=== PATIENT | female | born 1980 | race American Indian/Alaskan Native ===

== ENCOUNTER 2016-08-15 18:14 | Emergency (ER) | payer MEDICAID, OTHER ==
[2016-08-15 18:23] VITALS: BP 130/84
[2016-08-15] MEDS ORDERED: LORazepam 2 MG/ML MDV IVPUSH ONE (18:43)
[2016-08-15] MEDS ORDERED: Sodium Chloride 0.9% 10 ML Syringe FLUSH PRN (18:44)
[2016-08-15] MEDS ORDERED: Sodium Chloride 0.9% 2,000 ML IV ONE (18:44)
[2016-08-15] MEDS ORDERED: Propranolol 80 MG Cap.ER PO ONE (18:51)
--- NOTE | 2016-08-15 18:55 | EDM.PDOC ---
ED HPI GENERAL MEDICAL PROBLEM - General Chief Complaint: Chest Pain Stated Complaint: CHEST PAINS/ LEFT ARM NUMBNESS Time Seen by Provider: 08/15/16 18:35 Source of Information: Reports: Patient History Limitations: Reports: No Limitations - History of Present Illness INITIAL COMMENTS - FREE TEXT/NARRATIVE: Patient is a 36-year-old female presents ED complaining of numbness and tingling to her fingers bilaterally, left-sided chest discomfort, and anxiety. Patient states she has been 6 months sober and last night decided to drink alcohol again. She drank 2 pints of liquor over the course of the evening and this morning. Patient states she's feeling very anxious and has some mild palpitations. She has eaten today with no nausea or vomiting. Denies any fever/ chills, shortness of breath, abdominal pain, pain with urination, presyncope/ syncopal episodes, or any additional complaints. Duration: Constant Location: Reports: Generalized Severity: Mild Improves with: Reports: None Worsens with: Reports: None Context: Reports: Other (alcohol use) Associated Symptoms: Reports: Chest Pain, Loss of Appetite, Malaise. 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 Endocrine/Metabolic History: Reports: Obesity/BMI 30+ - Past Surgical History Female Surgical History: Reports: Tubal Ligation Social & Family History - Family History Family Medical History: Noncontributory - Tobacco Use Smoking Status *Q: Current Some Day Smoker Years of Tobacco use: 12 Packs/Tins Daily: 0 - Alcohol Use Days Per Week of Alcohol Use: 1 Number of Drinks Per Day: 12 Total Drinks Per Week: 12 Date of Last Drink: 08/15/16 Time of Last Drink: 05:00 - Recreational Drug Use Recreational Drug Use: No Drug Use in Last 12 Months: No ED ROS GENERAL - Review of Systems Review Of Systems: See Below Constitutional: Reports: Decreased Appetite. Denies: Fever, Chills HEENT: Reports: No Symptoms Respiratory: Denies: Shortness of Breath, Cough, Sputum Cardiovascular: Reports: Chest Pain. Denies: Dyspnea on Exertion, Palpitations GI/Abdominal: Denies: Abdominal Pain, Constipation, Diarrhea, Nausea, Vomiting : Denies: Dysuria Neurological: Reports: Dizziness, Numbness, Tingling. Denies: Confusion, Headache, Pre-Existing Deficit, Seizure, Syncope, Difficulty Walking Psychiatric: Reports: Anxiety ED EXAM, BEHAVIORAL HEALTH - Physical Exam Exam: See Below Exam Limited By: No Limitations General Appearance: Alert, WD/WN, Anxious Eye Exam: Bilateral Eye: EOMI, Nystagmus (horizontal), PERRL Ears: Hearing Grossly Normal Nose: Normal Inspection Throat/Mouth: Normal Voice, No Airway Compromise Neck: Normal Inspection, Supple, Non-Tender, Full Range of Motion Respiratory/Chest: No Respiratory Distress, Lungs Clear, Normal Breath Sounds, No Accessory Muscle Use, Chest Non-Tender Cardiovascular: Normal Peripheral Pulses, Regular Rate, Rhythm, No Murmur GI/Abdominal: Normal Bowel Sounds, Soft, Non-Tender, No Organomegaly, No Distention Back Exam: Normal Inspection. No: CVA Tenderness (L), CVA Tenderness (R) Extremities: Normal Inspection, Non-Tender, No Pedal Edema, Normal Capillary Refill Neurological: Alert, Normal Mood/Affect, CN II-XII Intact, Normal Cognition, No Motor/Sensory Deficits, Oriented x 3 Psychiatric: Alert, Normal Affect, Normal Cognition, Normal Mood, Oriented Skin Exam: Warm, Dry, Intact, Normal color, No rash COURSE, BEHAVIORAL HEALTH COMP - Course Vital Signs: Last Vital Signs Temp 98.5 F 08/15/16 18:19 Pulse 97 08/15/16 18:19 Resp 18 08/15/16 18:19 BP 130/84 08/15/16 18:19 Pulse Ox 97 08/15/16 18:19 Orders, Labs, Meds: Active Orders 24 hr Category Date Time Status EKG Documentation Completion [RC] STAT Care 08/15/16 19:29 Active Peripheral IV Care [RC] . DIRECTED Care 08/15/16 18:44 Active Chest 2V [CR] Stat Exams 08/15/16 18:43 Taken Peripheral IV Insertion Adult [OM.PC] Stat Oth 08/15/16 18:43 Ordered Laboratory Tests 08/15/16 08/15/16 08/15/16 Range/Units 19:37 19:37 19:37 WBC 7.77 (3.98-10.04) K/mm3 RBC 4.16 (3.98-5.22) M/mm3 Hgb 12.3 (11.2-15.7) gm/L Hct 37.5 (34.1-44.9) % MCV 90.1 (79.4-94.8) fl MCH 29.6 (25.6-32.2) pg MCHC 32.8 (32.2-35.5) g/dl RDW Std Deviation 48.9 H (36.4-46.3) fL Plt Count 298 (182-369) K/mm3 MPV 9.3 L (9.4-12.3) fl Neut % (Auto) 66.4 (34.0-71.1) % Lymph % (Auto) 24.5 (19.3-51.7) % Hood % (Auto) 7.2 (4.7-12.5) % Eos % (Auto) 1.3 (0.7-5.8) Baso % (Auto) 0.5 (0.1-1.2) % Neut # (Auto) 5.16 (1.56-6.13) K/mm3 Lymph # (Auto) 1.90 (1.18-3.74) K/mm3 Hood # (Auto) 0.56 H (0.24-0.36) K/mm3 Eos # (Auto) 0.10 (0.04-0.36) K/mm3 Baso # (Auto) 0.04 (0.01-0.08) K/mm3 Sodium 145 (136-145) mEq/L Potassium 3.5 (3.5-5.1) mEq/L Chloride 109 H (98-107) mEq/L Carbon Dioxide 20 L (21-32) mEq/L Anion Gap 19.5 H (5-15) BUN 6 L (7-18) mg/dL Creatinine 0.8 (0.55-1.02) mg/dL Est Cr Clr Drug Dosing TNP Estimated GFR (MDRD) > 60 (>60) mL/min BUN/Creatinine Ratio 7.5 L (14-18) Glucose 120 H (74-106) mg/dL Calcium 7.7 L (8.5-10.1) mg/dL Magnesium 1.8 (1.8-2.4) mg/dl Total Bilirubin 0.2 (0.2-1.0) mg/dL AST 34 (15-37) U/L ALT 52 (14-59) U/L Alkaline Phosphatase 80 (46-116) U/L Troponin I < 0.017 (0.00-0.056) ng/mL C-Reactive Protein 0.2 (<1.0) mg/dL Total Protein 7.2 (6.4-8.2) g/dl Albumin 3.5 (3.4-5.0) g/dl Globulin 3.7 gm/dL Albumin/Globulin Ratio 1.0 (1-2) Lipase 71 L (73-393) U/L TSH 3rd Generation 2.614 (0.358-3.74) uIU/mL HCG, Qual Negative (NEGATIVE) Urine Color (Yellow) Urine Appearance (Clear) Urine pH (5.0-8.0) Ur Specific Ren[place] (1.005-1.030) Urine Protein (Negative) Urine Glucose (UA) (Negative) Urine Ketones (Negative) Urine Occult Blood (Negative) Urine Nitrite (Negative) Urine Bilirubin (Negative) Urine Urobilinogen (0.2-1.0) Ur Leukocyte Esterase (Negative) Urine RBC (0-5) /hpf Urine WBC (0-5) /hpf Ur Epithelial Cells Ur Squamous Epith Cells (0-5) /hpf Urine Bacteria (FEW) /hpf Urine Mucus (FEW) /hpf Urine Opiates Screen (NEGATIVE) Ur Buprenorphine Scrn (NEGATIVE) Ur Oxycodone Screen (NEGATIVE) Urine Methadone Screen (NEGATIVE) Ur Propoxyphene Screen (NEGATIVE) Ur Barbiturates Screen (NEGATIVE) Ur Tricyclics Screen (NEGATIVE) Ur Phencyclidine Scrn (NEGATIVE) Ur Amphetamine Screen (NEGATIVE) U Methamphetamines Scrn (NEGATIVE) U Benzodiazepines Scrn (NEGATIVE) U Cocaine Metab Screen (NEGATIVE) U Marijuana (THC) Screen (NEGATIVE) Ethyl Alcohol 0.04 (0.00) gm% 08/15/16 08/15/16 Range/Units 20:26 20:26 WBC (3.98-10.04) K/mm3 RBC (3.98-5.22) M/mm3 Hgb (11.2-15.7) gm/L Hct (34.1-44.9) % MCV (79.4-94.8) fl MCH (25.6-32.2) pg MCHC (32.2-35.5) g/dl RDW Std Deviation (36.4-46.3) fL Plt Count (182-369) K/mm3 MPV (9.4-12.3) fl Neut % (Auto) (34.0-71.1) % Lymph % (Auto) (19.3-51.7) % Hood % (Auto) (4.7-12.5) % Eos % (Auto) (0.7-5.8) Baso % (Auto) (0.1-1.2) % Neut # (Auto) (1.56-6.13) K/mm3 Lymph # (Auto) (1.18-3.74) K/mm3 Hood # (Auto) (0.24-0.36) K/mm3 Eos # (Auto) (0.04-0.36) K/mm3 Baso # (Auto) (0.01-0.08) K/mm3 Sodium (136-145) mEq/L Potassium (3.5-5.1) mEq/L Chloride (98-107) mEq/L Carbon Dioxide (21-32) mEq/L Anion Gap (5-15) BUN (7-18) mg/dL Creatinine (0.55-1.02) mg/dL Est Cr Clr Drug Dosing Estimated GFR (MDRD) (>60) mL/min BUN/Creatinine Ratio (14-18) Glucose (74-106) mg/dL Calcium (8.5-10.1) mg/dL Magnesium (1.8-2.4) mg/dl Total Bilirubin (0.2-1.0) mg/dL AST (15-37) U/L ALT (14-59) U/L Alkaline Phosphatase (46-116) U/L Troponin I (0.00-0.056) ng/mL C-Reactive Protein (<1.0) mg/dL Total Protein (6.4-8.2) g/dl Albumin (3.4-5.0) g/dl Globulin gm/dL Albumin/Globulin Ratio (1-2) Lipase (73-393) U/L TSH 3rd Generation (0.358-3.74) uIU/mL HCG, Qual (NEGATIVE) Urine Color Yellow (Yellow) Urine Appearance Slt cloudy H (Clear) Urine pH 6.0 (5.0-8.0) Ur Specific Ren[place] > or = 1.030 (1.005-1.030) Urine Protein 1+ H (Negative) Urine Glucose (UA) Negative (Negative) Urine Ketones Negative (Negative) Urine Occult Blood 3+ H (Negative) Urine Nitrite Negative (Negative) Urine Bilirubin Negative (Negative) Urine Urobilinogen 0.2 (0.2-1.0) Ur Leukocyte Esterase Negative (Negative) Urine RBC >100 H (0-5) /hpf Urine WBC 0-5 (0-5) /hpf Ur Epithelial Cells Not Reportable Ur Squamous Epith Cells 0-5 (0-5) /hpf Urine Bacteria Moderate H (FEW) /hpf Urine Mucus Not seen (FEW) /hpf Urine Opiates Screen Negative (NEGATIVE) Ur Buprenorphine Scrn Negative (NEGATIVE) Ur Oxycodone Screen Negative (NEGATIVE) Urine Methadone Screen Negative (NEGATIVE) Ur Propoxyphene Screen Negative (NEGATIVE) Ur Barbiturates Screen Negative (NEGATIVE) Ur Tricyclics Screen Negative (NEGATIVE) Ur Phencyclidine Scrn Negative (NEGATIVE) Ur Amphetamine Screen Negative (NEGATIVE) U Methamphetamines Scrn Negative (NEGATIVE) U Benzodiazepines Scrn Negative (NEGATIVE) U Cocaine Metab Screen Negative (NEGATIVE) U Marijuana (THC) Screen Negative (NEGATIVE) Ethyl Alcohol (0.00) gm% Medications Discontinued Medications Generic Name Dose Route Start Last Admin Trade Name Freq PRN Reason Stop Dose Admin Sodium Chloride 2,000 mls @ 999 mls/hr 08/15/16 18:44 08/15/16 19:19 Normal Saline IV 08/15/16 20:44 999 mls/hr ONETIME ONE Administration Lorazepam 1 mg 08/15/16 18:43 08/15/16 19:20 Ativan IVPUSH 08/15/16 18:44 1 mg ONETIME ONE Administration Propranolol HCl 80 mg 08/15/16 18:51 08/15/16 21:14 Inderal La PO 08/15/16 18:52 80 mg ONETIME ONE Administration Sodium Chloride 10 ml 08/15/16 18:44 08/15/16 19:20 Saline Flush FLUSH 10 ml ASDIRECTED PRN Administration Keep Vein Open Re-Assessment/Re-Exam: Ordered a peripheral IV with normal saline 9 and 9 mL per hour, Ativan 1 mg IVP , and Inderal 80 mg p.o. Initial labs and studies include CBC, chem 14, CRP, lipase, EtOH, magnesium, troponin, TSH, EtOH, urine drug tox, and chest x-ray today. EKG: sinus rhythm rate of [address] changes. CXR: Did not reveal any acute findings. Final interpretation is pending. Labs reviewed: CBC is normal. Sodium 145, potassium 3.5, chloride 109, CO2 20, mg 1.8, anion gap is 19.5, Cr 0.8, troponin less than 0.017, lipase and one, TSH 2.614, hCG is negative. EtOH is 0.04. Urine drug tox was negative. Per nursing staff patient states she is back to baseline. She is ready to be discharged home. Will discharge patient with instructions as documented. Departure - Departure Time of Disposition: 21:07 Disposition: Home, Self-Care 01 Condition: good Clinical Impression: Alcohol abuse, Anxiety, Atypical chest pain - Discharge Information Instructions: Nonspecific Chest Pain, [id number] Referrals: Charity Roberts NP [Primary Care Provider] - Forms: ED Department Discharge Additional Instructions: See your PCP this coming week as needed. Refrain from alcohol use. No driving this evening since receiving a sedative medication. Return to the E.D. for any new or worsening symptoms. - My Orders Last 24 Hours: My Active Orders 08/15/16 18:43 Chest 2V [CR] Stat Peripheral IV Insertion Adult [OM.PC] Stat 08/15/16 18:44 Peripheral IV Care [RC] . DIRECTED 08/15/16 19:29 EKG Documentation Completion [RC] STAT - Assessment/Plan Last 24 Hours: My Active Orders 08/15/16 18:43 Chest 2V [CR] Stat Peripheral IV Insertion Adult [OM.PC] Stat 08/15/16 18:44 Peripheral IV Care [RC] . DIRECTED 08/15/16 19:29 EKG Documentation Completion [RC] STAT
--- NOTE | 2016-08-16 12:03 | CR ---
Chest: Two views of the chest were obtained. Comparison: No previous chest x-ray. Heart size and mediastinum are normal. Lungs are clear. Bony structures are grossly intact. Impression: 1. Nothing acute is identified on two-view chest x-ray. Diagnostic code #1
== END 2016-08-15 21:25 | disposition home or self-care (01) ==
LOC: JD.ED 18:14
DX: R07.89 Other chest pain (principal); F41.9 Anxiety disorder, unspecified; F10.10 Alcohol abuse, uncomplicated; J45.909 Unspecified asthma, uncomplicated; E66.9 Obesity, unspecified; F17.200 Nicotine dependence, unspecified, uncomplicated; Z98.51 Tubal ligation status; Y90.0 Blood alcohol level of less than 20 mg/100 ml
CPT/HCPCS: 36415; 71020; 80053; 80306; 81001; 83690; 83735; 84443; 84484; 84703; 85025; 86140; 93005; 96361; 96374; 99285; A9270; G0480; J2060; J7040; J7050; 99284

== ENCOUNTER 2016-09-18 21:15 | Emergency (ER) | payer MEDICAID ==
[2016-09-18 21:32] VITALS: BP 144/102
--- NOTE | 2016-09-18 21:42 | EDM.PDOC ---
ED HPI GENERAL MEDICAL PROBLEM - General Chief Complaint: Drug or Alcohol Abuse Stated Complaint: ANXIETY Time Seen by Provider: 09/18/16 21:42 Source of Information: Reports: Patient History Limitations: Reports: No Limitations - History of Present Illness INITIAL COMMENTS - FREE TEXT/NARRATIVE: 36-year-old female with ancestry attends the ED feeling quite anxious and nauseated and jittery after heavy bout of drinking last night. Patient has a history of alcoholism and quit completely in March. She wasn't going to drink at all last night but a picture arrived on the table and so she opted to have a drink. This led to of course several more drinks and mixed drinks and lost control She is nauseated but did eat a little bit today. She feels it still in her stomach. She has some mild diffuse upper abdominal pain but has not had any vomiting or diarrhea. She does have a mild headache and sinus symptoms of hangover. She's never had a seizure convulsion when she stopped drinking. Onset: Today (Was drinking alcohol very heavily last night.) Onset Date: 09/18/16 (Hangover symptoms plus a lot of anxiety and jitteriness about alcohol use. Good deal of guilt surrounds the use of alcohol because of her history of alcoholism.) Duration: Hour(s): (Finds she just can't relax.) Location: Reports: Generalized Quality: Reports: Other (Anxious.) Severity: Moderate Improves with: Reports: None Worsens with: Reports: None Context: Reports: Other (Heavy alcohol use last evening.). Denies: Activity, Exercise, Lifting, Sick Contact, Trauma Associated Symptoms: Reports: Headaches, Loss of Appetite, Nausea/Vomiting, Weakness, Other (Feels jittery inside.). 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) (9.) - Related Data Allergies Allergy/AdvReac Type Severity Reaction Status Date / Time No Known Allergies Allergy Verified 08/15/16 18:23 Home Meds: Home Meds Cyclobenzaprine [Flexeril] 5 mg PO TID PRN 09/18/16 [History] LORazepam [Ativan] 1 mg PO Q6H PRN #3 tablet 09/18/16 [Rx] Past Medical History - Past Health History Medical/Surgical History: Denies Medical/Surgical History HEENT History: Reports: Impaired Vision Respiratory History: Reports: Asthma Gastrointestinal History: Reports: Helicobacter 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 Endocrine/Metabolic History: Reports: Obesity/BMI 30+ - Past Surgical History Female Surgical History: Reports: Tubal Ligation Social & Family History - Family History Family Medical History: Noncontributory - Tobacco Use Smoking Status *Q: Light Tobacco Smoker Years of Tobacco use: 5 Packs/Tins Daily: 0.1 - Alcohol Use Days Per Week of Alcohol Use: 1 Number of Drinks Per Day: 12 Total Drinks Per Week: 12 - Recreational Drug Use Recreational Drug Use: No Drug Use in Last 12 Months: No - Living Situation & Occupation Living situation: Reports: Single Occupation: Unemployed ED ROS GENERAL - Review of Systems Review Of Systems: See Below Constitutional: Reports: Malaise, Weakness, Fatigue, Decreased Appetite. Denies : Fever, Chills, Weight Loss HEENT: Reports: Other Respiratory: Reports: No Symptoms (Dry mouth) Cardiovascular: Reports: No Symptoms Endocrine: Reports: No Symptoms GI/Abdominal: Reports: Abdominal Pain (Mild upper abdominal pain the pit of the stomach and left upper quadrant.), Nausea. Denies: Stool Incontinence, Vomiting : Reports: No Symptoms Musculoskeletal: Reports: No Symptoms Skin: Reports: No Symptoms Neurological: Reports: Other (Feels anxious and jittery.) Psychiatric: Reports: Anxiety, Other Hematologic/Lymphatic: Reports: No Symptoms Immunologic: Reports: No Symptoms ED EXAM, BEHAVIORAL HEALTH - Physical Exam Exam: See Below Exam Limited By: Uncooperative General Appearance: Alert, Anxious, Moderate Distress Eye Exam: Bilateral Eye: Normal Inspection Throat/Mouth: Normal Inspection, Normal Oropharynx, Other Head: Atraumatic, Normocephalic (Lungs quite dry ) Neck: Normal Inspection, Supple, Non-Tender, Full Range of Motion. No: Lymphadenopathy (L), Lymphadenopathy (R) Respiratory/Chest: No Respiratory Distress, Lungs Clear, Normal Breath Sounds Cardiovascular: Normal Peripheral Pulses, Regular Rate, Rhythm, No Edema, No Murmur GI/Abdominal: Normal Bowel Sounds, Soft, No Distention, No Mass, Tender (Mild tenderness in the epigastrium and left upper quadrant with no rebound or guarding.) Back Exam: Normal Inspection, Full Range of Motion Extremities: Normal Inspection, Normal Range of Motion, Non-Tender, No Pedal Edema, Normal Capillary Refill Neurological: Alert, Normal Mood/Affect, CN II-XII Intact, Normal Cognition, Oriented x 3 Skin Exam: Warm, Dry, Intact, Normal color, No rash COURSE, BEHAVIORAL HEALTH COMP - Course Vital Signs: Last Vital Signs Temp 36.8 C 09/18/16 21:29 Pulse 85 09/18/16 21:29 Resp 16 09/18/16 21:29 BP 144/102 H 09/18/16 21:29 Pulse Ox 98 09/18/16 21:29 Orders, Labs, Meds: Medications Discontinued Medications Generic Name Dose Route Start Last Admin Trade Name José Miguel PRN Reason Stop Dose Admin Lorazepam 2 mg 09/18/16 21:47 09/18/16 21:58 Ativan PO 09/18/16 21:48 2 mg ONETIME ONE Administration Lorazepam Confirm 09/18/16 21:59 Ativan Administered 09/18/16 22:00 Dose 1 mg .ROUTE .STK-MED ONE Lorazepam Confirm 09/18/16 22:22 Ativan Administered 09/18/16 22:23 Dose 3 mg .ROUTE .STK-MED ONE Metoclopramide HCl 10 mg 09/18/16 21:47 09/18/16 21:58 Reglan PO 09/18/16 21:48 10 mg ONETIME ONE Administration Re-Assessment/Re-Exam: 36-year-old female of [place] ancestry presents to the ED after drinking alcohol very heavily last night. She is a chronic alcoholic but stopped drinking in March. She fell off the wagon last night. She feels very jittery and anxious and guilty about what is occurred yesterday. She's not been able to eat much. She feels somewhat nauseated. She's never had a seizure after alcohol binge drinking. Plan Reglan 10 mg by mouth T's nausea and improve her stomach function. Ativan 2 mg per ora to relieve acute anxiety. We'll send her home with rate 1 mg tablets of Ativan from the [facility] said she can take every 6- 8 hours if needed for the next day to relieve anxiety symptoms. Advised to hydrate well with Gatorade or Powerade. Follow-up if needed. Departure - Departure Time of Disposition: 21:55 Disposition: Home, Self-Care 01 Condition: Fair Clinical Impression: Alcohol withdrawal syndrome Qualifiers: Complication of substance-induced condition: uncomplicated Qualified Code(s): F10.230 - Alcohol dependence with withdrawal, uncomplicated - Discharge Information Prescriptions: LORazepam [Ativan] 1 mg PO Q6H PRN #3 tablet PRN Reason: alchol withdrawl Instructions: Alcohol Intoxication, [id number] Referrals: Carmen Epperson MD [Primary Care Provider] - Additional Instructions: Evaluation in the emergency room today in regards to feeling of anxiety nausea and guilt about drinking alcohol heavily last night. History of alcohol abuse in the past but have stopped drinking but fell off the wagon last night. Suggest plenty of fluids such as Gatorade or Powerade to rehydrate you. Your given Reglan 10 mg by mouth that should alleviate nausea and improve stomach function. Ativan 2 mg given by mouth relieve jitteriness and anxiety feelings that you're experiencing. Also sent home 3 tablets of Ativan 1 mg strength of it can be taken every 6-8 hours if needed for further anxiety relief tomorrow. Cannot drive a motor vehicle while taking Ativan as it impairs you similar to alcohol. Follow-up with personal care provider if any further problems occur.
[2016-09-18] MEDS ORDERED: LORazepam 1 MG Tab PO ONE (21:47)
[2016-09-18] MEDS ORDERED: Metoclopramide 10 MG Tab PO ONE (21:47)
[2016-09-18] MEDS ORDERED: LORazepam 1 MG Tab ONE ×2 (21:59→22:22)
== END 2016-09-18 23:03 | disposition home or self-care (01) ==
LOC: JD.ED 21:15
DX: F10.230 Alcohol dependence with withdrawal, uncomplicated (principal); J45.909 Unspecified asthma, uncomplicated; F41.9 Anxiety disorder, unspecified; F17.210 Nicotine dependence, cigarettes, uncomplicated; E66.9 Obesity, unspecified; Z68.42 Body mass index [BMI] 45.0-49.9, adult; Z98.51 Tubal ligation status
CPT/HCPCS: 99283; A9270

== ENCOUNTER 2016-11-05 18:20 | Emergency (ER) | payer MEDICAID ==
[2016-11-05 18:29] VITALS: BP 143/102
--- NOTE | 2016-11-05 19:31 | EDM.PDOC ---
ED HPI GENERAL MEDICAL PROBLEM - General Chief Complaint: Behavioral/Psych Stated Complaint: Anxiety Time Seen by Provider: 11/05/16 19:20 Source of Information: Reports: Patient, Old Records, RN Notes Reviewed History Limitations: Reports: No Limitations - History of Present Illness INITIAL COMMENTS - FREE TEXT/NARRATIVE: 36 year old female presents to the ED with complaints of anxiety and a panic attack. She reports drinking two mixed drinks last night. She awoke this morning feeling hungover and anxious. Around 4 this afternoon she started having a panic attack. She says this has happened in the past after drinking. She says her last drink was in August of this year. She used to drink quite heavily. She does not taking anything for anxiety. She had this same experience in August when she drank and resulted in an ER visit. She denies suicidal ideation or plan. No nausea or vomiting this afternoon. - Related Data Allergies Allergy/AdvReac Type Severity Reaction Status Date / Time No Known Allergies Allergy Verified 11/05/16 18:30 Home Meds: Home Meds Cyclobenzaprine [Flexeril] 5 mg PO TID PRN 09/18/16 [History] LORazepam [Ativan] 1 mg PO Q6H PRN #3 tablet 09/18/16 [Rx] Past Medical History - Past Health History Medical/Surgical History: Denies Medical/Surgical History HEENT History: Reports: Impaired Vision, Other (See Below) Other HEENT History: ringing of ears Cardiovascular History: Reports: Other (See Below) Other Cardiovascular History: chest pains with anxiety attacks Respiratory History: Reports: Asthma Gastrointestinal History: Reports: Helicobacter Pylori 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) Other OB/BYN History: ovarian cyst, hydrosalpinx, menorrhagia, pelvic pain and pressure Musculoskeletal History: Reports: Back Pain, Chronic, Neck Pain, Chronic Psychiatric History: Reports: Addiction, Anxiety Other Psychiatric History: patient has hx of alcohol abuse, was sober for awhile but has been drinking alcohol again Endocrine/Metabolic History: Reports: Obesity/BMI 30+ - Past Surgical History Female Surgical History: Reports: Tubal Ligation Social & Family History - Family History Family Medical History: Noncontributory - Tobacco Use Smoking Status *Q: Current Every Day Smoker Years of Tobacco use: 23 Packs/Tins Daily: 0.2 - Caffeine Use Caffeine Use: Reports: Soda, Tea - Alcohol Use Days Per Week of Alcohol Use: 1 Number of Drinks Per Day: 12 Total Drinks Per Week: 12 - Recreational Drug Use Recreational Drug Use: No Drug Use in Last 12 Months: No - Living Situation & Occupation Living situation: Reports: Single Occupation: Unemployed ED ROS GENERAL - Review of Systems Review Of Systems: See Below Constitutional: Reports: No Symptoms. Denies: Fever, Chills Respiratory: Reports: No Symptoms. Denies: Shortness of Breath Cardiovascular: Reports: No Symptoms. Denies: Chest Pain GI/Abdominal: Reports: No Symptoms. Denies: Abdominal Pain, Nausea, Vomiting Neurological: Reports: No Symptoms. Denies: Headache, Numbness, Tingling, Weakness Psychiatric: Reports: Anxiety ED EXAM, GENERAL - Physical Exam Exam: See Below Exam Limited By: No Limitations General Appearance: Alert, Anxious, Obese Eye Exam: Bilateral Eye: EOMI, PERRL Respiratory/Chest: No Respiratory Distress, Lungs Clear, Normal Breath Sounds Cardiovascular: Regular Rate, Rhythm GI/Abdominal: Normal Bowel Sounds, Soft, Non-Tender Neurological: Alert, Oriented, Normal Cognition, Normal Gait, Other (does not appear intoxicated at this time) Psychiatric: Anxious Skin Exam: Warm, Dry, Intact Course - Vital Signs Last Recorded V/S: Last Vital Signs Temp 98.5 F 11/05/16 18:26 Pulse 91 11/05/16 18:26 Resp 20 11/05/16 18:26 BP 143/102 H 11/05/16 18:26 Pulse Ox 98 11/05/16 18:26 - Orders/Labs/Meds Meds: Medications Discontinued Medications Generic Name Dose Route Start Last Admin Trade Name José Miguel PRN Reason Stop Dose Admin Lorazepam 1 mg 11/05/16 19:29 Ativan IM 11/05/16 19:30 ONETIME ONE - Re-Assessments/Exams Free Text/Narrative Re-Assessment/Exam: Patient does not appear intoxicated. Exam is normal. No further workup needed. Will refer to the clinic for further management of anxiety. Ativan 1mg IM given in the ER for panic attack. Discharge instructions as documented. Departure - Departure Time of Disposition: 20:00 Disposition: Home, Self-Care 01 Condition: Good Clinical Impression: Panic disorder - Discharge Information Instructions: Panic Attacks, [id number] Referrals: PCP,None [Primary Care Provider] - Forms: ED Department Discharge Additional Instructions: Follow-up with your primary care provider if you continue to struggle with anxiety If you do not have a primary care provider, you can establish with one in our clinic. Call [phone] to schedule We have same and next day appointments available. No driving today due to sedating medications given in the ER I recommend that you abstain from alcohol
[2016-11-05] MEDS: LORazepam 2 MG/ML MDV IM ONE ×2 (19:40→19:42)
== END 2016-11-05 19:45 | disposition home or self-care (01) ==
LOC: JD.ED 18:20
DX: F41.0 Panic disorder [episodic paroxysmal anxiety] (principal); J45.909 Unspecified asthma, uncomplicated; E66.9 Obesity, unspecified; F17.210 Nicotine dependence, cigarettes, uncomplicated; Z98.51 Tubal ligation status
CPT/HCPCS: 96372; 99283; J2060

== ENCOUNTER 2017-03-19 12:34 | Emergency (ER) | payer MEDICAID ==
[2017-03-19 12:53] VITALS: BP 160/97
[2017-03-19] MEDS ORDERED: Sodium Chloride 0.9% 10 ML Syringe FLUSH PRN (12:58)
[2017-03-19] MEDS ORDERED: LORazepam 1 MG Tab PO ONE (13:15)
--- NOTE | 2017-03-19 15:38 | EDM.PDOC ---
ED HPI GENERAL MEDICAL PROBLEM - General Chief Complaint: Chest Pain Stated Complaint: CHEST PAIN AND LT ARM PAIN Time Seen by Provider: 03/19/17 12:55 Source of Information: Reports: Patient, RN Notes Reviewed - History of Present Illness INITIAL COMMENTS - FREE TEXT/NARRATIVE: 37-year-old female has come in by ambulance with complaint of severe chest discomfort, palpitations. This was especially bad this past morning about 4-6 hours ago. He'll does have some mild discomfort but now somewhat improved. No abdominal pain nausea or vomiting. She's had occasional nonproductive cough. No recent fever or chills. He states she is borderline diabetic. No known history for hypertension or coronary artery disease. She states she is been dealing with anxiety on "almost a daily basis". Treatments DIRECTOR TRAFFIC AND PLANNING: Reports: Other (see below) Other Treatments DIRECTOR TRAFFIC AND PLANNING: none Chest Pain Score (Numeric/FACES): 4 - Related Data Allergies Allergy/AdvReac Type Severity Reaction Status Date / Time No Known Allergies Allergy Verified 11/05/16 18:30 Home Meds: Home Meds Calcium Carbonate [Calcium] 600 mg PO DAILY 03/19/17 [History] Cholecalciferol (Vitamin D3) [Vitamin D3] 1,000 units PO DAILY 03/19/17 [History ] Fish Oil/[place]-3 Fatty Acids [Fish Oil 1,000 MG] 1 cap PO BID 03/19/17 [History] metFORMIN [Glucophage] 500 mg PO DAILY 03/19/17 [History] Past Medical History - Past Health History Medical/Surgical History: Denies Medical/Surgical History HEENT History: Reports: Impaired Vision, Other (See Below) Other HEENT History: ringing of ears Cardiovascular History: Reports: Other (See Below) Other Cardiovascular History: chest pains with anxiety attacks Respiratory History: Reports: Asthma Gastrointestinal History: Reports: Helicobacter Pylori 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) Other OB/BYN History: ovarian cyst, hydrosalpinx, menorrhagia, pelvic pain and pressure Musculoskeletal History: Reports: Back Pain, Chronic, Neck Pain, Chronic Psychiatric History: Reports: Addiction, Anxiety Other Psychiatric History: patient has hx of alcohol abuse, was sober for awhile but has been drinking alcohol again Endocrine/Metabolic History: Reports: Obesity/BMI 30+ - Past Surgical History Female Surgical History: Reports: Tubal Ligation Social & Family History - Family History Family Medical History: Noncontributory - Tobacco Use Smoking Status *Q: Former Smoker Years of Tobacco use: 23 Packs/Tins Daily: 0.2 Used Tobacco, but Quit: Yes Month Tobacco Last Used: Mar 07 - Caffeine Use Caffeine Use: Reports: None - Alcohol Use Days Per Week of Alcohol Use: 1 Number of Drinks Per Day: 12 Total Drinks Per Week: 12 - Recreational Drug Use Recreational Drug Use: No Drug Use in Last 12 Months: No - Living Situation & Occupation Living situation: Reports: Single Occupation: Unemployed ED ROS GENERAL - Review of Systems Review Of Systems: See Below Constitutional: Denies: Fever, Chills, Diaphoresis HEENT: Denies: Sinus Problem, Throat Pain Respiratory: Reports: Shortness of Breath (mild, gone). Denies: Cough Cardiovascular: Reports: Chest Pain (gone), Blood Pressure Problem, Palpitations GI/Abdominal: Denies: Abdominal Pain, Nausea, Vomiting Musculoskeletal: Reports: No Symptoms Skin: Reports: No Symptoms Neurological: Reports: Dizziness, Numbness, Tingling ED EXAM, GENERAL - Physical Exam Exam: See Below General Appearance: Alert, Anxious, Mild Distress Eye Exam: Bilateral Eye: PERRL Throat/Mouth: Normal Inspection, Normal Oropharynx Head: Atraumatic. No: Facial Swelling Neck: Supple, Full Range of Motion Respiratory/Chest: No Respiratory Distress, Lungs Clear, Normal Breath Sounds Cardiovascular: Regular Rate, Rhythm GI/Abdominal: Soft, Non-Tender Back Exam: No: CVA Tenderness (L), CVA Tenderness (R) Extremities: Normal Inspection, Normal Range of Motion. No: Pedal Edema, Leg Pain Neurological: Alert, Oriented, No Motor/Sensory Deficits Skin Exam: Warm, Dry, Normal Color EKG INTERPRETATION EKG Date: 03/19/17 Rhythm: NSR [place]: Normal P-Wave: Present QRS: Normal ST-T: Normal Course - Vital Signs Last Recorded V/S: Last Vital Signs Temp 97.5 F 03/19/17 12:52 Pulse 79 03/19/17 12:52 Resp 20 03/19/17 12:52 BP 160/97 H 03/19/17 12:52 Pulse Ox 97 03/19/17 12:52 - Orders/Labs/Meds Orders: Active Orders 24 hr Category Date Time Status EKG 12 Lead [EKG Documentation Completion] [RC] STAT Care 03/19/17 12:59 Active Peripheral IV Care [RC] . DIRECTED Care 03/19/17 12:59 Active Sodium Chloride 0.9% [Saline Flush] Med 03/19/17 12:58 Active 10 ml FLUSH ASDIRECTED PRN Peripheral IV Insertion Adult [OM.PC] Stat Oth 03/19/17 12:59 Ordered Medication Orders Sodium Chloride (Saline Flush) 10 ml FLUSH ASDIRECTED PRN PRN Reason: Keep Vein Open Last Admin: 03/19/17 13:33 Dose: 10 ml Labs: Laboratory Tests 03/19/17 03/19/17 03/19/17 Range/Units 13:40 13:40 13:40 WBC 7.83 (3.98-10.04) K/mm3 RBC 4.24 (3.98-5.22) M/mm3 Hgb 13.3 (11.2-15.7) gm/L Hct 39.8 (34.1-44.9) % MCV 93.9 (79.4-94.8) fl MCH 31.4 (25.6-32.2) pg MCHC 33.4 (32.2-35.5) g/dl RDW Std Deviation 45.5 (36.4-46.3) fL Plt Count 267 (182-369) K/mm3 MPV 9.6 (9.4-12.3) fl Neut % (Auto) 68.5 (34.0-71.1) % Lymph % (Auto) 21.5 (19.3-51.7) % [place] % (Auto) 8.3 (4.7-12.5) % Eos % (Auto) 1.1 (0.7-5.8) Baso % (Auto) 0.5 (0.1-1.2) % Neut # (Auto) 5.36 (1.56-6.13) K/mm3 Lymph # (Auto) 1.68 (1.18-3.74) K/mm3 [place] # (Auto) 0.65 H (0.24-0.36) K/mm3 Eos # (Auto) 0.09 (0.04-0.36) K/mm3 Baso # (Auto) 0.04 (0.01-0.08) K/mm3 Manual Slide Review Not Reportable Sodium 141 (136-145) mEq/L Potassium 3.9 (3.5-5.1) mEq/L Chloride 106 (98-107) mEq/L Carbon Dioxide 22 (21-32) mEq/L Anion Gap 16.9 H (5-15) BUN 10 (7-18) mg/dL Creatinine 0.7 (0.55-1.02) mg/dL Est Cr Clr Drug Dosing 108.04 mL/min Estimated GFR (MDRD) > 60 (>60) mL/min BUN/Creatinine Ratio 14.3 (14-18) Glucose 125 H (74-106) mg/dL Calcium 8.7 (8.5-10.1) mg/dL Total Bilirubin 0.3 (0.2-1.0) mg/dL AST 96 H (15-37) U/L ALT 188 H (14-59) U/L Alkaline Phosphatase 79 (46-116) U/L Troponin I < 0.017 (0.00-0.056) ng/mL Total Protein 7.4 (6.4-8.2) g/dl Albumin 3.7 (3.4-5.0) g/dl Globulin 3.7 gm/dL Albumin/Globulin Ratio 1.0 (1-2) Meds: Medications Generic Name Dose Route Start Last Admin Trade Name Freq PRN Reason Stop Dose Admin Sodium Chloride 10 ml 03/19/17 12:58 03/19/17 13:33 Saline Flush FLUSH 10 ml ASDIRECTED PRN Administration Keep Vein Open Discontinued Medications Generic Name Dose Route Start Last Admin Trade Name Freq PRN Reason Stop Dose Admin Lorazepam 1 mg 03/19/17 13:15 03/19/17 13:32 Ativan PO 03/19/17 13:16 1 mg ONETIME ONE Administration - Re-Assessments/Exams Free Text/Narrative Re-Assessment/Exam: 03/19/17 16:05 Labs are all relatively normal, EKG was good. Troponins come back normal. Sats of been running 98-100%. night monitor showing sinus rhythm, no ectopy. We did give Ativan 1 mg IV and that almost immediately helped her relax with no further chest discomfort or palpitations. Departure - Departure Time of Disposition: 15:46 Disposition: Home, Self-Care 01 Condition: Fair Clinical Impression: Atypical chest pain, Anxiety, Palpitations Instructions: Panic Attacks, [id number], Nonspecific Chest Pain Referrals: Carmen Epperson MD [Primary Care Provider] - Forms: ED Department Discharge Additional Instructions: Continue to avoid caffeine, drink plenty of water to maintain hydration, try work harder on a regular exercise program, practice slow deep breathing when you do get anxious, continue current medications as previously prescribed, follow-up with your regular medical provider early next week, call for appointment - My Orders Last 24 Hours: My Active Orders 03/19/17 12:58 Sodium Chloride 0.9% [Saline Flush] 10 ml FLUSH ASDIRECTED PRN 03/19/17 12:59 EKG 12 Lead [EKG Documentation Completion] [RC] STAT Peripheral IV Care [RC] . DIRECTED Peripheral IV Insertion Adult [OM.PC] Stat - Assessment/Plan Last 24 Hours: My Active Orders 03/19/17 12:58 Sodium Chloride 0.9% [Saline Flush] 10 ml FLUSH ASDIRECTED PRN 03/19/17 12:59 EKG 12 Lead [EKG Documentation Completion] [RC] STAT Peripheral IV Care [RC] . DIRECTED Peripheral IV Insertion Adult [OM.PC] Stat
== END 2017-03-19 16:00 | disposition home or self-care (01) ==
LOC: JD.ED 12:34
DX: F41.9 Anxiety disorder, unspecified (principal); R07.89 Other chest pain; Z79.84 Long term (current) use of oral hypoglycemic drugs; Z87.891 Personal history of nicotine dependence
CPT/HCPCS: 36415; 80053; 84484; 85025; 93005; 99285; A9270; J7050; 93010; 99283-25

== ENCOUNTER 2017-08-16 06:03 | Emergency (ER) | payer MEDICAID ==
[2017-08-16] MEDS ORDERED: Sodium Chloride 0.9% 1,000 ML IV STA (06:24)
[2017-08-16] MEDS ORDERED: Sodium Chloride 0.9% 10 ML Syringe FLUSH PRN (06:24)
[2017-08-16] MEDS ORDERED: Ondansetron 4 MG/2 ML SDV IVPUSH ONE (06:24)
[2017-08-16] MEDS ORDERED: HYDROmorphone 0.5 MG/0.5 ML SYRINGE IVPUSH ONE (06:25)
--- NOTE | 2017-08-16 06:35 | EDM.PDOC ---
<RuthyalejandroMikeRaymond - Last Filed: 08/16/17 06:30> ED HPI GENERAL MEDICAL PROBLEM - General Chief Complaint: Abdominal Pain Stated Complaint: ABDOMINAL PAIN Time Seen by Provider: 08/16/17 06:19 Source of Information: Reports: Patient History Limitations: Reports: No Limitations - History of Present Illness INITIAL COMMENTS - FREE TEXT/NARRATIVE: The patient presents with RUQ abdominal pain. This started about 2 this morning. She has a history of gallstones. She last ate last night at 10pm. She has nausea but no vomiting. She has no fever, chills, cough, chest pain, shortness of breath, dysuria or diarrhea. She has not had trouble with her gallbladder in years. Onset: Gradual Duration: Hour(s): (2am) Location: Reports: Abdomen Quality: Reports: Sharp Severity: Severe Improves with: Reports: None Worsens with: Reports: None Associated Symptoms: Reports: Nausea/Vomiting. Denies: Chest Pain, Cough, Fever /Chills, Headaches, Shortness of Breath Right Upper Abdomen Pain Score (Numeric/FACES): 8 - Related Data Allergies Allergy/AdvReac Type Severity Reaction Status Date / Time No Known Allergies Allergy Verified 08/16/17 06:14 Home Meds: Home Meds Calcium Carbonate [Calcium] 600 mg PO DAILY 03/19/17 [History] Cholecalciferol (Vitamin D3) [Vitamin D3] 1,000 units PO DAILY 03/19/17 [History ] Fish Oil/[place]ott-3 Fatty Acids [Fish Oil 1,000 MG] 1 cap PO BID 03/19/17 [History] metFORMIN [Glucophage] 500 mg PO DAILY 03/19/17 [History] Past Medical History - Past Health History Medical/Surgical History: Denies Medical/Surgical History HEENT History: Reports: Impaired Vision, Other (See Below) Other HEENT History: ringing of ears Cardiovascular History: Reports: Other (See Below) Other Cardiovascular History: chest pains with anxiety attacks Respiratory History: Reports: Asthma Gastrointestinal History: Reports: Helicobacter 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) Other OB/BYN History: ovarian cyst, hydrosalpinx, menorrhagia, pelvic pain and pressure Musculoskeletal History: Reports: Back Pain, Chronic, Neck Pain, Chronic Psychiatric History: Reports: Addiction, Anxiety Other Psychiatric History: patient has hx of alcohol abuse Endocrine/Metabolic History: Reports: Diabetes, Type II, Obesity/BMI 30+ - Past Surgical History Female Surgical History: Reports: Tubal Ligation Social & Family History - Family History Family Medical History: Noncontributory - Tobacco Use Smoking Status *Q: Former Smoker Used Tobacco, but Quit: Yes Month/Year Tobacco Last Used: Apr 2017 - Caffeine Use Caffeine Use: Reports: Tea - Recreational Drug Use Recreational Drug Use: No - Living Situation & Occupation Living situation: Reports: Single Occupation: Unemployed ED ROS GENERAL - Review of Systems Review Of Systems: See Below Constitutional: Reports: No Symptoms HEENT: Reports: No Symptoms Respiratory: Reports: No Symptoms Cardiovascular: Reports: No Symptoms Endocrine: Reports: No Symptoms GI/Abdominal: Reports: Abdominal Pain, Nausea. Denies: Diarrhea, Vomiting : Reports: No Symptoms Musculoskeletal: Reports: No Symptoms ED EXAM, GI/ABD - Physical Exam Exam: See Below Exam Limited By: No Limitations General Appearance: Alert, No Apparent Distress Ears: Normal External Exam Nose: Normal Inspection Head: Atraumatic, Normocephalic Neck: Normal Inspection Respiratory/Chest: No Respiratory Distress, Lungs Clear, Normal Breath Sounds Cardiovascular: Regular Rate, Rhythm, No Edema, No Murmur GI/Abdominal Exam: Soft, No Organomegaly, No Mass, Tender (Moderate tenderness to the RUQ) Back Exam: Normal Inspection Extremities: Normal Inspection Course - Vital Signs Last Recorded V/S: Last Vital Signs Temp 98.1 F 08/16/17 06:12 Pulse 71 08/16/17 06:12 Resp 18 08/16/17 06:12 BP 143/67 H 08/16/17 06:12 Pulse Ox 96 08/16/17 06:12 - Orders/Labs/Meds Orders: Active Orders 24 hr Category Date Time Status Peripheral IV Care [RC] . DIRECTED Care 08/16/17 06:24 Active UA W/MICROSCOPIC [URIN] Stat Lab 08/16/17 06:38 Ordered Sodium Chloride 0.9% [Saline Flush] Med 08/16/17 06:24 Active 10 ml FLUSH ASDIRECTED PRN ED Antiemetic Medication Reflex [OM.PC] Stat Oth 08/16/17 06:24 Ordered Peripheral IV Insertion Adult [OM.PC] Stat Oth 08/16/17 06:24 Ordered Medication Orders Sodium Chloride (Saline Flush) 10 ml FLUSH ASDIRECTED PRN PRN Reason: Keep Vein Open Last Admin: 08/16/17 06:45 Dose: 10 ml Labs: Laboratory Tests 08/16/17 08/16/17 08/16/17 Range/Units 06:38 06:40 06:40 WBC 13.83 H (3.98-10.04) K/mm3 RBC 4.25 (3.98-5.22) M/mm3 Hgb 12.9 (11.2-15.7) gm/L Hct 39.7 (34.1-44.9) % MCV 93.4 (79.4-94.8) fl MCH 30.4 (25.6-32.2) pg MCHC 32.5 (32.2-35.5) g/dl RDW Std Deviation 43.9 (36.4-46.3) fL Plt Count 281 (182-369) K/mm3 MPV 10.0 (9.4-12.3) fl Neut % (Auto) 79.2 H (34.0-71.1) % Lymph % (Auto) 14.9 L (19.3-51.7) % [place] % (Auto) 4.7 (4.7-12.5) % Eos % (Auto) 1.0 (0.7-5.8) Baso % (Auto) 0.1 (0.1-1.2) % Neut # (Auto) 10.94 H (1.56-6.13) K/mm3 Lymph # (Auto) 2.06 (1.18-3.74) K/mm3 [place] # (Auto) 0.65 H (0.24-0.36) K/mm3 Eos # (Auto) 0.14 (0.04-0.36) K/mm3 Baso # (Auto) 0.02 (0.01-0.08) K/mm3 Sodium 142 (136-145) mEq/L Potassium 3.8 (3.5-5.1) mEq/L Chloride 106 (98-107) mEq/L Carbon Dioxide 23 (21-32) mEq/L Anion Gap 16.8 H (5-15) BUN 13 (7-18) mg/dL Creatinine 0.9 (0.55-1.02) mg/dL Est Cr Clr Drug Dosing 90.31 mL/min Estimated GFR (MDRD) > 60 (>60) mL/min BUN/Creatinine Ratio 14.4 (14-18) Glucose 118 H (74-106) mg/dL Calcium 8.7 (8.5-10.1) mg/dL Total Bilirubin 0.4 (0.2-1.0) mg/dL AST 18 (15-37) U/L ALT 39 (14-59) U/L Alkaline Phosphatase 72 (46-116) U/L Total Protein 7.8 (6.4-8.2) g/dl Albumin 3.9 (3.4-5.0) g/dl Globulin 3.9 gm/dL Albumin/Globulin Ratio 1.0 (1-2) Lipase 74 (73-393) U/L HCG, Qual (NEGATIVE) Urine Color Yellow (Yellow) Urine Appearance Clear (Clear) Urine pH 7.0 (5.0-8.0) Ur Specific [place] 1.020 (1.005-1.030) Urine Protein Negative (Negative) Urine Glucose (UA) Negative (Negative) Urine Ketones Negative (Negative) Urine Occult Blood Negative (Negative) Urine Nitrite Negative (Negative) Urine Bilirubin Negative (Negative) Urine Urobilinogen 0.2 (0.2-1.0) Ur Leukocyte Esterase Negative (Negative) Urine RBC Not seen (0-5) /hpf Urine WBC 0-5 (0-5) /hpf Ur Epithelial Cells 0-5 (0-5) /hpf Urine Bacteria Few (FEW) /hpf Urine Mucus Not seen (FEW) /hpf 08/16/17 Range/Units 06:40 WBC (3.98-10.04) K/mm3 RBC (3.98-5.22) M/mm3 Hgb (11.2-15.7) gm/L Hct (34.1-44.9) % MCV (79.4-94.8) fl MCH (25.6-32.2) pg MCHC (32.2-35.5) g/dl RDW Std Deviation (36.4-46.3) fL Plt Count (182-369) K/mm3 MPV (9.4-12.3) fl Neut % (Auto) (34.0-71.1) % Lymph % (Auto) (19.3-51.7) % [place] % (Auto) (4.7-12.5) % Eos % (Auto) (0.7-5.8) Baso % (Auto) (0.1-1.2) % Neut # (Auto) (1.56-6.13) K/mm3 Lymph # (Auto) (1.18-3.74) K/mm3 [place] # (Auto) (0.24-0.36) K/mm3 Eos # (Auto) (0.04-0.36) K/mm3 Baso # (Auto) (0.01-0.08) K/mm3 Sodium (136-145) mEq/L Potassium (3.5-5.1) mEq/L Chloride (98-107) mEq/L Carbon Dioxide (21-32) mEq/L Anion Gap (5-15) BUN (7-18) mg/dL Creatinine (0.55-1.02) mg/dL Est Cr Clr Drug Dosing mL/min Estimated GFR (MDRD) (>60) mL/min BUN/Creatinine Ratio (14-18) Glucose (74-106) mg/dL Calcium (8.5-10.1) mg/dL Total Bilirubin (0.2-1.0) mg/dL AST (15-37) U/L ALT (14-59) U/L Alkaline Phosphatase (46-116) U/L Total Protein (6.4-8.2) g/dl Albumin (3.4-5.0) g/dl Globulin gm/dL Albumin/Globulin Ratio (1-2) Lipase (73-393) U/L HCG, Qual Negative (NEGATIVE) Urine Color (Yellow) Urine Appearance (Clear) Urine pH (5.0-8.0) Ur Specific [place] (1.005-1.030) Urine Protein (Negative) Urine Glucose (UA) (Negative) Urine Ketones (Negative) Urine Occult Blood (Negative) Urine Nitrite (Negative) Urine Bilirubin (Negative) Urine Urobilinogen (0.2-1.0) Ur Leukocyte Esterase (Negative) Urine RBC (0-5) /hpf Urine WBC (0-5) /hpf Ur Epithelial Cells (0-5) /hpf Urine Bacteria (FEW) /hpf Urine Mucus (FEW) /hpf Meds: Medications Generic Name Dose Route Start Last Admin Trade Name Freq PRN Reason Stop Dose Admin Sodium Chloride 10 ml 08/16/17 06:24 08/16/17 06:45 Saline Flush FLUSH 10 ml ASDIRECTED PRN Administration Keep Vein Open Discontinued Medications Generic Name Dose Route Start Last Admin Trade Name José Miguel PRN Reason Stop Dose Admin Hydromorphone HCl 0.5 mg 08/16/17 06:25 08/16/17 06:46 Dilaudid IVPUSH 08/16/17 06:26 0.5 mg ONETIME ONE Administration Sodium Chloride 1,000 mls @ 1,000 mls/hr 08/16/17 06:24 08/16/17 06:44 Normal Saline IV 08/16/17 07:23 1,000 mls/hr .BOLUS STA Administration Ondansetron HCl 4 mg 08/16/17 06:24 08/16/17 06:44 Zofran IVPUSH 08/16/17 06:25 4 mg ONETIME ONE Administration - Re-Assessments/Exams Free Text/Narrative Re-Assessment/Exam: 08/16/17 06:34 I ordered an IV NS 1L bolus, labs, UA, US of her gallbladder, dilaudid 0.5mg IV and zofran 4mg IV. Departure - Departure Disposition: Home, Self-Care 01 Clinical Impression: Gall bladder stones Abdominal pain Qualifiers: Abdominal location: upper abdomen, unspecified Qualified Code(s): R10.10 - Upper abdominal pain, unspecified - Discharge Information Referrals: Carmen Epperson MD [Primary Care Provider] - Forms: ED Department Discharge Additional Instructions: avoid fatty foods for now, you may take tylenol or ibuprofen if needed for any further discomfort. See Dr Ballard, [facility] next available appt. to discuss possible surgery. Return to ED as needed. <Ranyd Palmer - Last Filed: 08/16/17 09:39> Course - Re-Assessments/Exams Free Text/Narrative Re-Assessment/Exam: 08/16/17 09:38 Have assumed care from Dr. Martinez after change of shift. I agree with his history and exam as documented. Labs are back and other than white blood count mildly elevated chemistries all are excellent. She is resting very comfortably , her pain is gone. Ultrasound of the gallbladder does show several stones within the gallbladder, largest 1.1 cm. No gallbladder wall thickening or biliary duct dilatation seen. See radiology report for details. Discharge instructions as documented. Departure - Departure Time of Disposition: 09:36 Condition: Fair
--- NOTE | 2017-08-16 09:03 | US ---
Limited abdominal ultrasound: Multiple real-time images of the upper right abdomen were obtained. Comparison: No prior exam. Technologist's note: Suboptimal exam due to body habitus and difficulty holding breath Liver is echogenic likely due to fatty infiltration. Several gallstones are seen within the gallbladder with largest gallstone measuring about 1.1 cm. No gallbladder wall thickening or biliary duct dilatation is seen. Right kidney shows no hydronephrosis or discrete mass. Right kidney has a length of 11.7 cm. Pancreas is incompletely seen and obscured by bowel gas. Inferior vena cava is patent. Portal vein shows normal hepatopedal flow. Impression: 1. Several gallstones without gallbladder wall thickening or biliary duct dilatation. 2. Echogenic liver likely representing fatty infiltration. Diagnostic code #3
[2017-08-16 10:00] VITALS: BP 110/69
== END 2017-08-16 09:55 | disposition home or self-care (01) ==
LOC: JD.ED 06:03
DX: K80.20 Calculus of gallbladder without cholecystitis without obstruction (principal); E11.9 Type 2 diabetes mellitus without complications; E66.9 Obesity, unspecified; Z87.891 Personal history of nicotine dependence
CPT/HCPCS: 36415; 76705; 80053; 81001; 83690; 84703; 85025; 96361; 96374; 96375; 99284; J1170; J2405; J7040; J7050

== ENCOUNTER 2019-07-27 22:12 | Emergency (ER) | payer MEDICAID ==
[2019-07-27 22:27] VITALS: BP 134/109; PULSE 83
[2019-07-27] MEDS ORDERED: LORazepam 1 MG Tab PO ONE (22:45)
--- NOTE | 2019-07-27 22:52 | EDM.PDOCBH ---
ED HPI GENERAL MEDICAL PROBLEM - General Chief Complaint: Behavioral/Psych Stated Complaint: SOB/FEELS FAINT Time Seen by Provider: 07/27/19 22:23 Source of Information: Reports: Patient History Limitations: Reports: No Limitations - History of Present Illness INITIAL COMMENTS - FREE TEXT/NARRATIVE: Ms. Sheets is a very pleasant 39-year-old woman with a past medical history significant for suspected asthma and anxiety with panic attacks, that she treats with hydralazine on an as-needed basis. She states that she has panic attacks once or twice a week, and that the hydralazine usually works well for her. She now presents the ED stating that she and her boyfriend got into an argument around 18:00 tonight, then, around 21:00, she developed dyspnea, chest tightness, rapid palpitations, shakiness, tingling of her fingers and toes, and a generalized feeling of anxiety. Her symptoms are similar to her usual panic attacks, although more severe tonight than usual. She states that she took a hydralazine around 21:00, which has improved her symptoms, but not resolved them. When she was still feeling anxious more than an hour later, she decided it was time to come to the ED for evaluation. Here in the ED, the patient's initial BP is found to be slightly elevated at 134 /109, otherwise, she is hemodynamically stable, afebrile, saturating 98% on room air. The patient denies recent fever, chills, sore throat, ear pain, nasal or sinus congestion, cough, dyspnea, chest pain, palpitations, nausea, vomiting, constipation, diarrhea, abdominal pain, urinary symptoms, recent weight gain or weight loss, recent bloody bowel movements or black bowel movements, recent joint aches, headaches, or rashes. The patient's PCP is Dr. Maylin Lauren. - Related Data Allergies Allergy/AdvReac Type Severity Reaction Status Date / Time morphine AdvReac Severe Headache Verified 07/27/19 22:26 Home Meds: Home Meds Mometasone/Formoterol [Dulera 200 Mcg-5 Mcg Inhaler] 2 puff INH BID 07/27/19 [ History] hydrALAZINE HCl [Hydralazine HCl] 50 mg PO DAILY PRN 07/27/19 [History] Past Medical History HEENT History: Reports: Impaired Vision Respiratory History: Reports: Asthma (suspected, not tested) MEDICAL CENTER REPRESENTATIVE History: Reports: Other (See Below) (Ovarian cysts) Psychiatric History: Reports: Addiction (alcohol), Anxiety, Panic Attack Endocrine/Metabolic History: Reports: Obesity/BMI 30+, Other (See Below) ( Prediabetes) - Past Surgical History HEENT Surgical History: Reports: Other (See Below) (Right facial cyst excision as a child) GI Surgical History: Reports: Cholecystectomy (around 2014) Female Surgical History: Reports: D&C (x 1), Tubal Ligation Social & Family History - Family History Family Medical History: Noncontributory - Tobacco Use Smoking Status *Q: Former Smoker Years of Tobacco use: 16 Packs/Tins Daily: 0.5 Month/Year Tobacco Last Used: Quit Jun 2015 - Caffeine Use Caffeine Use: Reports: Tea - Alcohol Use Alcohol Use History: Yes Date/Time of Last Drink Comment: History of alcohol abuse Alcohol Use Frequency: Socially - Recreational Drug Use Recreational Drug Use: No - Living Situation & Occupation Living situation: Reports: Single, with Significant Other (Boyfriend), with Family (2 kids) Occupation: Unemployed ED ROS GENERAL - Review of Systems Review Of Systems: Comprehensive ROS is negative, except as noted in HPI. Musculoskeletal: Reports: Neck Pain (chronic), Back Pain (chronic) ED EXAM, BEHAVIORAL HEALTH - Physical Exam Exam: See Below Exam Limited By: No Limitations General Appearance: Alert, WD/WN, No Apparent Distress, Anxious Eye Exam: Bilateral Eye: EOMI, Normal Inspection Ears: Normal External Exam, Hearing Grossly Normal Nose: Normal Inspection Throat/Mouth: Normal Inspection, Normal Lips, Normal Voice, No Airway Compromise Head: Atraumatic, Normocephalic Neck: Normal Inspection, Full Range of Motion Respiratory/Chest: No Respiratory Distress, Lungs Clear, Normal Breath Sounds, No Accessory Muscle Use Cardiovascular: Normal Peripheral Pulses, No Edema, No Gallop, No JVD, No Murmur , No Rub, Tachycardia (regular) GI/Abdominal: Normal Bowel Sounds, Soft, Non-Tender, No Organomegaly, No Distention, No Abnormal Bruit, No Mass (Female) Exam: Deferred Rectal (Female) Exam: Deferred Back Exam: Normal Inspection, Full Range of Motion, NT Extremities: Normal Inspection, Normal Range of Motion, No Pedal Edema, Normal Capillary Refill Neurological: Alert, Normal Cognition, No Motor/Sensory Deficits, Oriented x 3 Psychiatric: Other (Anxious) Skin Exam: Warm, Dry, Intact, Normal color, No rash COURSE, BEHAVIORAL HEALTH COMP - Course Vital Signs: Last Vital Signs Temp 36.6 C 07/27/19 22:24 Pulse 83 07/27/19 22:24 Resp 14 07/27/19 22:24 BP 134/109 H 07/27/19 22:24 Pulse Ox 98 07/27/19 22:24 Orders, Labs, Meds: Medications Discontinued Medications Generic Name Dose Route Start Last Admin Trade Name José Miguel PRN Reason Stop Dose Admin Lorazepam 1 mg 07/27/19 22:45 07/27/19 22:58 Ativan PO 07/27/19 22:46 1 mg ONETIME ONE Administration Medical Clearance: 07/27/19 22:45 As above, the patient and I are in agreement that her symptoms of dyspnea, chest tightness, palpitations, shakiness, tingling of her fingers and toes, and generally feeling anxious is due to a panic attack. The patient has similar, if not as severe, symptoms once or twice a week. Neither the patient nor I feel the need for me to order needless tests. Instead, I will order 1 mg of oral Ativan to help calm the patient's nerves, then discharge her with the recommendation that she follow-up with her PCP to discuss long-term treatment options for anxiety. From my perspective, the patient should probably be on an SSRI. Departure - Departure Time of Disposition: 22:49 Disposition: Home, Self-Care 01 Condition: Good Clinical Impression: Panic attack - Discharge Information *PRESCRIPTION DRUG MONITORING PROGRAM REVIEWED*: Not Applicable *COPY OF PRESCRIPTION DRUG MONITORING REPORT IN PATIENT ISAC: Not Applicable Instructions: Panic Attack, [id number] Referrals: Maylin Lauren MD [Primary Care Provider] - Forms: ED Department Discharge Additional Instructions: You were seen in the emergency room after developing shortness of breath, chest tightness, rapid palpitations, shakiness, tingling of your fingers and toes, and generally feeling anxious, symptoms that you get once or twice a week due to a panic attack. You were treated with a single dose of the benzodiazepine Ativan, however, this is not an appropriate long-term treatment for anxiety. We recommend that you follow-up with your PCP, Dr. Maylin Lauren, to discuss long-term treatment options for anxiety, such as an SSRI. If any other problems, please do not hesitate to return to the ER. Sepsis Event Note - Evaluation Sepsis Screening Result: No Definite Risk - Focused Exam Vital Signs: Vital Signs Temp Pulse Resp BP Pulse Ox 07/27/19 22:24 36.6 C 83 14 134/109 H 98 Date Exam was Performed: 07/27/19 Time Exam was Performed: 23:04
== END 2019-07-27 23:00 | disposition home or self-care (01) ==
LOC: JD.ED 22:12
DX: F41.0 Panic disorder [episodic paroxysmal anxiety] (principal); J45.909 Unspecified asthma, uncomplicated; E66.9 Obesity, unspecified; Z68.42 Body mass index [BMI] 45.0-49.9, adult; Z87.891 Personal history of nicotine dependence; Z88.5 Allergy status to narcotic agent
CPT/HCPCS: 99283; A9270

== ENCOUNTER 2019-10-28 15:53 | Inpatient (IN) | payer MEDICAID ==
[2019-10-28] MEDS ORDERED: Ondansetron 4 MG/2 ML SDV IVPUSH ONE (16:23)
[2019-10-28] MEDS ORDERED: Acetaminophen 325 MG Tab PO ONE (16:23)
[2019-10-28] MEDS ORDERED: Dextrose 5%-0.9% NaCl 1,000 ML IV SCH (16:30)
--- NOTE | 2019-10-28 16:42 | EDM.PDOC ---
ED HPI GENERAL MEDICAL PROBLEM - General Chief Complaint: Respiratory Problem Stated Complaint: FEVER SOB AND COUGH Time Seen by Provider: 10/28/19 16:22 Source of Information: Reports: Patient History Limitations: Reports: No Limitations - History of Present Illness INITIAL COMMENTS - FREE TEXT/NARRATIVE: 39-year-old female presents to the ED with a 3-day history of high fever and associated chills/rigors she will cough to the point of emesis at times. Has completely lost her appetite for the most part. She is a known asthmatic and not getting much relief with her albuterol metered-dose inhaler. She was camping for the weekend and had to come home early due to feeling so ill. She denies any diarrhea. To her knowledge she is not been exposed anybody with COVID-19. She was tested for this virus 3 days ago however. He has not heard the results from public [place]. She has 2 children at home and her . Urine production is mostly clear and white. She denies any hemoptysis reports her asthma for the most part has been very well controlled since switching to Dulera inhaler on a daily basis. Onset: Sudden Onset Date: 10/26/19 Duration: Day(s):, Getting Worse Location: Reports: Generalized (Neurolyse myalgia headache paroxysmal minimally productive cough fever and chills) Quality: Reports: Ache, Other (Generalized myalgia. Fever and chills with paroxysmal cough) Severity: Moderate Improves with: Reports: None, Medication (Perhaps albuterol metered-dose inhaler helps a little bit.) Worsens with: Reports: Other (He is worse when she is lying flat.) Associated Symptoms: Reports: Cough, cough w sputum (Paroxysmal cough), Fever/Chills (X3 days), Headaches (.), Loss of Appetite, Malaise, Nausea/Vomiting, Shortness of Breath, Weakness (Vomiting has occurred post tussive.). 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 today.) - Related Data Allergies Allergy/AdvReac Type Severity Reaction Status Date / Time hydromorphone [From Dilaudid] Allergy Severe Change Verified 10/28/19 16:08 Mental Status morphine AdvReac Severe Headache Verified 08/23/20 16:08 Home Meds: Home Meds Mometasone/Formoterol [Dulera 200 Mcg-5 Mcg Inhaler] 2 puff INH BID 07/27/19 [History] hydrALAZINE HCl [Hydralazine HCl] 50 mg PO DAILY PRN 07/27/19 [History] Past Medical History - Past Health History Medical/Surgical History: Denies Medical/Surgical History HEENT History: Reports: Impaired Vision Other HEENT History: ringing of ears Cardiovascular History: Reports: Other (See Below) Other Cardiovascular History: chest pains with anxiety attacks Respiratory History: Reports: Asthma Gastrointestinal History: Reports: Helicobacter Pylori 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 (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 Below) Other ADMINISTRATIVE VOLUNTEER History: ovarian cyst, hydrosalpinx, menorrhagia, pelvic pain and pressure Musculoskeletal History: Reports: Back Pain, Chronic, Neck Pain, Chronic Psychiatric History: Reports: Addiction, Anxiety, Panic Attack Other Psychiatric History: patient has hx of alcohol abuse Endocrine/Metabolic History: Reports: Obesity/BMI 30+, Other (See Below) - Past Surgical History HEENT Surgical History: Reports: Other (See Below) GI Surgical History: Reports: Cholecystectomy Female Surgical History: Reports: D&C, Tubal Ligation, Other (See Below) Other Female Surgeries/Procedures: tubes removed Social & Family History - Family History Family Medical History: Noncontributory - Tobacco Use Smoking Status *Q: Never Smoker Second Hand Smoke Exposure: No - Caffeine Use Caffeine Use: Reports: None - Recreational Drug Use Recreational Drug Use: No - Living Situation & Occupation Living situation: Reports: Single, with Significant Other (Boyfriend), with Family (2 kids) Occupation: Unemployed ED ROS GENERAL - Review of Systems Review Of Systems: See Below Constitutional: Reports: Fever, Chills, Malaise, Weakness, Fatigue, Decreased Appetite HEENT: Reports: Ear Pain (Right hemifacial pain that radiates to her right ear.), Throat Pain (Gradually worsening). Denies: Hearing Loss, Nose Pain, Rhinitis, Sinus Problem, Throat Swelling Respiratory: Reports: Shortness of Breath ( throat pain with difficulty swallowing), Wheezing, Cough, Sputum (There are paroxysmal cough or sputum). Denies: Pleuritic Chest Pain Cardiovascular: Reports: Chest Pain (Total chest pain from coughing so much.), Dyspnea on Exertion, Lightheadedness (Coughing at times nearly passes out). Denies: Blood Pressure Problem, Claudication, Orthopnea, Palpitations Endocrine: Reports: Fatigue GI/Abdominal: Reports: Decreased Appetite, Vomiting (Tussive vomiting.). Denies: Constipation, Diarrhea, Nausea : Reports: No Symptoms Musculoskeletal: Reports: Muscle Pain Skin: Reports: No Symptoms (Generalized myalgia) Neurological: Reports: Headache, Weakness. Denies: Confusion, Dizziness, Trouble Speaking, Difficulty Walking, Change in Speech, Gait Disturbance Psychiatric: Reports: No Symptoms Hematologic/Lymphatic: Reports: No Symptoms Immunologic: Reports: No Symptoms ED EXAM, GENERAL - Physical Exam Exam: See Below Exam Limited By: No Limitations General Appearance: Alert, WD/WN, Moderate Distress (She appears ill.), Other (She was 37.6 and she does feel quite warm to palpation actually warmer than this temperature would suggest. Heart rate was 108 sinus tachycardia in the monitor respiratory 24 with O2 sats of 92 to 96%. BP 132/99 initially.) Eye Exam: Bilateral Eye: Normal Inspection, PERRL Ears: Normal TMs, Other (TMs are mildly dull on inspection but it more to do with her fever. There is no active infection or serous otitis media.) Throat/Mouth: Normal Lips ( posteriorly tonsils are normal.), Normal Teeth, Normal Gums, Other (Mild diffuse pharyngitis) Head: Atraumatic, Normocephalic, Other Neck: Normal Inspection (No signs of head or facial trauma or swelling.), Supple, Non-Tender, Full Range of Motion. No: Carotid Bruit, Lymphadenopathy (L), Lymphadenopathy (R), Thyromegaly Respiratory/Chest: Lungs Clear, No Accessory Muscle Use, Respiratory Distress (Tachypnea at rest.), Decreased Breath Sounds (Breath sounds are slightly diminished to both lung bases lower 20%.). No: Crackles, Rales, Rhonchi, Wheezing Cardiovascular: Normal Peripheral Pulses (Sinus tachycardia 112/min on my assessment), Regular Rate, Rhythm, No Edema, No Gallop, No Murmur, No Rub, Tachycardia Peripheral Pulses: 3+: Carotid (L), Carotid (R), Posterior Tibial (L), Posterior Tibial (R), Dorsalis Pedis (L), Dorsalis Pedis (R) GI/Abdominal: Normal Bowel Sounds, Soft, Non-Tender, No Organomegaly, No Mass, Pelvis Stable, Distended, Other (Christian distended intubated to percussion upper abdomen combined with mild aerophagia. 100 obesity.) Back Exam: Normal Inspection, Full Range of Motion. No: CVA Tenderness (L), CVA Tenderness (R) Extremities: Normal Inspection, Normal Range of Motion, Non-Tender, No Pedal Edema Neurological: Alert, Oriented, CN II-XII Intact, Normal Cognition Psychiatric: Normal Affect, Normal Mood Skin Exam: Warm, Dry, Intact, Normal Color, No Rash EKG INTERPRETATION EKG Date: 10/28/19 Time: 19:23 Rhythm: NSR Rate (Beats/Min): 86 [place]: RAD-Right [place] Deviation (112 degrees) P-Wave: Enlarged (Left atrial hypertrophy small biatrial hypertrophy) QRS: Other (Decreased voltage in the precordial leads with poor R wave progression throughout.) ST-T: Other (T wave flattening in aVF and V3 to V6 nonspecific finding) QT: Prolonged (Moderately prolonged) EKG Interpretation Comments: Abnormal ECG Course - Vital Signs Last Recorded V/S: Last Vital Signs Temp 38.7 C H 10/28/19 17:04 Pulse 108 H 10/28/19 16:06 Resp 24 H 10/28/19 16:06 BP 132/99 H 10/28/19 16:06 Pulse Ox 93 L 10/28/19 16:06 - Orders/Labs/Meds Orders: Active Orders 24 hr Category Date Time Status RT Aerosol Therapy [RC] ASDIRECTED Care 10/28/19 17:44 Active CULTURE BLOOD [BC] Stat Lab 10/28/19 16:45 Received CULTURE BLOOD [BC] Stat Lab 10/28/19 17:00 Received URINALYSIS W/MICROSCOPIC [UA W/MICROSCOPIC] [URIN] Stat Lab 10/28/19 16:24 Ordered Albuterol/Ipratropium [DuoNeb 3.0-0.5 MG/3 ML] Med 10/28/19 17:43 Active 3 ml NEB Q4H PRN Dextrose 5%-0.9% NaCl [Dextrose 5%-Normal Saline] 1,000 Med 10/28/19 16:30 A ctive ml IV ASDIRECTED Ketorolac [Toradol] Med 10/28/19 16:30 Active 30 mg IVPUSH ONETIME Blood Culture x2 Reflex Set [OM.PC] Stat Oth 10/28/19 16:24 Ordered Medication Orders Albuterol/Ipratropium (Duoneb 3.0-0.5 Mg/3 Ml) 3 ml NEB Q4H PRN PRN Reason: Shortness Of Breath/wheezing Last Admin: 10/28/19 18:20 Dose: 3 ml Documented by: ERIN Dextrose/Sodium Chloride (Dextrose 5%-Normal Saline) 1,000 mls @ 999 mls/hr IV ASDIRECTED ANA Last Admin: 10/28/19 17:16 Dose: 999 mls/hr Documented by: MAGDALENA Ketorolac Tromethamine (Toradol) 30 mg IVPUSH ONETIME ANA Last Admin: 10/28/19 18:23 Dose: 30 mg Documented by: Admin: 10/28/19 17:15 Dose: 30 mg Documented by: MAGDALENA Labs: Laboratory Tests 10/28/19 10/28/19 10/28/19 Range/Units 16:45 16:45 16:45 WBC 4.98 (3.98-10.04) K/mm3 RBC 4.13 (3.98-5.22) M/mm3 Hgb 12.1 (11.2-15.7) gm/dl Hct 36.9 (34.1-44.9) % MCV 89.3 D (79.4-94.8) fl MCH 29.3 (25.6-32.2) pg MCHC 32.8 (32.2-35.5) g/dl RDW Std Deviation 48.0 H (36.4-46.3) fL Plt Count 158 L D (182-369) K/mm3 MPV 9.7 (9.4-12.3) fl Neutrophils % (Manual) 78 H (40-60) % Band Neutrophils % 2 (0-10) % Lymphocytes % (Manual) 16 L (20-40) % Atypical Lymphs % 0 % Monocytes % (Manual) 2 (2-10) % Eosinophils % (Manual) 1 (0.7-5.8) % Basophils % (Manual) 1 (0.1-1.2) Platelet Estimate Adequate Anisocytosis 1+ slight RBC Morph Comment Abnormal D-Dimer, Quantitative 0.71 H (0.19-0.50) mg/L Sodium 137 (136-145) mEq/L Potassium 3.2 L (3.5-5.1) mEq/L Chloride 101 (98-107) mEq/L Carbon Dioxide 27 (21-32) mEq/L Anion Gap 12.2 (5-15) BUN 7 (7-18) mg/dL Creatinine 1.0 (0.55-1.02) mg/dL Est Cr Clr Drug Dosing TNP Estimated GFR (MDRD) > 60 (>60) mL/min BUN/Creatinine Ratio 7.0 L (14-18) Glucose 115 H (74-106) mg/dL Calcium 7.8 L (8.5-10.1) mg/dL Magnesium 1.6 L (1.8-2.4) mg/dl Ferritin (8-252) ng/ml Total Bilirubin 0.2 (0.2-1.0) mg/dL AST 86 H (15-37) U/L ALT 105 H (14-59) U/L Alkaline Phosphatase 96 (46-116) U/L Lactate Dehydrogenase (81-234) U/L Troponin I (0.00-0.056) ng/mL C-Reactive Protein 17.1 H* (<1.0) mg/dL Total Protein 6.9 (6.4-8.2) g/dl Albumin 3.0 L (3.4-5.0) g/dl Globulin 3.9 gm/dL Albumin/Globulin Ratio 0.8 L (1-2) 10/28/19 10/28/19 Range/Units 16:45 16:45 WBC (3.98-10.04) K/mm3 RBC (3.98-5.22) M/mm3 Hgb (11.2-15.7) gm/dl Hct (34.1-44.9) % MCV (79.4-94.8) fl MCH (25.6-32.2) pg MCHC (32.2-35.5) g/dl RDW Std Deviation (36.4-46.3) fL Plt Count (182-369) K/mm3 MPV (9.4-12.3) fl Neutrophils % (Manual) (40-60) % Band Neutrophils % (0-10) % Lymphocytes % (Manual) (20-40) % Atypical Lymphs % % Monocytes % (Manual) (2-10) % Eosinophils % (Manual) (0.7-5.8) % Basophils % (Manual) (0.1-1.2) Platelet Estimate Anisocytosis RBC Morph Comment D-Dimer, Quantitative (0.19-0.50) mg/L Sodium (136-145) mEq/L Potassium (3.5-5.1) mEq/L Chloride (98-107) mEq/L Carbon Dioxide (21-32) mEq/L Anion Gap (5-15) BUN (7-18) mg/dL Creatinine (0.55-1.02) mg/dL Est Cr Clr Drug Dosing Estimated GFR (MDRD) (>60) mL/min BUN/Creatinine Ratio (14-18) Glucose (74-106) mg/dL Calcium (8.5-10.1) mg/dL Magnesium (1.8-2.4) mg/dl Ferritin 261 H (8-252) ng/ml Total Bilirubin (0.2-1.0) mg/dL AST (15-37) U/L ALT (14-59) U/L Alkaline Phosphatase (46-116) U/L Lactate Dehydrogenase 355 H (81-234) U/L Troponin I < 0.017 (0.00-0.056) ng/mL C-Reactive Protein (<1.0) mg/dL Total Protein (6.4-8.2) g/dl Albumin (3.4-5.0) g/dl Globulin gm/dL Albumin/Globulin Ratio (1-2) Meds: Medications Generic Name Dose Route Start Last Admin Trade Name Freq PRN Reason Stop Dose Admin Albuterol/Ipratropium 3 ml 10/28/19 17:43 10/28/19 18:20 Duoneb 3.0-0.5 Mg/3 Ml NEB 3 ml Q4H PRN Administration Shortness Of Breath/wheezing Dextrose/Sodium Chloride 1,000 mls @ 999 mls/hr 10/28/19 16:30 10/28/19 17:16 Dextrose 5%-Normal Saline IV 999 mls/hr ASDIRECTED ANA Administration Ketorolac Tromethamine 30 mg 10/28/19 16:30 10/28/19 18:23 Toradol IVPUSH 30 mg ONETIME ANA Administration Discontinued Medications Generic Name Dose Route Start Last Admin Trade Name José Miguel PRN Reason Stop Dose Admin Acetaminophen 975 mg 10/28/19 16:23 10/28/19 17:04 Tylenol PO 10/28/19 16:24 975 mg ONETIME ONE Administration Ondansetron HCl 4 mg 10/28/19 16:23 10/28/19 17:15 Zofran IVPUSH 10/28/19 16:24 4 mg ONETIME ONE Administration - Radiology Interpretation Free Text/Narrative:: 39-year-old female presents to the ED with a 3-day history of high fevers with associated chills/rigors. Associated paroxysmal cough with clear sputum. Feels air hungry. She is a known asthmatic usually well controlled with current medications. She has been using excessive amount of albuterol without much relief. Temperature registered at 103 at home today. Vomiting occurs intermittently from coughing so hard. Associated bad headache worsened by cough. Generalized myalgia. History suggests possible COVID-19 illness. Lungs are clear on initial evaluation. Plan chest x-ray to be done to rule out pneumonia. Routine labs including blood cultures x2. COVID-19 screen and rapid strep to be done. Plan she will have an IV started using D5 normal saline at open since she is not really kept much down for the last 36 hours. She will be given Zofran 4 mg IV to alleviate nausea. Toradol 30 mg IV for headache and body ache relief since she has major side effect problems from narcotics. Will be given 9 7 5 mg of Tylenol 20 minutes after the Zofran has been infused to help with fever. - Re-Assessments/Exams Free Text/Narrative Re-Assessment/Exam: 10/28/19 17:17: Chest x-ray done portably reveals heart size and mediastinum to be normal. Right-sided perihilar markings are increased possibly due to right- sided bronchitis versus early lower lobar pneumonia. Left lung is clear. Bony structures are grossly intact. 10/28/19 17:30: L the patient was in the examining room public health called her and indicated that her COVID-19 test done 3 days ago is positive. Her 's test came back negative. Her children are not assessed. Therefore I canceled her COVID-19 study here in the hospital. I will order COVID-19 labs at this point in time. 10/28/19 18:23 Lab test revealed a normal white count at 4.98. It reveals 78% neutrophils and 2% bands cells. Hemoglobin is 12.1 with hematocrit of 36.9. Platelet count is low at 158,000. D-dimer mildly elevated at 0.71. Sodium 137 with potassium slightly low at 3.2. This goes along with not being able to eat much. Chloride is 101 with a bicarb of 27 anion gap is 12.2. BUN is 7 with a creatinine of 1.0. Estimated GFR is greater than 60. Glucose is 115 calcium is low at 7.8 magnesium is low at 1.6. Serum ferritin is elevated at 261. Total bilirubin 0.2 AST elevated at 86 and ALT is elevated at 105. Alk phosphatase is normal at 96. LDH is elevated at 355. Troponin I is less than 0.017 C- reactive protein is 17.1. Total protein is 6.9 with an albumin fraction of 3.0. Dr. Chan is aware and will admit the patient to [facility] surgery for observation status due to developing pneumonia right lower lobe and a history of asthma and obesity she has a chance of deteriorating because of COVID-19 infection. He was given a DuoNeb prior to discharge from the ED. 10/28/19 19:33 patient will have a second liter of fluids started with D5 LR with 40 mg of KCl per liter to run at 125 mils per hour. Will repeat 9 7 5 mg of Tylenol p.o. for fever and body ache relief. Departure - Departure Time of Disposition: 19:34 Disposition: Refer to Observation Condition: Fair Clinical Impression: Hypoxia, Lab test positive for detection of COVID-19 virus, Vomiting, Hypokalemia, Hypomagnesemia Asthma Qualifiers: Asthma severity: moderate Asthma persistence: persistent Asthma complication type: uncomplicated Qualified Code(s): J45.40 - Moderate persistent asthma, uncomplicated Pneumonia Qualifiers: Laterality: right Lung location: lower lobe of lung - Discharge Information *PRESCRIPTION DRUG MONITORING PROGRAM REVIEWED*: Not Applicable *COPY OF PRESCRIPTION DRUG MONITORING REPORT IN PATIENT ISAC: Not Applicable Instructions: Hypoxemia, Hypomagnesemia, Hypokalemia, Asthma, Adult, COVID-19: How to Protect Yourself and Others - CDC, COVID-19 Referrals: Maylin Lauren MD [Primary Care Provider] - Forms: ED Department Discharge Sepsis Event Note (ED) - Evaluation Sepsis Screening Result: No Definite Risk - Focused Exam Vital Signs: Vital Signs Temp Temp Pulse Resp BP Pulse Ox 10/28/19 17:04 38.7 C H 10/28/19 16:06 37.6 C 108 H 24 H 132/99 H 93 L - My Orders Last 24 Hours: My Active Orders 10/28/19 16:24 URINALYSIS W/MICROSCOPIC [UA W/MICROSCOPIC] [URIN] Stat Blood Culture x2 Reflex Set [OM.PC] Stat 10/28/19 16:30 Dextrose 5%-0.9% NaCl [Dextrose 5%-Normal Saline] 1,000 ml IV ASDIRECTED Ketorolac [Toradol] 30 mg IVPUSH ONETIME 10/28/19 16:45 CULTURE BLOOD [BC] Stat 10/28/19 17:00 CULTURE BLOOD [BC] Stat 10/28/19 17:43 Albuterol/Ipratropium [DuoNeb 3.0-0.5 MG/3 ML] 3 ml NEB Q4H PRN 10/28/19 17:44 RT Aerosol Therapy [RC] ASDIRECTED - Assessment/Plan Last 24 Hours: My Active Orders 10/28/19 16:24 URINALYSIS W/MICROSCOPIC [UA W/MICROSCOPIC] [URIN] Stat Blood Culture x2 Reflex Set [OM.PC] Stat 10/28/19 16:30 Dextrose 5%-0.9% NaCl [Dextrose 5%-Normal Saline] 1,000 ml IV ASDIRECTED Ketorolac [Toradol] 30 mg IVPUSH ONETIME 10/28/19 16:45 CULTURE BLOOD [BC] Stat 10/28/19 17:00 CULTURE BLOOD [BC] Stat 10/28/19 17:43 Albuterol/Ipratropium [DuoNeb 3.0-0.5 MG/3 ML] 3 ml NEB Q4H PRN 10/28/19 17:44 RT Aerosol Therapy [RC] ASDIRECTED
[2019-10-28] MEDS: Ketorolac 30 MG/ML SDV IVPUSH SCH ×2 (17:15→18:23)
--- NOTE | 2019-10-28 17:20 | CR ---
Chest: Portable supine view of the chest was obtained. Comparison: Previous chest x-ray of 08/15/16. Heart size and mediastinum are normal. Right-sided perihilar markings are increased possibly due to right-sided bronchitis. Difficult to exclude right lower lobe pneumonia. Left lung is clear. Bony structures are grossly intact. Impression: 1. Probable right-sided bronchitis and difficult to exclude early right lower lobe pneumonia. Diagnostic code #3 This report was dictated in MDT
[2019-10-28] MEDS ORDERED: Albuterol/Ipratropium 3.0-0.5 MG/3 ML Neb Soln NEB PRN (17:43)
[2019-10-28] MEDS ORDERED: Potassium Chloride 40 MEQ in Dextrose 5%-Lactated Ringers 1,000 ML IV SCH (19:45)
[2019-10-28] MEDS ORDERED: Potassium Chloride 20 MEQ Tab.ER PO ONE (19:45)
[2019-10-28] MEDS ORDERED: Magnesium Sulfate/Water 4 GM in Premix Bag 1 BAG IV ONE (20:12)
[2019-10-28] MEDS: Acetaminophen 325 MG Tab PO PRN (20:50)
[2019-10-28] MEDS ORDERED: Ondansetron 4 MG/2 ML SDV IV PRN (22:47)
--- NOTE | 2019-10-28 22:57 | PCM.HP.2 ---
H&P History of Present Illness - General Date of Service: 10/28/19 Admit Problem/Dx: Admission Diagnosis/Problem Admission Diagnosis/Problem Pneumonia - History of Present Illness Initial Comments - Free Text/Narative: 39-year-old female presents emergency department after 3 days of fever, chills, and cough. She states that her temperature was 103 at home. She complains of a headache. She states that she has been coughing so hard that she vomits. She has decreased in appetite. She was camping over the weekend and went home because she was feeling ill. Patient was tested for the coronavirus 3 days prio r to admission and while she was in the emergency department she had a phone call from the health department failure she was positive for COVID-19. Patient has a history of asthma and is on Dulera for maintenance. Patient's oxygen saturations were in the low 90s on room air in the emergency department. She had a temperature of 101.7. Chest x-ray showed Right sided perihilar markings likely due to bronchitis but difficult to exclude right lower lobe pneumonia. Initial labs:WBC 5000, hemoglobin 12.1, platelet count 158, d-dimer 0.71, C- reactive protein 17.1, troponin I less than 0.017, LDH 355, ferritin 261, magnesium 1.6, potassium 3.2, BUN 7, creatinine 1.0 Patient was admitted to the floor for observation because of her mildly reduced oxygen saturations and history of asthma. - Related Data Allergies/Adverse Reactions: Allergies Allergy/AdvReac Type Severity Reaction Status Date / Time hydromorphone [From Dilaudid] Allergy Severe Change Verified 10/28/19 22:04 Mental Status morphine AdvReac Severe Headache Verified 10/28/19 22:04 Home Medications: Home Meds Mometasone/Formoterol [Dulera 200 Mcg-5 Mcg Inhaler] 2 puff INH BID 07/27/19 [History] hydrALAZINE HCl [Hydralazine HCl] 50 mg PO DAILY PRN 07/27/19 [History] Past Medical History - Past Health History Medical/Surgical History: Denies Medical/Surgical History HEENT History: Reports: Impaired Vision Other HEENT History: ringing of ears Cardiovascular History: Reports: Other (See Below) Other Cardiovascular History: chest pains with anxiety attacks Respiratory History: Reports: Asthma Gastrointestinal History: Reports: Helicobacter Pylori [employer] History: Reports: Other (See Below) Other OB/BYN History: ovarian cyst, hydrosalpinx, menorrhagia, pelvic pain and pressure Musculoskeletal History: Reports: Back Pain, Chronic, Neck Pain, Chronic Psychiatric History: Reports: Addiction, Anxiety, Panic Attack Other Psychiatric History: patient has hx of alcohol abuse Endocrine/Metabolic History: Reports: Obesity/BMI 30+, Other (See Below) - Infectious Disease History Infectious Disease History: Reports: Novel Coronavirus - Past Surgical History HEENT Surgical History: Reports: Other (See Below) GI Surgical History: Reports: Cholecystectomy Female Surgical History: Reports: D&C, Tubal Ligation, Other (See Below) Other Female Surgeries/Procedures: tubes removed Social & Family History - Family History Family Medical History: Noncontributory - Tobacco Use Smoking Status *Q: Never Smoker Second Hand Smoke Exposure: No - Caffeine Use Caffeine Use: Reports: None - Recreational Drug Use Recreational Drug Use: No - Living Situation & Occupation Living situation: Reports: Single, with Significant Other (Boyfriend), with Family (2 kids) Occupation: Unemployed H&P Review of Systems - Review of Systems: Review Of Systems: Comprehensive ROS is negative, except as noted in HPI. Exam - Exam Exam: See Below - Vital Signs Vital Signs: Last Vital Signs Temp 96.5 F L 10/28/19 20:32 Pulse 108 H 10/28/19 16:06 Resp 19 10/28/19 20:32 BP 124/86 10/28/19 20:32 Pulse Ox 92 L 10/28/19 20:32 Weight: 143.471 kg - Exam Quality Assessment: No: Supplemental Oxygen General: Alert, Oriented, 4 HEENT: Conjunctiva Clear, EOMI, Hearing Intact, Mucosa Moist & [place] Neck: Supple, Trachea Midline, 2 Lungs: Clear to Auscultation, Normal Respiratory Effort Cardiovascular: Regular Rate, Regular Rhythm GI/Abdominal Exam: Normal Bowel Sounds, Soft, Non-Tender, No Organomegaly, No Distention, No Abnormal Bruit Back Exam: Normal Inspection Extremities: Normal Inspection, Normal Range of Motion, Non-Tender, No Pedal Edema, Normal Capillary Refill Skin: Warm, Dry, Intact Neurological: Cranial Nerves Intact Neuro Extensive - Mental Status: Alert, Oriented x3, Normal Mood/Affect, Normal Cognition, Memory Intact Neuro Extensive - Motor, Sensory, Reflexes: CN II-XII Intact, Normal Gait Psychiatric: Alert, Normal Affect, Normal Mood - Patient Data Lab Results Last 24 hrs: Laboratory Results - last 24 hr 10/28/19 10/28/19 10/28/19 Range/Units 16:45 16:45 16:45 WBC 4.98 (3.98-10.04) K/mm3 RBC 4.13 (3.98-5.22) M/mm3 Hgb 12.1 (11.2-15.7) gm/dl Hct 36.9 (34.1-44.9) % MCV 89.3 D (79.4-94.8) fl MCH 29.3 (25.6-32.2) pg MCHC 32.8 (32.2-35.5) g/dl RDW Std Deviation 48.0 H (36.4-46.3) fL Plt Count 158 L D (182-369) K/mm3 MPV 9.7 (9.4-12.3) fl Neutrophils % (Manual) 78 H (40-60) % Band Neutrophils % 2 (0-10) % Lymphocytes % (Manual) 16 L (20-40) % Atypical Lymphs % 0 % Monocytes % (Manual) 2 (2-10) % Eosinophils % (Manual) 1 (0.7-5.8) % Basophils % (Manual) 1 (0.1-1.2) Platelet Estimate Adequate Anisocytosis 1+ slight RBC Morph Comment Abnormal D-Dimer, Quantitative 0.71 H (0.19-0.50) mg/L Sodium 137 (136-145) mEq/L Potassium 3.2 L (3.5-5.1) mEq/L Chloride 101 (98-107) mEq/L Carbon Dioxide 27 (21-32) mEq/L Anion Gap 12.2 (5-15) BUN 7 (7-18) mg/dL Creatinine 1.0 (0.55-1.02) mg/dL Est Cr Clr Drug Dosing TNP Estimated GFR (MDRD) > 60 (>60) mL/min BUN/Creatinine Ratio 7.0 L (14-18) Glucose 115 H (74-106) mg/dL Calcium 7.8 L (8.5-10.1) mg/dL Magnesium 1.6 L (1.8-2.4) mg/dl Ferritin (8-252) ng/ml Total Bilirubin 0.2 (0.2-1.0) mg/dL AST 86 H (15-37) U/L ALT 105 H (14-59) U/L Alkaline Phosphatase 96 (46-116) U/L Lactate Dehydrogenase (81-234) U/L Troponin I (0.00-0.056) ng/mL C-Reactive Protein 17.1 H* (<1.0) mg/dL Total Protein 6.9 (6.4-8.2) g/dl Albumin 3.0 L (3.4-5.0) g/dl Globulin 3.9 gm/dL Albumin/Globulin Ratio 0.8 L (1-2) 10/28/19 10/28/19 Range/Units 16:45 16:45 WBC (3.98-10.04) K/mm3 RBC (3.98-5.22) M/mm3 Hgb (11.2-15.7) gm/dl Hct (34.1-44.9) % MCV (79.4-94.8) fl MCH (25.6-32.2) pg MCHC (32.2-35.5) g/dl RDW Std Deviation (36.4-46.3) fL Plt Count (182-369) K/mm3 MPV (9.4-12.3) fl Neutrophils % (Manual) (40-60) % Band Neutrophils % (0-10) % Lymphocytes % (Manual) (20-40) % Atypical Lymphs % % Monocytes % (Manual) (2-10) % Eosinophils % (Manual) (0.7-5.8) % Basophils % (Manual) (0.1-1.2) Platelet Estimate Anisocytosis RBC Morph Comment D-Dimer, Quantitative (0.19-0.50) mg/L Sodium (136-145) mEq/L Potassium (3.5-5.1) mEq/L Chloride (98-107) mEq/L Carbon Dioxide (21-32) mEq/L Anion Gap (5-15) BUN (7-18) mg/dL Creatinine (0.55-1.02) mg/dL Est Cr Clr Drug Dosing Estimated GFR (MDRD) (>60) mL/min BUN/Creatinine Ratio (14-18) Glucose (74-106) mg/dL Calcium (8.5-10.1) mg/dL Magnesium (1.8-2.4) mg/dl Ferritin 261 H (8-252) ng/ml Total Bilirubin (0.2-1.0) mg/dL AST (15-37) U/L ALT (14-59) U/L Alkaline Phosphatase (46-116) U/L Lactate Dehydrogenase 355 H (81-234) U/L Troponin I < 0.017 (0.00-0.056) ng/mL C-Reactive Protein (<1.0) mg/dL Total Protein (6.4-8.2) g/dl Albumin (3.4-5.0) g/dl Globulin gm/dL Albumin/Globulin Ratio (1-2) Result Diagrams: 10/29/19 05:34 10/29/19 05:34 Sepsis Event Note - Evaluation Sepsis Screening Result: No Definite Risk - Focused Exam Vital Signs: Vital Signs Temp Temp Pulse Resp BP Pulse Ox 10/28/19 20:32 96.5 F L 19 124/86 92 L 10/28/19 17:04 101.6 F H 10/28/19 16:06 99.7 F 108 H 24 H 132/99 H 93 L - Problem List (1) Asthma SNOMED Code(s): 213866091 ICD Code: J45.909 - UNSPECIFIED ASTHMA, UNCOMPLICATED Status: Acute Current Visit: Yes Qualifiers: Asthma severity: moderate Asthma persistence: persistent Asthma complication type: uncomplicated Qualified Code(s): J45.40 - Moderate persiste nt asthma, uncomplicated (2) Hypokalemia SNOMED Code(s): 23166340 ICD Code: E87.6 - HYPOKALEMIA Status: Acute Current Visit: Yes (3) Hypomagnesemia SNOMED Code(s): 783349025 ICD Code: E83.42 - HYPOMAGNESEMIA Status: Acute Current Visit: Yes (4) Hypoxia SNOMED Code(s): 285363251 ICD Code: R09.02 - HYPOXEMIA Status: Acute Current Visit: Yes (5) Lab test positive for detection of COVID-19 virus SNOMED Code(s): 196299139, 917792311 ICD Code: U07.1 - COVID-19 Status: Acute Current Visit: Yes (6) Pneumonia SNOMED Code(s): 826381722 ICD Code: J18.9 - PNEUMONIA, UNSPECIFIED ORGANISM Status: Acute Current Visit: Yes Qualifiers: Laterality: right Lung location: lower lobe of lung Problem List Initiated/Reviewed/Updated: Yes Orders Last 24hrs: Active Orders 24 hr Category Date Time Status Patient Status [ADT] Routine ADT 10/28/19 19:10 Active Oxygen Therapy [RC] PRN Care 10/28/19 22:48 Active RT Aerosol Therapy [RC] ASDIRECTED Care 10/28/19 17:44 Active RT Post Treatment Assessment [RC] Click to Edit Care 10/28/19 22:16 Active RT Pre-Treatment Assessment [RC] Click to Edit Care 10/28/19 22:16 Active Up ad Monse [RC] ASDIRECTED Care 10/28/19 22:47 Active VTE/DVT Education [RC] PER UNIT ROUTINE Care 10/28/19 22:48 Active Vital Signs [RC] ASDIRECTED Care 10/28/19 22:47 Active Regular Diet [DIET] Diet 10/29/19 Breakfast Active C-REACTIVE PROTEIN [CHEM] AM Lab 10/29/19 05:11 Ordered C-REACTIVE PROTEIN [CHEM] AM Lab 10/30/19 05:11 Ordered C-REACTIVE PROTEIN [CHEM] AM Lab 10/31/19 05:11 Ordered C-REACTIVE PROTEIN [CHEM] AM Lab 11/01/19 05:11 Ordered C-REACTIVE PROTEIN [CHEM] AM Lab 11/02/19 05:11 Ordered CBC WITH AUTO DIFF [HEME] AM Lab 10/29/19 05:11 Ordered CBC WITH AUTO DIFF [HEME] AM Lab 10/30/19 05:11 Ordered CBC WITH AUTO DIFF [HEME] AM Lab 10/31/19 05:11 Ordered CBC WITH AUTO DIFF [HEME] AM Lab 11/01/19 05:11 Ordered CBC WITH AUTO DIFF [HEME] AM Lab 11/02/19 05:11 Ordered COMPREHENSIVE METABOLIC PN,CMP [CHEM] AM Lab 10/29/19 05:11 Ordered COMPREHENSIVE METABOLIC PN,CMP [CHEM] AM Lab 10/30/19 05:11 Ordered COMPREHENSIVE METABOLIC PN,CMP [CHEM] AM Lab 10/31/19 05:11 Ordered COMPREHENSIVE METABOLIC PN,CMP [CHEM] AM Lab 11/01/19 05:11 Ordered COMPREHENSIVE METABOLIC PN,CMP [CHEM] AM Lab 11/02/19 05:11 Ordered CULTURE BLOOD [BC] Stat Lab 10/28/19 16:45 Received CULTURE BLOOD [BC] Stat Lab 10/28/19 17:00 Received INR,PT,PROTHROMBIN TIME [COAG] Routine Lab 10/28/19 22:55 Ordered MAGNESIUM [CHEM] AM Lab 10/29/19 05:11 Ordered MAGNESIUM [CHEM] AM Lab 10/30/19 05:11 Ordered MAGNESIUM [CHEM] AM Lab 10/31/19 05:11 Ordered MAGNESIUM [CHEM] AM Lab 11/01/19 05:11 Ordered MAGNESIUM [CHEM] AM Lab 11/02/19 05:11 Ordered PHOSPHORUS [CHEM] AM Lab 10/29/19 05:11 Ordered PHOSPHORUS [CHEM] AM Lab 10/30/19 05:11 Ordered PHOSPHORUS [CHEM] AM Lab 10/31/19 05:11 Ordered PHOSPHORUS [CHEM] AM Lab 11/01/19 05:11 Ordered PHOSPHORUS [CHEM] AM Lab 11/02/19 05:11 Ordered PROCALCITONIN [REF] Routine Lab 10/28/19 22:54 Ordered PTT,PARTIAL THROMBOPLSTIN TIME [COAG] Routine Lab 10/28/19 22:55 Ordered URINALYSIS W/MICROSCOPIC [UA W/MICROSCOPIC] [URIN] Stat Lab 10/28/19 16:24 Ordered Acetaminophen [TylenoL] Med 10/28/19 20:42 Active 650 mg PO Q4H PRN Albuterol [Proventil HFA] Med 10/29/19 09:00 Pending See Dose Instructions INH QID Azithromycin [Zithromax] 500 mg Med 10/28/19 23:00 Ordered Sodium Chloride 0.9% [Normal Saline] 250 ml IV Q24H Dextrose 5%-0.9% NaCl [Dextrose 5%-Normal Saline] 1,000 Med 10/28/19 16:30 Active ml IV ASDIRECTED Enoxaparin [Lovenox] Med 10/29/19 09:00 Ordered 40 mg SUBCUT BID Glycopyrrolate [Seebri Neohaler] Med 10/29/19 09:00 Pending 15.6 mcg IH BID Ketorolac [Toradol] Med 10/29/19 00:30 Active 30 mg IVPUSH Q6H PRN Magnesium Sulfate/Water [Magnesium Sulfate in Water Med 10/28/19 20:12 Active Premix] 4 gm Premix Bag 1 bag IV ONETIME Mometasone/Formoterol [Dulera 200-5 MCG] Med 10/29/19 09:00 Active 2 puff IH BID Ondansetron [Zofran] Med 10/28/19 22:47 Ordered 4 mg IV Q4H PRN Sodium Chloride 0.9% [Saline Flush] Med 10/28/19 22:52 Ordered 10 ml FLUSH ASDIRECTED PRN Blood Culture x2 Reflex Set [OM.PC] Stat Oth 10/28/19 16:24 Ordered Saline Lock Insert [OM.PC] Routine Oth 10/28/19 22:47 Ordered Resuscitation Status Routine Resus Stat 10/28/19 22:47 Ordered Medication Orders Acetaminophen (Tylenol) 650 mg PO Q4H PRN PRN Reason: Fever Last Admin: 10/28/19 20:50 Dose: 650 mg Documented by: CHUCK Albuterol (Proventil Hfa) 0 gm INH QID ANA Enoxaparin Sodium (Lovenox) 40 mg SUBCUT BID ANA Glycopyrrolate (Seebri Neohaler) 15.6 mcg IH BID ANA Dextrose/Sodium Chloride (Dextrose 5%-Normal Saline) 1,000 mls @ 999 mls/hr IV ASDIRECTED ANA Last Admin: 10/28/19 17:16 Dose: 999 mls/hr Documented by: MAGDALENA Magnesium Sulfate 4 gm/ Premix 50 mls @ 12.5 mls/hr IV ONETIME ONE Stop: 10/29/19 00:11 Last Admin: 10/28/19 20:32 Dose: 12.5 mls/hr Documented by: CHUCK Ketorolac Tromethamine (Toradol) 30 mg IVPUSH Q6H PRN PRN Reason: Pain Stop: 11/02/19 00:31 Mometasone Furoate/Formoterol Fumar (Dulera 200-5 Mcg) 2 puff IH BID ANA Ondansetron HCl (Zofran) 4 mg IV Q4H PRN PRN Reason: Nausea/Vomiting Sodium Chloride (Saline Flush) 10 ml FLUSH ASDIRECTED PRN PRN Reason: Keep Vein Open Assessment/Plan Comment:: Assessment COVID positive infection * Testing done 3 days ago. * Symptoms include severe cough, shortness of breath, high fever, chills, and emesis. * Mildly hypoxic with a pulse ox in the low 90% on room air * D-dimer 0.7, C-reactive protein 17.1, negative troponin, ferritin 261, LDH 355 Pneumonia versus bronchitis right lower lobe * WBC 5 * CRP 17.1 Asthma * On Dulera at home. * Mild shortness of breath and cough. Hypomagnesemia, hypokalemia * Magnesium 1.6, potassium 3.2 Plan * Refer for observation secondary to borderline hypoxia and asthma placing her at much greater risk for complications. * Start azithromycin * Hold off on remdesivir secondary to not requiring supplemental oxygen * Consider dexamethasone if symptoms are not improving or requiring steroids to treat her asthma, or requiring supplemental oxygen. * Strict isolation * [place]ebri 1 puff daily * Albuterol 2 puffs 4 times daily * Toradol and ibuprofen as needed for headache and pain. * Magnesium and potassium replacement * Procalcitonin * CBC, CMP, magnesium daily * Trend C-reactive protein and d-dimer. * VTE prophylaxis with Lovenox * CODE STATUS: Full code * Disposition: Observation and monitor oxygen saturations. If patient improves and does not need supplemental O2 estimate discharge in less than 2 days. - Mortality Measure Prognosis:: Good
[2019-10-28] MEDS ORDERED: Azithromycin 500 MG in Sodium Chloride 0.9% 250 ML IV SCH (23:00)
[2019-10-29] MEDS ORDERED: Azithromycin 500 MG Vial ONE (07:58)
[2019-10-29] MEDS ORDERED: Potassium Chloride 20 MEQ Tab.ER PO ONE (08:24)
[2019-10-29] MEDS: Glycopyrrolate 15.6 MCG Cap.W.Dev Kit of 6 IH SCH ×3 (08:30→20:40)
[2019-10-29] MEDS: Formoterol/Mometasone 200-5 MCG 8.8 GM Inhaler IH SCH ×2 (08:32→20:40)
[2019-10-29] MEDS: Albuterol 6.7 GM Inhaler INH SCH ×4 (08:33→20:40)
[2019-10-29] MEDS ORDERED: Azithromycin 500 MG in Sodium Chloride 0.9% 250 ML IV SCH ×2 (09:00→10:00)
[2019-10-29] MEDS: Acetaminophen 325 MG Tab PO PRN ×2 (09:04→20:23)
[2019-10-29] MEDS: Enoxaparin 40 MG/0.4 ML Syringe SUBCUT SCH ×2 (09:23→20:22)
[2019-10-29] MEDS: Calcium Carbonate 500 MG Tab.Chew PO PRN ×2 (10:40→20:23)
[2019-10-29] MEDS: Ketorolac 30 MG/ML SDV IVPUSH PRN ×2 (10:41→21:56)
[2019-10-29] MEDS: Dexamethasone 4 MG Tab PO SCH (13:40)
[2019-10-29] MEDS: cefTRIAXone 2 GM in Sodium Chloride 0.9% 100 ML IV SCH (13:41)
--- NOTE | 2019-10-29 14:07 | PCM.PN ---
- General Info Date of Service: 10/29/19 Admission Dx/Problem (Free Text): Admission Diagnosis/Problem Admission Diagnosis/Problem Pneumonia Subjective Update: Patient states that she continues to have a cough and has no significant change from yesterday. The breathing treatment this morning did seem to help. Appetite is still good. Functional Status: Reports: Pain Controlled - Review of Systems General: Reports: No Symptoms HEENT: Reports: No Symptoms Pulmonary: Reports: Cough, Wheezing Cardiovascular: Reports: No Symptoms Gastrointestinal: Reports: No Symptoms Musculoskeletal: Reports: No Symptoms Neurological: Reports: No Symptoms Psychiatric: Reports: No Symptoms - Patient Data Vitals - Most Recent: Last Vital Signs Temp 98.2 F 10/29/19 09:11 Pulse 108 H 10/28/19 16:06 Resp 20 10/29/19 09:11 BP 126/81 10/29/19 09:11 Pulse Ox 95 10/29/19 12:40 Weight - Most Recent: 143.471 kg I&O - Last 24 Hours: Intake & Output 10/28/19 10/29/19 10/29/19 22:59 06:59 14:59 Intake Total 1050 245 Balance 1050 245 Lab Results Last 24 Hours: Laboratory Results - last 24 hr 10/28/19 10/28/19 10/28/19 Range/Units 16:45 16:45 16:45 WBC 4.98 (3.98-10.04) K/mm3 RBC 4.13 (3.98-5.22) M/mm3 Hgb 12.1 (11.2-15.7) gm/dl Hct 36.9 (34.1-44.9) % MCV 89.3 D (79.4-94.8) fl MCH 29.3 (25.6-32.2) pg MCHC 32.8 (32.2-35.5) g/dl RDW Std Deviation 48.0 H (36.4-46.3) fL Plt Count 158 L D (182-369) K/mm3 MPV 9.7 (9.4-12.3) fl Neut % (Auto) (34.0-71.1) % Lymph % (Auto) (19.3-51.7) % [place] % (Auto) (4.7-12.5) % Eos % (Auto) (0.7-5.8) Baso % (Auto) (0.1-1.2) % Neut # (Auto) (1.56-6.13) K/mm3 Lymph # (Auto) (1.18-3.74) K/mm3 [place] # (Auto) (0.24-0.36) K/mm3 Eos # (Auto) (0.04-0.36) K/mm3 Baso # (Auto) (0.01-0.08) K/mm3 Neutrophils % (Manual) 78 H (40-60) % Band Neutrophils % 2 (0-10) % Lymphocytes % (Manual) 16 L (20-40) % Atypical Lymphs % 0 % Monocytes % (Manual) 2 (2-10) % Eosinophils % (Manual) 1 (0.7-5.8) % Basophils % (Manual) 1 (0.1-1.2) Platelet Estimate Adequate Anisocytosis 1+ slight RBC Morph Comment Abnormal PT (9.7-12.0) SECONDS INR APTT (22-31) SECONDS D-Dimer, Quantitative 0.71 H (0.19-0.50) mg/L Sodium 137 (136-145) mEq/L Potassium 3.2 L (3.5-5.1) mEq/L Chloride 101 (98-107) mEq/L Carbon Dioxide 27 (21-32) mEq/L Anion Gap 12.2 (5-15) BUN 7 (7-18) mg/dL Creatinine 1.0 (0.55-1.02) mg/dL Est Cr Clr Drug Dosing TNP Estimated GFR (MDRD) > 60 (>60) mL/min BUN/Creatinine Ratio 7.0 L (14-18) Glucose 115 H (74-106) mg/dL Calcium 7.8 L (8.5-10.1) mg/dL Phosphorus (2.6-4.7) mg/dL Magnesium 1.6 L (1.8-2.4) mg/dl Ferritin (8-252) ng/ml Total Bilirubin 0.2 (0.2-1.0) mg/dL AST 86 H (15-37) U/L ALT 105 H (14-59) U/L Alkaline Phosphatase 96 (46-116) U/L Lactate Dehydrogenase (81-234) U/L Troponin I (0.00-0.056) ng/mL C-Reactive Protein 17.1 H* (<1.0) mg/dL Total Protein 6.9 (6.4-8.2) g/dl Albumin 3.0 L (3.4-5.0) g/dl Globulin 3.9 gm/dL Albumin/Globulin Ratio 0.8 L (1-2) 10/28/19 10/28/19 10/29/19 Range/Units 16:45 16:45 05:34 WBC (3.98-10.04) K/mm3 RBC (3.98-5.22) M/mm3 Hgb (11.2-15.7) gm/dl Hct (34.1-44.9) % MCV (79.4-94.8) fl MCH (25.6-32.2) pg MCHC (32.2-35.5) g/dl RDW Std Deviation (36.4-46.3) fL Plt Count (182-369) K/mm3 MPV (9.4-12.3) fl Neut % (Auto) (34.0-71.1) % Lymph % (Auto) (19.3-51.7) % [place] % (Auto) (4.7-12.5) % Eos % (Auto) (0.7-5.8) Baso % (Auto) (0.1-1.2) % Neut # (Auto) (1.56-6.13) K/mm3 Lymph # (Auto) (1.18-3.74) K/mm3 [place] # (Auto) (0.24-0.36) K/mm3 Eos # (Auto) (0.04-0.36) K/mm3 Baso # (Auto) (0.01-0.08) K/mm3 Neutrophils % (Manual) (40-60) % Band Neutrophils % (0-10) % Lymphocytes % (Manual) (20-40) % Atypical Lymphs % % Monocytes % (Manual) (2-10) % Eosinophils % (Manual) (0.7-5.8) % Basophils % (Manual) (0.1-1.2) Platelet Estimate Anisocytosis RBC Morph Comment PT 10.1 (9.7-12.0) SECONDS INR 0.94 APTT 31 (22-31) SECONDS D-Dimer, Quantitative (0.19-0.50) mg/L Sodium (136-145) mEq/L Potassium (3.5-5.1) mEq/L Chloride (98-107) mEq/L Carbon Dioxide (21-32) mEq/L Anion Gap (5-15) BUN (7-18) mg/dL Creatinine (0.55-1.02) mg/dL Est Cr Clr Drug Dosing Estimated GFR (MDRD) (>60) mL/min BUN/Creatinine Ratio (14-18) Glucose (74-106) mg/dL Calcium (8.5-10.1) mg/dL Phosphorus (2.6-4.7) mg/dL Magnesium (1.8-2.4) mg/dl Ferritin 261 H (8-252) ng/ml Total Bilirubin (0.2-1.0) mg/dL AST (15-37) U/L ALT (14-59) U/L Alkaline Phosphatase (46-116) U/L Lactate Dehydrogenase 355 H (81-234) U/L Troponin I < 0.017 (0.00-0.056) ng/mL C-Reactive Protein (<1.0) mg/dL Total Protein (6.4-8.2) g/dl Albumin (3.4-5.0) g/dl Globulin gm/dL Albumin/Globulin Ratio (1-2) 10/29/19 10/29/19 Range/Units 05:34 05:34 WBC 3.79 L (3.98-10.04) K/mm3 RBC 3.96 L (3.98-5.22) M/mm3 Hgb 11.5 (11.2-15.7) gm/dl Hct 35.8 (34.1-44.9) % MCV 90.4 (79.4-94.8) fl MCH 29.0 (25.6-32.2) pg MCHC 32.1 L (32.2-35.5) g/dl RDW Std Deviation 48.4 H (36.4-46.3) fL Plt Count 153 L (182-369) K/mm3 MPV 10.3 (9.4-12.3) fl Neut % (Auto) 77.5 H (34.0-71.1) % Lymph % (Auto) 19.0 L (19.3-51.7) % [place] % (Auto) 2.9 L (4.7-12.5) % Eos % (Auto) 0 L (0.7-5.8) Baso % (Auto) 0.3 (0.1-1.2) % Neut # (Auto) 2.94 (1.56-6.13) K/mm3 Lymph # (Auto) 0.72 L (1.18-3.74) K/mm3 [place] # (Auto) 0.11 L (0.24-0.36) K/mm3 Eos # (Auto) 0.00 L (0.04-0.36) K/mm3 Baso # (Auto) 0.01 (0.01-0.08) K/mm3 Neutrophils % (Manual) (40-60) % Band Neutrophils % (0-10) % Lymphocytes % (Manual) (20-40) % Atypical Lymphs % % Monocytes % (Manual) (2-10) % Eosinophils % (Manual) (0.7-5.8) % Basophils % (Manual) (0.1-1.2) Platelet Estimate Anisocytosis RBC Morph Comment PT (9.7-12.0) SECONDS INR APTT (22-31) SECONDS D-Dimer, Quantitative (0.19-0.50) mg/L Sodium 137 (136-145) mEq/L Potassium 3.4 L (3.5-5.1) mEq/L Chloride 103 (98-107) mEq/L Carbon Dioxide 25 (21-32) mEq/L Anion Gap 12.4 (5-15) BUN 8 (7-18) mg/dL Creatinine 0.9 (0.55-1.02) mg/dL Est Cr Clr Drug Dosing 82.42 Estimated GFR (MDRD) > 60 (>60) mL/min BUN/Creatinine Ratio 8.9 L (14-18) Glucose 114 H (74-106) mg/dL Calcium 7.7 L (8.5-10.1) mg/dL Phosphorus 2.7 (2.6-4.7) mg/dL Magnesium 2.2 (1.8-2.4) mg/dl Ferritin (8-252) ng/ml Total Bilirubin 0.2 (0.2-1.0) mg/dL AST 89 H (15-37) U/L ALT 103 H (14-59) U/L Alkaline Phosphatase 94 (46-116) U/L Lactate Dehydrogenase (81-234) U/L Troponin I (0.00-0.056) ng/mL C-Reactive Protein 17.4 H* (<1.0) mg/dL Total Protein 6.6 (6.4-8.2) g/dl Albumin 2.8 L (3.4-5.0) g/dl Globulin 3.8 gm/dL Albumin/Globulin Ratio 0.7 L (1-2) Med Orders - Current: Current Medications Acetaminophen (Tylenol) 650 mg PO Q4H PRN PRN Reason: Fever Last Admin: 10/29/19 09:04 Dose: 650 mg Documented by: Albuterol (Proventil Hfa) 0 gm INH QID [facility] Last Admin: 10/29/19 12:40 Dose: 1 puff Documented by: Calcium Carbonate/Glycine (Tums) 1,000 mg PO Q4H PRN PRN Reason: Indigestion Last Admin: 10/29/19 10:40 Dose: 1,000 mg Documented by: Dexamethasone (Dexamethasone) 6 mg PO DAILY [facility] Stop: 11/08/19 12:01 Last Admin: 10/29/19 13:40 Dose: 6 mg Documented by: Enoxaparin Sodium (Lovenox) 40 mg SUBCUT BID [facility] Last Admin: 10/29/19 09:23 Dose: 40 mg Documented by: Glycopyrrolate (Seebri Neohaler) 0 mcg IH BID [facility] Last Admin: 10/29/19 08:34 Dose: 1 cap Documented by: Dextrose/Sodium Chloride (Dextrose 5%-Normal Saline) 1,000 mls @ 999 mls/hr IV ASDIRECTED [facility] Last Admin: 10/28/19 17:16 Dose: 999 mls/hr Documented by: Azithromycin 500 mg/ Sodium (Chloride) 250 mls @ 250 mls/hr IV Q24H [facility] Stop: 10/31/19 10:59 Ceftriaxone Sodium 2 gm/ (Sodium Chloride) 100 mls @ 200 mls/hr IV Q24H [facility] Stop: 11/03/19 12:01 Last Admin: 10/29/19 13:41 Dose: 200 mls/hr Documented by: Ketorolac Tromethamine (Toradol) 30 mg IVPUSH Q6H PRN PRN Reason: Pain Stop: 11/02/19 00:31 Last Admin: 10/29/19 10:41 Dose: 30 mg Documented by: Mometasone Furoate/Formoterol Fumar (Dulera 200-5 Mcg) 2 puff IH BID [facility] Last Admin: 10/29/19 08:32 Dose: 2 puff Documented by: Ondansetron HCl (Zofran) 4 mg IV Q4H PRN PRN Reason: Nausea/Vomiting Sodium Chloride (Saline Flush) 10 ml FLUSH ASDIRECTED PRN PRN Reason: Keep Vein Open Discontinued Medications Acetaminophen (Tylenol) 975 mg PO ONETIME ONE Stop: 10/28/19 16:24 Last Admin: 10/28/19 17:04 Dose: 975 mg Documented by: Albuterol/Ipratropium (Duoneb 3.0-0.5 Mg/3 Ml) 3 ml NEB Q4H PRN PRN Reason: Shortness Of Breath/wheezing Last Admin: 10/28/19 18:20 Dose: 3 ml Documented by: Azithromycin (Zithromax) Confirm Administered Dose 500 mg .ROUTE .STK-MED ONE Stop: 10/29/19 07:59 Last Admin: 10/29/19 08:50 Dose: Not Given Documented by: Potassium Chloride 40 meq/ (Dextrose/Lactated Ringer's) 1,020 mls @ 125 mls/hr IV ASDIRECTED ANA Magnesium Sulfate 4 gm/ Premix 50 mls @ 12.5 mls/hr IV ONETIME ONE Stop: 10/29/19 00:11 Last Admin: 10/28/19 20:32 Dose: 12.5 mls/hr Documented by: Azithromycin 500 mg/ Sodium (Chloride) 250 mls @ 250 mls/hr IV Q24H [facility] Stop: 10/31/19 23:01 Last Admin: 10/28/19 23:02 Dose: Not Given Documented by: Azithromycin 500 mg/ Sodium (Chloride) 250 mls @ 250 mls/hr IV Q24H [facility] Stop: 11/01/19 09:01 Azithromycin 500 mg/ Sodium (Chloride) 250 mls @ 250 mls/hr IV Q24H [facility] Stop: 11/02/19 10:59 Last Admin: 10/29/19 09:24 Dose: 250 mls/hr Documented by: REMDESIVIR (EUA) 200 mg/ (Sodium Chloride) 250 mls @ 250 mls/hr IV ONETIME ONE Stop: 10/29/19 13:59 Last Admin: 10/29/19 13:45 Dose: Not Given Documented by: REMDESIVIR (EUA) 100 mg/ (Sodium Chloride) 100 mls @ 100 mls/hr IV Q24H [facility] Stop: 11/03/19 13:01 Ketorolac Tromethamine (Toradol) 30 mg IVPUSH ONETIME ANA Last Admin: 10/28/19 18:23 Dose: 30 mg Documented by: Ondansetron HCl (Zofran) 4 mg IVPUSH ONETIME ONE Stop: 10/28/19 16:24 Last Admin: 10/28/19 17:15 Dose: 4 mg Documented by: Potassium Chloride (Klor-Con M20) 40 meq PO ONETIME ONE Stop: 10/28/19 19:46 Last Admin: 10/28/19 20:14 Dose: 40 meq Documented by: Potassium Chloride (Klor-Con M20) 40 meq PO ONETIME ONE Stop: 10/29/19 08:25 Last Admin: 10/29/19 09:03 Dose: 40 meq Documented by: - Exam General: Alert, Oriented HEENT: Pupils Equal Neck: Supple Lungs: Clear to Auscultation, Normal Respiratory Effort Cardiovascular: Regular Rate, Regular Rhythm GI/Abdominal Exam: Normal Bowel Sounds, Soft, Non-Tender, No Distention Back Exam: Normal Inspection, Full Range of Motion Extremities: Normal Inspection, Normal Range of Motion, Non-Tender, No Pedal Edema, Normal Capillary Refill Skin: Warm, Dry, Intact Psy/Mental Status: Alert, Normal Affect, Normal Mood Sepsis Event Note - Evaluation Sepsis Screening Result: No Definite Risk - Focused Exam Vital Signs: Vital Signs Temp Resp BP Pulse Ox Pulse Ox 10/29/19 12:40 95 10/29/19 09:11 98.2 F 20 126/81 90 L 10/29/19 08:00 93 L 10/29/19 03:11 97.5 F 20 124/79 90 L - Problem List & Annotations (1) Asthma SNOMED Code(s): 563914467 Code(s): J45.909 - UNSPECIFIED ASTHMA, UNCOMPLICATED Status: Acute Current Visit: Yes Qualifiers: Asthma severity: moderate Asthma persistence: persistent Asthma complication type: uncomplicated Qualified Code(s): J45.40 - Moderate persistent asthma, uncomplicated (2) Hypokalemia SNOMED Code(s): 22662169 Code(s): E87.6 - HYPOKALEMIA Status: Acute Current Visit: Yes (3) Hypomagnesemia SNOMED Code(s): 066600735 Code(s): E83.42 - HYPOMAGNESEMIA Status: Acute Current Visit: Yes (4) Hypoxia SNOMED Code(s): 007319590 Code(s): R09.02 - HYPOXEMIA Status: Acute Current Visit: Yes (5) Lab test positive for detection of COVID-19 virus SNOMED Code(s): 751730442, 166875457 Code(s): U07.1 - COVID-19 Status: Acute Current Visit: Yes (6) Pneumonia SNOMED Code(s): 740205899 Code(s): J18.9 - PNEUMONIA, UNSPECIFIED ORGANISM Status: Acute Current Visit: Yes Qualifiers: Laterality: right Lung location: lower lobe of lung - Problem List Review Problem List Initiated/Reviewed/Updated: Yes - My Orders Last 24 Hours: My Active Orders 10/28/19 20:42 Acetaminophen [TylenoL] 650 mg PO Q4H PRN 10/28/19 22:16 RT Post Treatment Assessment [RC] Click to Edit RT Pre-Treatment Assessment [RC] Click to Edit 10/28/19 22:47 Up ad Monse [RC] ASDIRECTED Ondansetron [Zofran] 4 mg IV Q4H PRN Saline Lock Insert [OM.PC] Routine Resuscitation Status Routine 10/28/19 22:48 Oxygen Therapy [RC] .PRN VTE/DVT Education [RC] BID 10/28/19 22:52 Sodium Chloride 0.9% [Saline Flush] 10 ml FLUSH ASDIRECTED PRN 10/28/19 22:54 PROCALCITONIN [REF] Routine 10/29/19 00:30 Ketorolac [Toradol] 30 mg IVPUSH Q6H PRN 10/29/19 Breakfast Regular Diet [DIET] 10/29/19 09:00 Albuterol [Proventil HFA] See Dose Instructions INH QID Enoxaparin [Lovenox] 40 mg SUBCUT BID Glycopyrrolate [Seebri Neohaler] 0 mcg IH BID Mometasone/Formoterol [Dulera 200-5 MCG] 2 puff IH BID 10/29/19 10:19 Calcium Carbonate [Tums] 1,000 mg PO Q4H PRN 10/29/19 12:00 cefTRIAXone [Rocephin] 2 gm Sodium Chloride 0.9% [Normal Saline] 100 ml IV Q24H dexAMETHasone 6 mg PO DAILY 10/30/19 05:11 C-REACTIVE PROTEIN [CHEM] AM CBC WITH AUTO DIFF [HEME] AM COMPREHENSIVE METABOLIC PN,CMP [CHEM] AM MAGNESIUM [CHEM] AM PHOSPHORUS [CHEM] AM 10/30/19 10:00 Azithromycin [Zithromax] 500 mg Sodium Chloride 0.9% [Normal Saline] 250 ml IV Q24H 10/31/19 05:11 C-REACTIVE PROTEIN [CHEM] AM CBC WITH AUTO DIFF [HEME] AM COMPREHENSIVE METABOLIC PN,CMP [CHEM] AM MAGNESIUM [CHEM] AM PHOSPHORUS [CHEM] AM 11/01/19 05:11 C-REACTIVE PROTEIN [CHEM] AM CBC WITH AUTO DIFF [HEME] AM COMPREHENSIVE METABOLIC PN,CMP [CHEM] AM MAGNESIUM [CHEM] AM PHOSPHORUS [CHEM] AM 11/02/19 05:11 C-REACTIVE PROTEIN [CHEM] AM CBC WITH AUTO DIFF [HEME] AM COMPREHENSIVE METABOLIC PN,CMP [CHEM] AM MAGNESIUM [CHEM] AM PHOSPHORUS [CHEM] AM - Assessment Assessment:: Assessment of admission COVID positive infection * Testing done 3 days ago. * Symptoms include severe cough, shortness of breath, high fever, chills, and emesis. * Mildly hypoxic with a pulse ox in the low 90% on room air * D-dimer 0.7, C-reactive protein 17.1, negative troponin, ferritin 261, LDH 355 Pneumonia versus bronchitis right lower lobe * WBC 5 * CRP 17.1 Asthma * On Dulera at home. * Mild shortness of breath and cough. Hypomagnesemia, hypokalemia * Magnesium 1.6, potassium 3.2 Plan * Refer for observation secondary to borderline hypoxia and asthma placing her at much greater risk for complications. * Start azithromycin * Hold off on remdesivir secondary to not requiring supplemental oxygen * Consider dexamethasone if symptoms are not improving or requiring steroids to treat her asthma, or requiring supplemental oxygen. * Strict isolation * Seebri 1 puff daily * Albuterol 2 puffs 4 times daily * Toradol and ibuprofen as needed for headache and pain. * Magnesium and potassium replacement * Procalcitonin * CBC, CMP, magnesium daily * Trend C-reactive protein and d-dimer. * VTE prophylaxis with Lovenox * CODE STATUS: Full code * Disposition: Observation and monitor oxygen saturations. If patient improves and does not need supplemental O2 estimate discharge in less than 2 days. 10/29/2019 COVID positive * No change in C-reactive protein: 70.4 * Symptomatically she has no change. Pulse ox still in the low to mid 90s. * Not requiring FiO2 supplementation Pneumonia versus bronchitis right lower lobe * Currently on azithromycin * No change Asthma * Improvement with albuterol * Mild wheeze Hypomagnesemia, hypokalemia * Magnesium 2.2 * Potassium 3.4 - Plan Plan:: Plan * Refer for observation secondary to borderline hypoxia and asthma placing her at much greater risk for complications. * Continue azithromycin * Start Rocephin 2 g every 24 hours * Hold off on remdesivir secondary to not requiring supplemental oxygen * Start dexamethasone 6 mg p.o. daily. * Strict isolation * Seebri 1 puff daily * Albuterol 2 puffs 4 times daily * Toradol and ibuprofen as needed for headache and pain. * Potassium chloride 40 mEq p.o. x1 * Procalcitonin * CBC, CMP, magnesium daily * Trend C-reactive protein and d-dimer. * VTE prophylaxis with Lovenox * CODE STATUS: Full code * Disposition: Observation and monitor oxygen saturations. If patient improves and does not need supplemental O2 estimate discharge in less than 2 days.
[2019-10-29] MEDS: Benzonatate 100 MG Cap PO PRN (20:22)
[2019-10-29] MEDS: Codeine/guaiFENesin 10-100 MG/5 ML Syrup 5 ML Cup PO PRN (20:23)
[2019-10-29] MEDS: Melatonin 3 MG Tab PO PRN (21:04)
[2019-10-30] MEDS ORDERED: Glycopyrrolate 15.6 MCG Cap.W.Dev Kit of 6 IH SCH ×2 (01:24→09:00)
[2019-10-30] MEDS: Albuterol 6.7 GM Inhaler INH SCH ×5 (06:35→20:15)
[2019-10-30] MEDS: Formoterol/Mometasone 200-5 MCG 8.8 GM Inhaler IH SCH ×2 (08:52→20:14)
[2019-10-30] MEDS: Enoxaparin 40 MG/0.4 ML Syringe SUBCUT SCH ×2 (09:23→20:12)
[2019-10-30] MEDS: Dexamethasone 4 MG Tab PO SCH (09:23)
[2019-10-30] MEDS: Ketorolac 30 MG/ML SDV IVPUSH PRN ×2 (09:37→20:12)
[2019-10-30] MEDS: Azithromycin 500 MG in Sodium Chloride 0.9% 250 ML IV SCH (09:38)
[2019-10-30] MEDS ORDERED: Tocilizumab 400 MG/20 ML SDV IV ONE (10:00)
[2019-10-30] MEDS: cefTRIAXone 2 GM in Sodium Chloride 0.9% 100 ML IV SCH (12:13)
--- NOTE | 2019-10-30 12:29 | PCM.PN ---
- General Info Date of Service: 10/30/19 Admission Dx/Problem (Free Text): Admission Diagnosis/Problem Admission Diagnosis/Problem Pneumonia Subjective Update: Patient has had increasing oxygen requirements and has now been placed on 2 L nasal cannula overnight for blood sugars dropping into the upper 80s. Patient complains of a cough and shortness of breath. Appetite is adequate. Functional Status: Reports: Pain Controlled - Review of Systems General: Reports: No Symptoms HEENT: Reports: No Symptoms Pulmonary: Reports: Shortness of Breath, Cough, Wheezing Cardiovascular: Reports: No Symptoms Gastrointestinal: Reports: No Symptoms Musculoskeletal: Reports: No Symptoms Skin: Reports: No Symptoms Neurological: Reports: No Symptoms Psychiatric: Reports: No Symptoms - Patient Data Vitals - Most Recent: Last Vital Signs Temp 99.0 F 10/30/19 09:28 Pulse 92 10/29/19 22:00 Resp 20 10/30/19 09:28 BP 125/91 H 10/30/19 09:28 Pulse Ox 91 L 10/30/19 09:28 Weight - Most Recent: 144.242 kg I&O - Last 24 Hours: Intake & Output 10/29/19 10/30/19 10/30/19 22:59 06:59 14:59 Intake Total 870 1200 Balance 870 1200 Lab Results Last 24 Hours: Laboratory Results - last 24 hr 10/29/19 10/30/19 10/30/19 Range/Units 05:34 05:40 05:40 WBC 3.46 L (3.98-10.04) K/mm3 RBC 3.96 L (3.98-5.22) M/mm3 Hgb 11.5 (11.2-15.7) gm/dl Hct 35.9 (34.1-44.9) % MCV 90.7 (79.4-94.8) fl MCH 29.0 (25.6-32.2) pg MCHC 32.0 L (32.2-35.5) g/dl RDW Std Deviation 49.3 H (36.4-46.3) fL Plt Count 163 L (182-369) K/mm3 MPV 10.0 (9.4-12.3) fl Neut % (Auto) 80.9 H (34.0-71.1) % Lymph % (Auto) 14.7 L (19.3-51.7) % [place] % (Auto) 3.8 L (4.7-12.5) % Eos % (Auto) 0 L (0.7-5.8) Baso % (Auto) 0.3 (0.1-1.2) % Neut # (Auto) 2.80 (1.56-6.13) K/mm3 Lymph # (Auto) 0.51 L (1.18-3.74) K/mm3 [place] # (Auto) 0.13 L (0.24-0.36) K/mm3 Eos # (Auto) 0.00 L (0.04-0.36) K/mm3 Baso # (Auto) 0.01 (0.01-0.08) K/mm3 Sodium 133 L (136-145) mEq/L Potassium 4.1 (3.5-5.1) mEq/L Chloride 101 (98-107) mEq/L Carbon Dioxide 24 (21-32) mEq/L Anion Gap 12.1 (5-15) BUN 6 L (7-18) mg/dL Creatinine 0.7 (0.55-1.02) mg/dL Est Cr Clr Drug Dosing 105.97 mL/min Estimated GFR (MDRD) > 60 (>60) mL/min BUN/Creatinine Ratio 8.6 L (14-18) Glucose 147 H (74-106) mg/dL Magnesium 2.0 (1.8-2.4) mg/dl Total Bilirubin 0.2 (0.2-1.0) mg/dL AST 66 H (15-37) U/L ALT 87 H (14-59) U/L Alkaline Phosphatase 115 (46-116) U/L C-Reactive Protein 14.4 H* (<1.0) mg/dL Total Protein 6.9 (6.4-8.2) g/dl Albumin 2.8 L (3.4-5.0) g/dl Globulin 4.1 gm/dL Albumin/Globulin Ratio 0.7 L (1-2) Procalcitonin 0.54 H (<0.10) ng/mL Garret Results Last 24 Hours: Microbiology 10/28/19 17:00 Aerobic Blood Culture - Preliminary Blood - Venous - Lab Draw NO GROWTH AFTER 1 DAY Anaerobic Blood Culture - Preliminary NO GROWTH AFTER 1 DAY 10/28/19 16:45 Aerobic Blood Culture - Preliminary Blood - Venous NO GROWTH AFTER 1 DAY Anaerobic Blood Culture - Preliminary NO GROWTH AFTER 1 DAY Med Orders - Current: Current Medications Acetaminophen (Tylenol) 650 mg PO Q4H PRN PRN Reason: Fever Last Admin: 10/29/19 20:23 Dose: 650 mg Documented by: Albuterol (Proventil Hfa) 0 gm INH QIDRT [facility] Last Admin: 10/30/19 09:07 Dose: Not Given Documented by: Benzonatate (Tessalon Perles) 100 mg PO TID PRN PRN Reason: Cough Last Admin: 10/29/19 20:22 Dose: 100 mg Documented by: Calcium Carbonate/Glycine (Tums) 1,000 mg PO Q4H PRN PRN Reason: Indigestion Last Admin: 10/29/19 20:23 Dose: 1,000 mg Documented by: Dexamethasone (Dexamethasone) 6 mg PO DAILY [facility] Stop: 11/08/19 12:01 Last Admin: 10/30/19 09:23 Dose: 6 mg Documented by: Enoxaparin Sodium (Lovenox) 40 mg SUBCUT BID [facility] Last Admin: 10/30/19 09:23 Dose: 40 mg Documented by: Glycopyrrolate (Seebri Neohaler) 15.6 mcg IH BIDRT [facility] Guaifenesin/Codeine Phosphate (Robitussin Ac) 5 ml PO Q4H PRN PRN Reason: Cough Last Admin: 10/29/19 20:23 Dose: 5 ml Documented by: Azithromycin 500 mg/ Sodium (Chloride) 250 mls @ 250 mls/hr IV Q24H [facility] Stop: 10/31/19 10:59 Last Admin: 10/30/19 09:38 Dose: 250 mls/hr Documented by: Ceftriaxone Sodium 2 gm/ (Sodium Chloride) 100 mls @ 200 mls/hr IV Q24H [facility] Stop: 11/02/19 14:00 Last Admin: 10/30/19 12:13 Dose: 200 mls/hr Documented by: REMDESIVIR (EUA) 100 mg/ (Sodium Chloride) 100 mls @ 100 mls/hr IV Q24H [facility] Stop: 11/04/19 11:01 Tocilizumab 800 mg/ Sodium (Chloride) 100 mls @ 100 mls/hr IV ONETIME ONE Stop: 08/25/20 13:59 Ketorolac Tromethamine (Toradol) 30 mg IVPUSH Q6H PRN PRN Reason: Pain Stop: 11/02/19 00:31 Last Admin: 10/30/19 09:37 Dose: 30 mg Documented by: Melatonin (Melatonin) 12 mg PO BEDTIME PRN PRN Reason: insomnia Last Admin: 10/29/19 21:04 Dose: 12 mg Documented by: Mometasone Furoate/Formoterol Fumar (Dulera 200-5 Mcg) 2 puff IH BID [facility] Last Admin: 10/30/19 08:52 Dose: 2 puff Documented by: Ondansetron HCl (Zofran) 4 mg IV Q4H PRN PRN Reason: Nausea/Vomiting Sodium Chloride (Saline Flush) 10 ml FLUSH ASDIRECTED PRN PRN Reason: Keep Vein Open Discontinued Medications Acetaminophen (Tylenol) 975 mg PO ONETIME ONE Stop: 10/28/19 16:24 Last Admin: 10/28/19 17:04 Dose: 975 mg Documented by: Albuterol (Proventil Hfa) 0 gm INH QID [facility] Last Admin: 10/30/19 06:35 Dose: 1 puff Documented by: Albuterol/Ipratropium (Duoneb 3.0-0.5 Mg/3 Ml) 3 ml NEB Q4H PRN PRN Reason: Shortness Of Breath/wheezing Last Admin: 10/28/19 18:20 Dose: 3 ml Documented by: Azithromycin (Zithromax) Confirm Administered Dose 500 mg .ROUTE .STK-MED ONE Stop: 10/29/19 07:59 Last Admin: 10/29/19 08:50 Dose: Not Given Documented by: Glycopyrrolate (Seebri Neohaler) 0 mcg IH BID [facility] Last Admin: 10/29/19 20:40 Dose: 1 cap Documented by: Glycopyrrolate (Seebri Neohaler) 15.6 mcg IH BID [facility] Last Admin: 10/30/19 06:37 Dose: 1 cap Documented by: Dextrose/Sodium Chloride (Dextrose 5%-Normal Saline) 1,000 mls @ 999 mls/hr IV ASDIRECTED [facility] Last Admin: 10/28/19 17:16 Dose: 999 mls/hr Documented by: Potassium Chloride 40 meq/ (Dextrose/Lactated Ringer's) 1,020 mls @ 125 mls/hr IV ASDIRECTED [facility] Magnesium Sulfate 4 gm/ Premix 50 mls @ 12.5 mls/hr IV ONETIME ONE Stop: 10/29/19 00:11 Last Admin: 10/28/19 20:32 Dose: 12.5 mls/hr Documented by: Azithromycin 500 mg/ Sodium (Chloride) 250 mls @ 250 mls/hr IV Q24H [facility] Stop: 10/31/19 23:01 Last Admin: 10/28/19 23:02 Dose: Not Given Documented by: Azithromycin 500 mg/ Sodium (Chloride) 250 mls @ 250 mls/hr IV Q24H [facility] Stop: 11/01/19 09:01 Azithromycin 500 mg/ Sodium (Chloride) 250 mls @ 250 mls/hr IV Q24H [facility] Stop: 11/02/19 10:59 Last Admin: 10/29/19 09:24 Dose: 250 mls/hr Documented by: REMDESIVIR (EUA) 200 mg/ (Sodium Chloride) 250 mls @ 250 mls/hr IV ONETIME ONE Stop: 10/29/19 13:59 Last Admin: 10/29/19 13:45 Dose: Not Given Documented by: REMDESIVIR (EUA) 100 mg/ (Sodium Chloride) 100 mls @ 100 mls/hr IV Q24H [facility] Stop: 11/03/19 13:01 REMDESIVIR (EUA) 200 mg/ (Sodium Chloride) 250 mls @ 250 mls/hr IV ONETIME ONE Stop: 10/30/19 11:59 Last Admin: 10/30/19 11:40 Dose: 250 mls/hr Documented by: Ketorolac Tromethamine (Toradol) 30 mg IVPUSH ONETIME [facility] Last Admin: 10/28/19 18:23 Dose: 30 mg Documented by: Ondansetron HCl (Zofran) 4 mg IVPUSH ONETIME ONE Stop: 10/28/19 16:24 Last Admin: 10/28/19 17:15 Dose: 4 mg Documented by: Potassium Chloride (Klor-Con M20) 40 meq PO ONETIME ONE Stop: 10/28/19 19:46 Last Admin: 10/28/19 20:14 Dose: 40 meq Documented by: Potassium Chloride (Klor-Con M20) 40 meq PO ONETIME ONE Stop: 10/29/19 08:25 Last Admin: 10/29/19 09:03 Dose: 40 meq Documented by: Tocilizumab (Actemra) 800 mg IV ONETIME ONE Stop: 10/30/19 10:01 - Exam Quality Assessment: Supplemental Oxygen General: Alert, Oriented HEENT: Pupils Equal, Mucous Membr. Moist/[place] Neck: Supple, Trachea Midline Lungs: Normal Respiratory Effort, Decreased Breath Sounds, Wheezing Cardiovascular: Regular Rate, Regular Rhythm GI/Abdominal Exam: Normal Bowel Sounds, Soft, Non-Tender, No Distention Extremities: Non-Tender, No Pedal Edema, Normal Capillary Refill Peripheral Pulses: 2+: Posterior Tibial (L), Posterior Tibial (R), Dorsalis Pedis (L), Dorsalis Pedis (R) Skin: Warm, Dry, Intact Neurological: No New Focal Deficit Sepsis Event Note - Evaluation Sepsis Screening Result: No Definite Risk - Focused Exam Vital Signs: Vital Signs Temp Resp BP Pulse Ox Pulse Ox 10/30/19 09:28 99.0 F 20 125/91 H 91 L 10/30/19 08:53 92 L 10/30/19 06:44 92 L 10/30/19 06:11 97.5 F 20 105/46 L 92 L - Problem List & Annotations (1) Asthma SNOMED Code(s): 242466615 Code(s): J45.909 - UNSPECIFIED ASTHMA, UNCOMPLICATED Status: Acute Current Visit: Yes Qualifiers: Asthma severity: moderate Asthma persistence: persistent Asthma complication type: uncomplicated Qualified Code(s): J45.40 - Moderate persistent asthma, uncomplicated (2) Hypokalemia SNOMED Code(s): 77167266 Code(s): E87.6 - HYPOKALEMIA Status: Acute Current Visit: Yes (3) Hypomagnesemia SNOMED Code(s): 839254553 Code(s): E83.42 - HYPOMAGNESEMIA Status: Acute Current Visit: Yes (4) Hypoxia SNOMED Code(s): 523378559 Code(s): R09.02 - HYPOXEMIA Status: Acute Current Visit: Yes (5) Lab test positive for detection of COVID-19 virus SNOMED Code(s): 778064990, 715467201 Code(s): U07.1 - COVID-19 Status: Acute Current Visit: Yes (6) Pneumonia SNOMED Code(s): 693812071 Code(s): J18.9 - PNEUMONIA, UNSPECIFIED ORGANISM Status: Acute Current Visit: Yes Qualifiers: Laterality: right Lung location: lower lobe of lung - Problem List Review Problem List Initiated/Reviewed/Updated: Yes - My Orders Last 24 Hours: My Active Orders 10/29/19 12:00 cefTRIAXone [Rocephin] 2 gm Sodium Chloride 0.9% [Normal Saline] 100 ml IV Q2 4H dexAMETHasone 6 mg PO DAILY 10/29/19 18:55 Benzonatate [Tessalon Perles] 100 mg PO TID PRN Codeine/guaiFENesin [Robitussin AC] 5 ml PO Q4H PRN 10/29/19 20:36 Melatonin 12 mg PO BEDTIME PRN 10/29/19 20:37 IS (RT) [RT Incentive Spirometry] [RC] ASDIRECTED 10/30/19 05:40 C-REACTIVE PROTEIN [CHEM] AM COMPREHENSIVE METABOLIC PN,CMP [CHEM] AM MAGNESIUM [CHEM] AM PHOSPHORUS [CHEM] AM 10/30/19 10:00 Albuterol [Proventil HFA] See Dose Instructions INH QIDRT Azithromycin [Zithromax] 500 mg Sodium Chloride 0.9% [Normal Saline] 250 ml IV Q24H 10/30/19 12:28 CXR [Chest 1V Frontal] [CR] Routine 10/30/19 13:00 Tocilizumab [Actemra] 800 mg Sodium Chloride 0.9% [Normal Saline] 60 ml IV ONETIME 10/30/19 21:00 Glycopyrrolate [Seebri Neohaler] 15.6 mcg IH BIDRT 10/31/19 05:11 C-REACTIVE PROTEIN [CHEM] AM CBC WITH AUTO DIFF [HEME] AM COMPREHENSIVE METABOLIC PN,CMP [CHEM] AM MAGNESIUM [CHEM] AM PHOSPHORUS [CHEM] AM 10/31/19 11:00 Remdesivir (Eua) [Remdesivir (EUA)] 100 mg Sodium Chloride 0.9% [Normal Saline] 100 ml IV Q24H 11/01/19 05:11 C-REACTIVE PROTEIN [CHEM] AM CBC WITH AUTO DIFF [HEME] AM COMPREHENSIVE METABOLIC PN,CMP [CHEM] AM MAGNESIUM [CHEM] AM PHOSPHORUS [CHEM] AM 11/02/19 05:11 C-REACTIVE PROTEIN [CHEM] AM CBC WITH AUTO DIFF [HEME] AM COMPREHENSIVE METABOLIC PN,CMP [CHEM] AM MAGNESIUM [CHEM] AM PHOSPHORUS [CHEM] AM - Assessment Assessment:: Assessment 10/28/2019day of admission COVID positive infection * Testing done 3 days ago. * Symptoms include severe cough, shortness of breath, high fever, chills, and emesis. * Mildly hypoxic with a pulse ox in the low 90% on room air * D-dimer 0.7, C-reactive protein 17.1, negative troponin, ferritin 261, LDH 355 Pneumonia versus bronchitis right lower lobe * WBC 5 * CRP 17.1 Asthma * On Dulera at home. * Mild shortness of breath and cough. Hypomagnesemia, hypokalemia * Magnesium 1.6, potassium 3.2 10/29/2019 COVID positive * No change in C-reactive protein: 17.4 * Symptomatically she has no change. Pulse ox still in the low to mid 90s. * Not requiring FiO2 supplementation Pneumonia versus bronchitis right lower lobe * Currently on azithromycin * No change Asthma * Improvement with albuterol * Mild wheeze Hypomagnesemia, hypokalemia * Magnesium 2.2 * Potassium 3.4 10/30/2019 COVID-19 infection with worsening hypoxemia Pneumonia Asthma * Worsening oxygenation * Started dexamethasone yesterday * On Rocephin and azithromycin * Started on 2 L nasal cannula * C-reactive protein 14.4 * White count 5.4 Hypomagnesemia, hypokalemia -resolved * Magnesium 2.2 * Potassium 3.9 - Plan Plan:: 10/28/2019day of admission * Refer for observation secondary to borderline hypoxia and asthma placing her at much greater risk for complications. * Start azithromycin * Hold off on remdesivir secondary to not requiring supplemental oxygen * Consider dexamethasone if symptoms are not improving or requiring steroids to treat her asthma, or requiring supplemental oxygen. * Strict isolation * [place] 1 puff daily * Albuterol 2 puffs 4 times daily * Toradol and ibuprofen as needed for headache and pain. * Magnesium and potassium replacement * Procalcitonin * CBC, CMP, magnesium daily * Trend C-reactive protein and d-dimer. * VTE prophylaxis with Lovenox * CODE STATUS: Full code * Disposition: Observation and monitor oxygen saturations. If patient improves and does not need supplemental O2 estimate discharge in less than 2 days. 10/29/2019 * Refer for observation secondary to borderline hypoxia and asthma placing her at much greater risk for complications. * Continue azithromycin * Start Rocephin 2 g every 24 hours * Hold off on remdesivir secondary to not requiring supplemental oxygen * Start dexamethasone 6 mg p.o. daily. * Strict isolation * [place] 1 puff daily * Albuterol 2 puffs 4 times daily * Toradol and ibuprofen as needed for headache and pain. * Potassium chloride 40 mEq p.o. x1 * Procalcitonin * CBC, CMP, magnesium daily * Trend C-reactive protein and d-dimer. 10/30/2019 * Start remdesivir * Patient was given "fax sheet for patient's and parents/caregivers" and risks including liver disease were discussed. * Continue dexamethasone, day 2 of 10 * Continue Rocephin and azithromycin * Strict isolation * Albuterol as needed * CBC, CMP, magnesium, C-reactive protein, and d-dimer in the morning
[2019-10-30] MEDS ORDERED: REMDESIVIR (EUA) 100 MG in Sodium Chloride 0.9% 100 ML IV SCH (13:00)
--- NOTE | 2019-10-30 13:41 | CR ---
Chest: Portable view of the chest was obtained. Comparison: Prior chest x-ray of 10/28/19. Continuing increased right-sided perihilar markings are noted. Slight increasing density within the right upper lung is seen from prior study. Left lung shows no acute change. Heart size and mediastinum are normal. Bony structures are grossly intact. Impression: 1. Continuing increased right-sided perihilar markings with new area of increased density within the right upper lung. Diagnostic code #3 This report was dictated in MDT
[2019-10-30] MEDS: Melatonin 3 MG Tab PO PRN (20:11)
[2019-10-30] MEDS: Codeine/guaiFENesin 10-100 MG/5 ML Syrup 5 ML Cup PO PRN (20:11)
[2019-10-30] MEDS: Benzonatate 100 MG Cap PO PRN (20:11)
[2019-10-30] MEDS: Acetaminophen 325 MG Tab PO PRN (20:12)
[2019-10-30] MEDS: Glycopyrrolate 15.6 MCG Cap.W.Dev Kit of 6 IH SCH (20:15)
[2019-10-31] MEDS: Glycopyrrolate 15.6 MCG Cap.W.Dev Kit of 6 IH SCH ×2 (05:54→20:29)
[2019-10-31] MEDS: Albuterol 6.7 GM Inhaler INH SCH ×5 (05:55→20:29)
[2019-10-31] MEDS: Enoxaparin 40 MG/0.4 ML Syringe SUBCUT SCH ×2 (08:21→20:51)
[2019-10-31] MEDS: Dexamethasone 4 MG Tab PO SCH (08:23)
[2019-10-31] MEDS: Formoterol/Mometasone 200-5 MCG 8.8 GM Inhaler IH SCH ×2 (08:41→20:29)
[2019-10-31] MEDS: Azithromycin 500 MG in Sodium Chloride 0.9% 250 ML IV SCH (10:06)
[2019-10-31] MEDS: REMDESIVIR (EUA) 100 MG in Sodium Chloride 0.9% 100 ML IV SCH (10:06)
[2019-10-31] MEDS ORDERED: Tocilizumab 400 MG/20 ML SDV IV ONE (11:14)
[2019-10-31] MEDS: cefTRIAXone 2 GM in Sodium Chloride 0.9% 100 ML IV SCH (12:13)
--- NOTE | 2019-10-31 12:57 | PCM.PN ---
- General Info Date of Service: 10/31/19 Admission Dx/Problem (Free Text): Admission Diagnosis/Problem Admission Diagnosis/Problem Pneumonia Subjective Update: Patient feels more short of breath today, but oxygenation is unchanged or actually improved. - Review of Systems General: Reports: No Symptoms HEENT: Reports: No Symptoms Pulmonary: Reports: Shortness of Breath, Cough Cardiovascular: Reports: No Symptoms Gastrointestinal: Reports: No Symptoms Musculoskeletal: Reports: No Symptoms Neurological: Reports: No Symptoms Psychiatric: Reports: No Symptoms - Patient Data Vitals - Most Recent: Last Vital Signs Temp 96.4 F L 10/31/19 10:00 Pulse 92 10/29/19 22:00 Resp 18 10/31/19 10:00 BP 156/85 H 10/31/19 10:00 Pulse Ox 99 10/31/19 05:57 Weight - Most Recent: 144.333 kg I&O - Last 24 Hours: Intake & Output 10/30/19 10/31/19 10/31/19 22:59 06:59 14:59 Intake Total 1082 800 Balance 1082 800 Lab Results Last 24 Hours: Laboratory Results - last 24 hr 10/30/19 10/30/19 10/31/19 Range/Units 05:40 05:40 05:33 WBC 3.07 L (3.98-10.04) K/mm3 RBC 3.97 L (3.98-5.22) M/mm3 Hgb 11.5 (11.2-15.7) gm/dl Hct 36.0 (34.1-44.9) % MCV 90.7 (79.4-94.8) fl MCH 29.0 (25.6-32.2) pg MCHC 31.9 L (32.2-35.5) g/dl RDW Std Deviation 49.0 H (36.4-46.3) fL Plt Count 186 (182-369) K/mm3 MPV 10.0 (9.4-12.3) fl Neut % (Auto) 71.1 (34.0-71.1) % Lymph % (Auto) 21.8 (19.3-51.7) % Harding % (Auto) 6.5 (4.7-12.5) % Eos % (Auto) 0 L (0.7-5.8) Baso % (Auto) 0.3 (0.1-1.2) % Neut # (Auto) 2.18 (1.56-6.13) K/mm3 Lymph # (Auto) 0.67 L (1.18-3.74) K/mm3 Harding # (Auto) 0.20 L (0.24-0.36) K/mm3 Eos # (Auto) 0.00 L (0.04-0.36) K/mm3 Baso # (Auto) 0.01 (0.01-0.08) K/mm3 Manual Slide Review Not Reportable D-Dimer, Quantitative (0.19-0.50) mg/L Sodium (136-145) mEq/L Potassium (3.5-5.1) mEq/L Chloride (98-107) mEq/L Carbon Dioxide (21-32) mEq/L Anion Gap (5-15) BUN (7-18) mg/dL Creatinine (0.55-1.02) mg/dL Est Cr Clr Drug Dosing mL/min Estimated GFR (MDRD) (>60) mL/min BUN/Creatinine Ratio (14-18) Glucose (74-106) mg/dL Calcium 8.4 L (8.5-10.1) mg/dL Phosphorus 3.0 (2.6-4.7) mg/dL Magnesium (1.8-2.4) mg/dl Total Bilirubin (0.2-1.0) mg/dL AST (15-37) U/L ALT (14-59) U/L Alkaline Phosphatase (46-116) U/L C-Reactive Protein (<1.0) mg/dL Total Protein (6.4-8.2) g/dl Albumin (3.4-5.0) g/dl Globulin gm/dL Albumin/Globulin Ratio (1-2) Vitamin D 25-Hydroxy 28.8 L (30.0-100.0) ng/ml 10/31/19 10/31/19 Range/Units 05:33 05:33 WBC (3.98-10.04) K/mm3 RBC (3.98-5.22) M/mm3 Hgb (11.2-15.7) gm/dl Hct (34.1-44.9) % MCV (79.4-94.8) fl MCH (25.6-32.2) pg MCHC (32.2-35.5) g/dl RDW Std Deviation (36.4-46.3) fL Plt Count (182-369) K/mm3 MPV (9.4-12.3) fl Neut % (Auto) (34.0-71.1) % Lymph % (Auto) (19.3-51.7) % [place]ing % (Auto) (4.7-12.5) % Eos % (Auto) (0.7-5.8) Baso % (Auto) (0.1-1.2) % Neut # (Auto) (1.56-6.13) K/mm3 Lymph # (Auto) (1.18-3.74) K/mm3 Harding # (Auto) (0.24-0.36) K/mm3 Eos # (Auto) (0.04-0.36) K/mm3 Baso # (Auto) (0.01-0.08) K/mm3 Manual Slide Review D-Dimer, Quantitative 0.28 (0.19-0.50) mg/L Sodium 138 (136-145) mEq/L Potassium 4.2 (3.5-5.1) mEq/L Chloride 105 (98-107) mEq/L Carbon Dioxide 24 (21-32) mEq/L Anion Gap 13.2 (5-15) BUN 8 (7-18) mg/dL Creatinine 0.7 (0.55-1.02) mg/dL Est Cr Clr Drug Dosing 105.97 mL/min Estimated GFR (MDRD) > 60 (>60) mL/min BUN/Creatinine Ratio 11.4 L (14-18) Glucose 117 H (74-106) mg/dL Calcium 8.2 L (8.5-10.1) mg/dL Phosphorus 3.4 (2.6-4.7) mg/dL Magnesium 2.0 (1.8-2.4) mg/dl Total Bilirubin 0.1 L (0.2-1.0) mg/dL AST 64 H (15-37) U/L ALT 75 H (14-59) U/L Alkaline Phosphatase 111 (46-116) U/L C-Reactive Protein 6.2 H* (<1.0) mg/dL Total Protein 6.8 (6.4-8.2) g/dl Albumin 2.7 L (3.4-5.0) g/dl Globulin 4.1 gm/dL Albumin/Globulin Ratio 0.7 L (1-2) Vitamin D 25-Hydroxy (30.0-100.0) ng/ml Garret Results Last 24 Hours: Microbiology 10/28/19 17:00 Aerobic Blood Culture - Preliminary Blood - Venous - Lab Draw NO GROWTH AFTER 2 DAYS Anaerobic Blood Culture - Preliminary NO GROWTH AFTER 2 DAYS 10/28/19 16:45 Aerobic Blood Culture - Preliminary Blood - Venous NO GROWTH AFTER 2 DAYS Anaerobic Blood Culture - Preliminary NO GROWTH AFTER 2 DAYS Med Orders - Current: Current Medications Acetaminophen (Tylenol) 650 mg PO Q4H PRN PRN Reason: Fever Last Admin: 10/30/19 20:12 Dose: 650 mg Documented by: Albuterol (Proventil Hfa) 0 gm INH QIDRT [facility] Last Admin: 10/31/19 11:30 Dose: Not Given Documented by: Benzonatate (Tessalon Perles) 100 mg PO TID PRN PRN Reason: Cough Last Admin: 10/30/19 20:11 Dose: 100 mg Documented by: Calcium Carbonate/Glycine (Tums) 1,000 mg PO Q4H PRN PRN Reason: Indigestion Last Admin: 10/29/19 20:23 Dose: 1,000 mg Documented by: Dexamethasone (Dexamethasone) 6 mg PO DAILY [facility] Stop: 11/08/19 12:01 Last Admin: 10/31/19 08:23 Dose: 6 mg Documented by: Enoxaparin Sodium (Lovenox) 40 mg SUBCUT BID [facility] Last Admin: 10/31/19 08:21 Dose: 40 mg Documented by: Glycopyrrolate (Seebri Neohaler) 15.6 mcg IH BIDRT [facility] Last Admin: 10/31/19 05:54 Dose: 1 cap Documented by: Guaifenesin/Codeine Phosphate (Robitussin Ac) 5 ml PO Q4H PRN PRN Reason: Cough Last Admin: 10/30/19 20:11 Dose: 5 ml Documented by: Ceftriaxone Sodium 2 gm/ (Sodium Chloride) 100 mls @ 200 mls/hr IV Q24H [facility] Stop: 11/02/19 14:00 Last Admin: 10/31/19 12:13 Dose: 200 mls/hr Documented by: REMDESIVIR (EUA) 100 mg/ (Sodium Chloride) 100 mls @ 100 mls/hr IV Q24H [facility] Stop: 11/03/19 11:59 Last Admin: 10/31/19 10:06 Dose: 100 mls/hr Documented by: Tocilizumab 800 mg/ Sodium (Chloride) 100 mls @ 100 mls/hr IV ONETIME ONE Stop: 10/31/19 12:59 Last Admin: 10/31/19 12:13 Dose: 100 mls/hr Documented by: Ketorolac Tromethamine (Toradol) 30 mg IVPUSH Q6H PRN PRN Reason: Pain Stop: 11/02/19 00:31 Last Admin: 10/30/19 20:12 Dose: 30 mg Documented by: Lorazepam (Ativan) 0.5 mg IVPUSH Q4H PRN PRN Reason: Anxiety Melatonin (Melatonin) 12 mg PO BEDTIME PRN PRN Reason: insomnia Last Admin: 10/30/19 20:11 Dose: 12 mg Documented by: Mometasone Furoate/Formoterol Fumar (Dulera 200-5 Mcg) 2 puff IH BID [facility] Last Admin: 10/31/19 08:41 Dose: 2 puff Documented by: Ondansetron HCl (Zofran) 4 mg IV Q4H PRN PRN Reason: Nausea/Vomiting Sodium Chloride (Saline Flush) 10 ml FLUSH ASDIRECTED PRN PRN Reason: Keep Vein Open Discontinued Medications Acetaminophen (Tylenol) 975 mg PO ONETIME ONE Stop: 10/28/19 16:24 Last Admin: 10/28/19 17:04 Dose: 975 mg Documented by: Albuterol (Proventil Hfa) 0 gm INH QID [facility] Last Admin: 10/30/19 06:35 Dose: 1 puff Documented by: Albuterol/Ipratropium (Duoneb 3.0-0.5 Mg/3 Ml) 3 ml NEB Q4H PRN PRN Reason: Shortness Of Breath/wheezing Last Admin: 10/28/19 18:20 Dose: 3 ml Documented by: Azithromycin (Zithromax) Confirm Administered Dose 500 mg .ROUTE .STK-MED ONE Stop: 10/29/19 07:59 Last Admin: 10/29/19 08:50 Dose: Not Given Documented by: Glycopyrrolate (Seebri Neohaler) 0 mcg IH BID [facility] Last Admin: 10/29/19 20:40 Dose: 1 cap Documented by: Glycopyrrolate (Seebri Neohaler) 15.6 mcg IH BID [facility] Last Admin: 10/30/19 06:37 Dose: 1 cap Documented by: Dextrose/Sodium Chloride (Dextrose 5%-Normal Saline) 1,000 mls @ 999 mls/hr IV ASDIRECTED [facility] Last Admin: 10/28/19 17:16 Dose: 999 mls/hr Documented by: Potassium Chloride 40 meq/ (Dextrose/Lactated Ringer's) 1,020 mls @ 125 mls/hr IV ASDIRECTED [facility] Magnesium Sulfate 4 gm/ Premix 50 mls @ 12.5 mls/hr IV ONETIME ONE Stop: 10/29/19 00:11 Last Admin: 10/28/19 20:32 Dose: 12.5 mls/hr Documented by: Azithromycin 500 mg/ Sodium (Chloride) 250 mls @ 250 mls/hr IV Q24H [facility] Stop: 10/31/19 23:01 Last Admin: 10/28/19 23:02 Dose: Not Given Documented by: Azithromycin 500 mg/ Sodium (Chloride) 250 mls @ 250 mls/hr IV Q24H [facility] Stop: 11/01/19 09:01 Azithromycin 500 mg/ Sodium (Chloride) 250 mls @ 250 mls/hr IV Q24H [facility] Stop: 11/02/19 10:59 Last Admin: 10/29/19 09:24 Dose: 250 mls/hr Documented by: Azithromycin 500 mg/ Sodium (Chloride) 250 mls @ 250 mls/hr IV Q24H [facility] Stop: 10/31/19 10:59 Last Admin: 10/31/19 10:06 Dose: 250 mls/hr Documented by: REMDESIVIR (EUA) 200 mg/ (Sodium Chloride) 250 mls @ 250 mls/hr IV ONETIME ONE Stop: 10/29/19 13:59 Last Admin: 10/29/19 13:45 Dose: Not Given Documented by: REMDESIVIR (EUA) 100 mg/ (Sodium Chloride) 100 mls @ 100 mls/hr IV Q24H [facility] Stop: 11/03/19 13:01 REMDESIVIR (EUA) 200 mg/ (Sodium Chloride) 250 mls @ 250 mls/hr IV ONETIME ONE Stop: 10/30/19 11:59 Last Admin: 10/30/19 11:40 Dose: 250 mls/hr Documented by: Tocilizumab 800 mg/ Sodium (Chloride) 100 mls @ 100 mls/hr IV ONETIME ONE Stop: 10/30/19 13:59 Last Admin: 10/30/19 13:23 Dose: 100 mls/hr Documented by: Ketorolac Tromethamine (Toradol) 30 mg IVPUSH ONETIME ANA Last Admin: 10/28/19 18:23 Dose: 30 mg Documented by: Ondansetron HCl (Zofran) 4 mg IVPUSH ONETIME ONE Stop: 10/28/19 16:24 Last Admin: 10/28/19 17:15 Dose: 4 mg Documented by: Potassium Chloride (Klor-Con M20) 40 meq PO ONETIME ONE Stop: 10/28/19 19:46 Last Admin: 10/28/19 20:14 Dose: 40 meq Documented by: Potassium Chloride (Klor-Con M20) 40 meq PO ONETIME ONE Stop: 10/29/19 08:25 Last Admin: 10/29/19 09:03 Dose: 40 meq Documented by: Tocilizumab (Actemra) 800 mg IV ONETIME ONE Stop: 10/30/19 10:01 - Exam Quality Assessment: Supplemental Oxygen General: Alert, Oriented HEENT: Pupils Equal, Mucous Membr. Moist/[place] Neck: Supple Lungs: Clear to Auscultation, Normal Respiratory Effort Cardiovascular: Regular Rate, Regular Rhythm GI/Abdominal Exam: Normal Bowel Sounds, Soft, Non-Tender, No Distention, No Abnormal Bruit, No Mass Extremities: Normal Inspection, Non-Tender, No Pedal Edema, Normal Capillary Refill Peripheral Pulses: 1+: Posterior Tibial (L), Posterior Tibial (R), Dorsalis Pedis (L), Dorsalis Pedis (R) Skin: Warm, Dry, Intact Neurological: No New Focal Deficit Psy/Mental Status: Alert, Anxious Sepsis Event Note - Evaluation Sepsis Screening Result: No Definite Risk - Focused Exam Vital Signs: Vital Signs Temp Resp BP Pulse Ox Pulse Ox 10/31/19 10:00 96.4 F L 18 156/85 H 10/31/19 05:57 99 10/31/19 05:44 98.2 F 20 118/66 94 L - Problem List & Annotations (1) Asthma SNOMED Code(s): 021380602 Code(s): J45.909 - UNSPECIFIED ASTHMA, UNCOMPLICATED Status: Acute Current Visit: Yes Qualifiers: Asthma severity: moderate Asthma persistence: persistent Asthma complication type: uncomplicated Qualified Code(s): J45.40 - Moderate persistent asthma, uncomplicated (2) Hypokalemia SNOMED Code(s): 83127444 Code(s): E87.6 - HYPOKALEMIA Status: Acute Current Visit: Yes (3) Hypomagnesemia SNOMED Code(s): 697036786 Code(s): E83.42 - HYPOMAGNESEMIA Status: Acute Current Visit: Yes (4) Hypoxia SNOMED Code(s): 060258991 Code(s): R09.02 - HYPOXEMIA Status: Acute Current Visit: Yes (5) Lab test positive for detection of COVID-19 virus SNOMED Code(s): 185269371, 170247292 Code(s): U07.1 - COVID-19 Status: Acute Current Visit: Yes (6) Pneumonia SNOMED Code(s): 737875964 Code(s): J18.9 - PNEUMONIA, UNSPECIFIED ORGANISM Status: Acute Current Visit: Yes Qualifiers: Laterality: right Lung location: lower lobe of lung - Problem List Review Problem List Initiated/Reviewed/Updated: Yes - My Orders Last 24 Hours: My Active Orders 10/30/19 21:00 Glycopyrrolate [Seebri Neohaler] 15.6 mcg IH BIDRT 10/31/19 Breakfast Regular Diet [DIET] 10/31/19 11:00 Remdesivir (Eua) [Remdesivir (EUA)] 100 mg Sodium Chloride 0.9% [Normal Saline] 100 ml IV Q24H 10/31/19 11:22 LORazepam [Ativan] 0.5 mg IVPUSH Q4H PRN 10/31/19 12:00 Tocilizumab [Actemra] 800 mg Sodium Chloride 0.9% [Normal Saline] 60 ml IV ONETIME 11/01/19 05:11 C-REACTIVE PROTEIN [CHEM] AM CBC WITH AUTO DIFF [HEME] AM COMPREHENSIVE METABOLIC PN,CMP [CHEM] AM MAGNESIUM [CHEM] AM PHOSPHORUS [CHEM] AM 11/02/19 05:11 C-REACTIVE PROTEIN [CHEM] AM CBC WITH AUTO DIFF [HEME] AM COMPREHENSIVE METABOLIC PN,CMP [CHEM] AM MAGNESIUM [CHEM] AM PHOSPHORUS [CHEM] AM - Assessment Assessment:: Assessment of admission COVID positive infection * Testing done 3 days ago. * Symptoms include severe cough, shortness of breath, high fever, chills, and emesis. * Mildly hypoxic with a pulse ox in the low 90% on room air * D-dimer 0.7, C-reactive protein 17.1, negative troponin, ferritin 261, LDH 355 Pneumonia versus bronchitis right lower lobe * WBC 5 * CRP 17.1 Asthma * On Dulera at home. * Mild shortness of breath and cough. Hypomagnesemia, hypokalemia * Magnesium 1.6, potassium 3.2 10/29/2019 COVID positive * No change in C-reactive protein: 17.4 * Symptomatically she has no change. Pulse ox still in the low to mid 90s. * Not requiring FiO2 supplementation Pneumonia versus bronchitis right lower lobe * Currently on azithromycin * No change Asthma * Improvement with albuterol * Mild wheeze Hypomagnesemia, hypokalemia * Magnesium 2.2 * Potassium 3.4 10/30/2019 COVID-19 infection with worsening hypoxemia Pneumonia Asthma * Worsening oxygenation * Started dexamethasone yesterday * On Rocephin and azithromycin * Started on 2 L nasal cannula * C-reactive protein 14.4 * White count 5.4 Hypomagnesemia, hypokalemia -resolved * Magnesium 2.2 * Potassium 3.9 10/31/2019 COVID-19 infection with pneumonia Asthma * Started on 5-day course of remdesivir * Continuing on dexamethasone, Rocephin and finished azithromycin * O2 requirement from nothing to up to 2 L/min * C-reactive protein down to 6.2 * D-dimer 0.28 Elevated liver enzymes * AST 64, ALT 75. * Both improved since admission Electrolyte abnormalities resolved - Plan Plan:: of admission * Refer for observation secondary to borderline hypoxia and asthma placing her at much greater risk for complications. * Start azithromycin * Hold off on remdesivir secondary to not requiring supplemental oxygen * Consider dexamethasone if symptoms are not improving or requiring steroids to treat her asthma, or requiring supplemental oxygen. * Strict isolation * Seebri 1 puff daily * Albuterol 2 puffs 4 times daily * Toradol and ibuprofen as needed for headache and pain. * Magnesium and potassium replacement * Procalcitonin * CBC, CMP, magnesium daily * Trend C-reactive protein and d-dimer. * VTE prophylaxis with Lovenox * CODE STATUS: Full code * Disposition: Observation and monitor oxygen saturations. If patient improves and does not need supplemental O2 estimate discharge in less than 2 days. 10/29/2019 * Refer for observation secondary to borderline hypoxia and asthma placing her at much greater risk for complications. * Continue azithromycin * Start Rocephin 2 g every 24 hours * Hold off on remdesivir secondary to not requiring supplemental oxygen * Start dexamethasone 6 mg p.o. daily. * Strict isolation * Seebri 1 puff daily * Albuterol 2 puffs 4 times daily * Toradol and ibuprofen as needed for headache and pain. * Potassium chloride 40 mEq p.o. x1 * Procalcitonin * CBC, CMP, magnesium daily * Trend C-reactive protein and d-dimer. 10/30/2019 * Start remdesivir * Patient was given "fax sheet for patient's and parents/caregivers" and risks including liver disease were discussed. * Continue dexamethasone, day 2 of 10 * Continue Rocephin and azithromycin * Strict isolation * Albuterol as needed * CBC, CMP, magnesium, C-reactive protein, and d-dimer in the morning 10/31/2019 * Continue current treatment of remdesivir, dexamethasone, and Rocephin. * Adjust FiO2 to keep SPO2 between 88 and 95% * Anticipated discharge in 4 days. * Recheck CBC, CMP, magnesium, and CRP tomorrow
[2019-10-31] MEDS: LORazepam 2 MG/ML SDV IVPUSH PRN (14:29)
[2019-10-31] MEDS: Benzonatate 100 MG Cap PO PRN (20:51)
[2019-10-31] MEDS: Melatonin 3 MG Tab PO PRN (20:51)
[2019-11-01] MEDS: Sodium Chloride 0.9% 10 ML Syringe FLUSH PRN (03:50)
[2019-11-01] MEDS: LORazepam 2 MG/ML SDV IVPUSH PRN (03:51)
[2019-11-01] MEDS: Albuterol 6.7 GM Inhaler INH SCH ×4 (05:47→20:10)
[2019-11-01] MEDS: Glycopyrrolate 15.6 MCG Cap.W.Dev Kit of 6 IH SCH ×2 (05:47→20:09)
[2019-11-01] MEDS: Dexamethasone 4 MG Tab PO SCH (08:40)
[2019-11-01] MEDS: Famotidine 20 MG Tab PO SCH ×2 (08:40→20:59)
[2019-11-01] MEDS: Enoxaparin 40 MG/0.4 ML Syringe SUBCUT SCH ×2 (08:41→20:59)
[2019-11-01] MEDS: Formoterol/Mometasone 200-5 MCG 8.8 GM Inhaler IH SCH ×2 (09:02→20:09)
[2019-11-01] MEDS: REMDESIVIR (EUA) 100 MG in Sodium Chloride 0.9% 100 ML IV SCH (10:48)
[2019-11-01] MEDS: cefTRIAXone 2 GM in Sodium Chloride 0.9% 100 ML IV SCH (12:09)
[2019-11-01] MEDS ORDERED: Sodium Chloride 0.9% 250 ML IV SCH (14:45)
--- NOTE | 2019-11-01 16:14 | PCM.PN ---
- General Info Date of Service: 11/01/19 Admission Dx/Problem (Free Text): Admission Diagnosis/Problem Admission Diagnosis/Problem Pneumonia Subjective Update: Patient continues to be short of breath. She is up to 3 L nasal cannula O2. She is currently on remdesivir and dexamethasone. She received 2 doses of Actemra. Functional Status: Reports: Pain Controlled - Review of Systems General: Reports: No Symptoms Pulmonary: Reports: Shortness of Breath, Cough, Wheezing Cardiovascular: Reports: No Symptoms Gastrointestinal: Reports: No Symptoms Musculoskeletal: Reports: No Symptoms Neurological: Reports: No Symptoms - Patient Data Vitals - Most Recent: Last Vital Signs Temp 96.8 F L 11/01/19 15:47 Pulse 68 11/01/19 15:47 Resp 20 11/01/19 15:47 BP 151/100 H 11/01/19 15:47 Pulse Ox 92 L 11/01/19 09:02 Weight - Most Recent: 141.521 kg I&O - Last 24 Hours: Intake & Output 11/01/19 11/01/19 11/01/19 06:59 14:59 22:59 Intake Total 1000 0 Balance 1000 0 Lab Results Last 24 Hours: Laboratory Results - last 24 hr 11/01/19 11/01/19 11/01/19 Range/Units 05:38 05:38 05:38 WBC 2.25 L* (3.98-10.04) K/mm3 RBC 4.05 (3.98-5.22) M/mm3 Hgb 11.8 (11.2-15.7) gm/dl Hct 36.7 (34.1-44.9) % MCV 90.6 (79.4-94.8) fl MCH 29.1 (25.6-32.2) pg MCHC 32.2 (32.2-35.5) g/dl RDW Std Deviation 48.8 H (36.4-46.3) fL Plt Count 205 (182-369) K/mm3 MPV 9.4 (9.4-12.3) fl Neut % (Auto) 52.9 (34.0-71.1) % Lymph % (Auto) 34.7 (19.3-51.7) % [place] % (Auto) 10.7 (4.7-12.5) % Eos % (Auto) 0 L (0.7-5.8) Baso % (Auto) 0.4 (0.1-1.2) % Neut # (Auto) 1.19 L (1.56-6.13) K/mm3 Lymph # (Auto) 0.78 L (1.18-3.74) K/mm3 [place] # (Auto) 0.24 (0.24-0.36) K/mm3 Eos # (Auto) 0.00 L (0.04-0.36) K/mm3 Baso # (Auto) 0.01 (0.01-0.08) K/mm3 Manual Slide Review Abnormal smear Sodium 139 (136-145) mEq/L Potassium 3.8 (3.5-5.1) mEq/L Chloride 104 (98-107) mEq/L Carbon Dioxide 26 (21-32) mEq/L Anion Gap 12.8 (5-15) BUN 10 (7-18) mg/dL Creatinine 0.7 (0.55-1.02) mg/dL Est Cr Clr Drug Dosing 105.97 mL/min Estimated GFR (MDRD) > 60 (>60) mL/min BUN/Creatinine Ratio 14.3 (14-18) Glucose 105 (74-106) mg/dL Calcium 8.1 L (8.5-10.1) mg/dL Magnesium 2.0 (1.8-2.4) mg/dl Total Bilirubin 0.2 (0.2-1.0) mg/dL AST 56 H (15-37) U/L ALT 72 H (14-59) U/L Alkaline Phosphatase 104 (46-116) U/L C-Reactive Protein 2.9 H* (<1.0) mg/dL Total Protein 6.7 (6.4-8.2) g/dl Albumin 2.8 L (3.4-5.0) g/dl Globulin 3.9 gm/dL Albumin/Globulin Ratio 0.7 L (1-2) Blood Type O POSITIVE Garret Results Last 24 Hours: Microbiology 10/28/19 17:00 Aerobic Blood Culture - Preliminary Blood - Venous - Lab Draw NO GROWTH AFTER 3 DAYS Anaerobic Blood Culture - Preliminary NO GROWTH AFTER 3 DAYS 10/28/19 16:45 Aerobic Blood Culture - Preliminary Blood - Venous NO GROWTH AFTER 3 DAYS Anaerobic Blood Culture - Preliminary NO GROWTH AFTER 3 DAYS Med Orders - Current: Current Medications Acetaminophen (Tylenol) 650 mg PO Q4H PRN PRN Reason: Fever Last Admin: 10/30/19 20:12 Dose: 650 mg Documented by: Albuterol (Proventil Hfa) 0 gm INH QIDRT [facility] Last Admin: 11/01/19 09:02 Dose: 1 puff Documented by: Benzonatate (Tessalon Perles) 100 mg PO TID PRN PRN Reason: Cough Last Admin: 10/31/19 20:51 Dose: 100 mg Documented by: Calcium Carbonate/Glycine (Tums) 1,000 mg PO Q4H PRN PRN Reason: Indigestion Last Admin: 10/29/19 20:23 Dose: 1,000 mg Documented by: Dexamethasone (Dexamethasone) 6 mg PO DAILY [facility] Stop: 11/08/19 12:01 Last Admin: 11/01/19 08:40 Dose: 6 mg Documented by: Enoxaparin Sodium (Lovenox) 40 mg SUBCUT BID [facility] Last Admin: 11/01/19 08:41 Dose: 40 mg Documented by: Famotidine (Pepcid) 20 mg PO BID [facility] Last Admin: 11/01/19 08:40 Dose: 20 mg Documented by: Glycopyrrolate (Seebri Neohaler) 15.6 mcg IH BIDRT [facility] Last Admin: 11/01/19 05:47 Dose: 1 cap Documented by: Guaifenesin/Codeine Phosphate (Robitussin Ac) 5 ml PO Q4H PRN PRN Reason: Cough Last Admin: 10/30/19 20:11 Dose: 5 ml Documented by: Ceftriaxone Sodium 2 gm/ (Sodium Chloride) 100 mls @ 200 mls/hr IV Q24H [facility] Stop: 11/02/19 14:00 Last Admin: 11/01/19 12:09 Dose: 200 mls/hr Documented by: REMDESIVIR (EUA) 100 mg/ (Sodium Chloride) 100 mls @ 100 mls/hr IV Q24H [facility] Stop: 11/03/19 11:59 Last Admin: 11/01/19 10:48 Dose: 100 mls/hr Documented by: Sodium Chloride (Normal Saline) 250 mls @ 10 mls/hr IV ASDIRECTED [facility] Ketorolac Tromethamine (Toradol) 30 mg IVPUSH Q6H PRN PRN Reason: Pain Stop: 11/02/19 00:31 Last Admin: 10/30/19 20:12 Dose: 30 mg Documented by: Lorazepam (Ativan) 0.5 mg IVPUSH Q4H PRN PRN Reason: Anxiety Last Admin: 11/01/19 03:51 Dose: 0.5 mg Documented by: Melatonin (Melatonin) 12 mg PO BEDTIME PRN PRN Reason: insomnia Last Admin: 10/31/19 20:51 Dose: 12 mg Documented by: Mometasone Furoate/Formoterol Fumar (Dulera 200-5 Mcg) 2 puff IH BID [facility] Last Admin: 11/01/19 09:02 Dose: 2 puff Documented by: Ondansetron HCl (Zofran) 4 mg IV Q4H PRN PRN Reason: Nausea/Vomiting Sodium Chloride (Saline Flush) 10 ml FLUSH ASDIRECTED PRN PRN Reason: Keep Vein Open Last Admin: 11/01/19 03:50 Dose: 10 ml Documented by: Discontinued Medications Acetaminophen (Tylenol) 975 mg PO ONETIME ONE Stop: 10/28/19 16:24 Last Admin: 10/28/19 17:04 Dose: 975 mg Documented by: Albuterol (Proventil Hfa) 0 gm INH QID [facility] Last Admin: 10/30/19 06:35 Dose: 1 puff Documented by: Albuterol/Ipratropium (Duoneb 3.0-0.5 Mg/3 Ml) 3 ml NEB Q4H PRN PRN Reason: Shortness Of Breath/wheezing Last Admin: 10/28/19 18:20 Dose: 3 ml Documented by: Azithromycin (Zithromax) Confirm Administered Dose 500 mg .ROUTE .STK-MED ONE Stop: 10/29/19 07:59 Last Admin: 10/29/19 08:50 Dose: Not Given Documented by: Glycopyrrolate (Seebri Neohaler) 0 mcg IH BID [facility] Last Admin: 10/29/19 20:40 Dose: 1 cap Documented by: Glycopyrrolate (Seebri Neohaler) 15.6 mcg IH BID [facility] Last Admin: 10/30/19 06:37 Dose: 1 cap Documented by: Dextrose/Sodium Chloride (Dextrose 5%-Normal Saline) 1,000 mls @ 999 mls/hr IV ASDIRECTED [facility] Last Admin: 10/28/19 17:16 Dose: 999 mls/hr Documented by: Potassium Chloride 40 meq/ (Dextrose/Lactated Ringer's) 1,020 mls @ 125 mls/hr IV ASDIRECTED [facility] Magnesium Sulfate 4 gm/ Premix 50 mls @ 12.5 mls/hr IV ONETIME ONE Stop: 10/29/19 00:11 Last Admin: 10/28/19 20:32 Dose: 12.5 mls/hr Documented by: Azithromycin 500 mg/ Sodium (Chloride) 250 mls @ 250 mls/hr IV Q24H [facility] Stop: 10/31/19 23:01 Last Admin: 10/28/19 23:02 Dose: Not Given Documented by: Azithromycin 500 mg/ Sodium (Chloride) 250 mls @ 250 mls/hr IV Q24H [facility] Stop: 11/01/19 09:01 Azithromycin 500 mg/ Sodium (Chloride) 250 mls @ 250 mls/hr IV Q24H [facility] Stop: 11/02/19 10:59 Last Admin: 10/29/19 09:24 Dose: 250 mls/hr Documented by: Azithromycin 500 mg/ Sodium (Chloride) 250 mls @ 250 mls/hr IV Q24H [facility] Stop: 10/31/19 10:59 Last Admin: 10/31/19 10:06 Dose: 250 mls/hr Documented by: REMDESIVIR (EUA) 200 mg/ (Sodium Chloride) 250 mls @ 250 mls/hr IV ONETIME ONE Stop: 10/29/19 13:59 Last Admin: 10/29/19 13:45 Dose: Not Given Documented by: REMDESIVIR (EUA) 100 mg/ (Sodium Chloride) 100 mls @ 100 mls/hr IV Q24H [facility] Stop: 11/03/19 13:01 REMDESIVIR (EUA) 200 mg/ (Sodium Chloride) 250 mls @ 250 mls/hr IV ONETIME ONE Stop: 10/30/19 11:59 Last Admin: 10/30/19 11:40 Dose: 250 mls/hr Documented by: Tocilizumab 800 mg/ Sodium (Chloride) 100 mls @ 100 mls/hr IV ONETIME ONE Stop: 10/30/19 13:59 Last Admin: 10/30/19 13:23 Dose: 100 mls/hr Documented by: Tocilizumab 800 mg/ Sodium (Chloride) 100 mls @ 100 mls/hr IV ONETIME ONE Stop: 10/31/19 12:59 Last Admin: 10/31/19 12:13 Dose: 100 mls/hr Documented by: Ketorolac Tromethamine (Toradol) 30 mg IVPUSH ONETIME ANA Last Admin: 10/28/19 18:23 Dose: 30 mg Documented by: Ondansetron HCl (Zofran) 4 mg IVPUSH ONETIME ONE Stop: 10/28/19 16:24 Last Admin: 10/28/19 17:15 Dose: 4 mg Documented by: Potassium Chloride (Klor-Con M20) 40 meq PO ONETIME ONE Stop: 10/28/19 19:46 Last Admin: 10/28/19 20:14 Dose: 40 meq Documented by: Potassium Chloride (Klor-Con M20) 40 meq PO ONETIME ONE Stop: 10/29/19 08:25 Last Admin: 10/29/19 09:03 Dose: 40 meq Documented by: Tocilizumab (Actemra) 800 mg IV ONETIME ONE Stop: 10/30/19 10:01 - Exam Quality Assessment: Supplemental Oxygen General: Alert, Oriented HEENT: Pupils Equal, Mucous Membr. Moist/[place] Neck: Supple Lungs: Normal Respiratory Effort, Wheezing Cardiovascular: Regular Rate, Regular Rhythm GI/Abdominal Exam: Normal Bowel Sounds, Soft, Non-Tender, No Distention Extremities: Normal Inspection, Normal Range of Motion, Non-Tender, No Pedal Edema Skin: Warm, Dry, Intact Psy/Mental Status: Alert, Normal Affect, Normal Mood Sepsis Event Note - Evaluation Sepsis Screening Result: Sepsis Risk - Focused Exam Vital Signs: Vital Signs Temp Temp Pulse Resp BP Pulse Ox Pulse Ox 11/01/19 15:47 96.8 F L 68 20 151/100 H 11/01/19 15:34 96.4 F L 91 20 145/98 H 11/01/19 10:00 97.3 F 20 130/76 11/01/19 09:02 11/01/19 06:00 97 11/01/19 05:48 96 11/01/19 05:00 93 L Pulse Ox 11/01/19 15:47 11/01/19 15:34 11/01/19 10:00 11/01/19 09:02 92 L 11/01/19 06:00 11/01/19 05:48 11/01/19 05:00 - Problem List & Annotations (1) Asthma SNOMED Code(s): 127398050 Code(s): J45.909 - UNSPECIFIED ASTHMA, UNCOMPLICATED Status: Acute Current Visit: Yes Qualifiers: Asthma severity: moderate Asthma persistence: persistent Asthma complication type: uncomplicated Qualified Code(s): J45.40 - Moderate persistent asthma, uncomplicated (2) Hypokalemia SNOMED Code(s): 29931515 Code(s): E87.6 - HYPOKALEMIA Status: Acute Current Visit: Yes (3) Hypomagnesemia SNOMED Code(s): 286021719 Code(s): E83.42 - HYPOMAGNESEMIA Status: Acute Current Visit: Yes (4) Hypoxia SNOMED Code(s): 968801011 Code(s): R09.02 - HYPOXEMIA Status: Acute Current Visit: Yes (5) Lab test positive for detection of COVID-19 virus SNOMED Code(s): 636889199, 825895063 Code(s): U07.1 - COVID-19 Status: Acute Current Visit: Yes (6) Pneumonia SNOMED Code(s): 566690965 Code(s): J18.9 - PNEUMONIA, UNSPECIFIED ORGANISM Status: Acute Current Visit: Yes Qualifiers: Laterality: right Lung location: lower lobe of lung - Problem List Review Problem List Initiated/Reviewed/Updated: Yes - My Orders Last 24 Hours: My Active Orders 11/01/19 05:38 ABO/RH TYPE [BBK] Routine FRESH FROZEN PLASMA [BBK] Routine 11/01/19 09:00 Famotidine [Pepcid] 20 mg PO BID 11/01/19 10:54 Verify Patient Consent Obtain [RC] ASDIRECTED Transfuse Fresh Frozen Plasma [COMM] Routine 11/01/19 14:45 Sodium Chloride 0.9% [Normal Saline] 250 ml IV ASDIRECTED 11/02/19 05:11 C-REACTIVE PROTEIN [CHEM] AM CBC WITH AUTO DIFF [HEME] AM COMPREHENSIVE METABOLIC PN,CMP [CHEM] AM MAGNESIUM [CHEM] AM - Assessment Assessment:: Assessment of admission COVID positive infection * Testing done 3 days ago. * Symptoms include severe cough, shortness of breath, high fever, chills, and emesis. * Mildly hypoxic with a pulse ox in the low 90% on room air * D-dimer 0.7, C-reactive protein 17.1, negative troponin, ferritin 261, LDH 355 Pneumonia versus bronchitis right lower lobe * WBC 5 * CRP 17.1 Asthma * On Dulera at home. * Mild shortness of breath and cough. Hypomagnesemia, hypokalemia * Magnesium 1.6, potassium 3.2 10/29/2019 COVID positive * No change in C-reactive protein: 17.4 * Symptomatically she has no change. Pulse ox still in the low to mid 90s. * Not requiring FiO2 supplementation Pneumonia versus bronchitis right lower lobe * Currently on azithromycin * No change Asthma * Improvement with albuterol * Mild wheeze Hypomagnesemia, hypokalemia * Magnesium 2.2 * Potassium 3.4 10/30/2019 COVID-19 infection with worsening hypoxemia Pneumonia Asthma * Worsening oxygenation * Started dexamethasone yesterday * On Rocephin and azithromycin * Started on 2 L nasal cannula * C-reactive protein 14.4 * White count 5.4 Hypomagnesemia, hypokalemia -resolved * Magnesium 2.2 * Potassium 3.9 10/31/2019 COVID-19 infection with pneumonia Asthma * Started on 5-day course of remdesivir * Continuing on dexamethasone, Rocephin and finished azithromycin * O2 requirement from nothing to up to 2 L/min * C-reactive protein down to 6.2 * D-dimer 0.28 Elevated liver enzymes * AST 64, ALT 75. * Both improved since admission Electrolyte abnormalities resolved 11/01/2019 Severe COVID-19 infection with pneumonia Asthma * Oxygen requirement increasing. Currently on 3 L. * Treated with remdesivir, dexamethasone, Rocephin, and azithromycin. * C-reactive protein is down to 2.9. * Expiratory wheeze noted. Asthma exacerbation may be worsening oxygenation. Concern for cytokine storm remains. Elevated liver enzymes * ALT 114, alk phos 49. * Continue to monitor because of remdesivir. - Plan Plan:: 10/28/2019day of admission * Refer for observation secondary to borderline hypoxia and asthma placing her at much greater risk for complications. * Start azithromycin * Hold off on remdesivir secondary to not requiring supplemental oxygen * Consider dexamethasone if symptoms are not improving or requiring steroids to treat her asthma, or requiring supplemental oxygen. * Strict isolation * Seebri 1 puff daily * Albuterol 2 puffs 4 times daily * Toradol and ibuprofen as needed for headache and pain. * Magnesium and potassium replacement * Procalcitonin * CBC, CMP, magnesium daily * Trend C-reactive protein and d-dimer. * VTE prophylaxis with Lovenox * CODE STATUS: Full code * Disposition: Observation and monitor oxygen saturations. If patient improves and does not need supplemental O2 estimate discharge in less than 2 days. 10/29/2019 * Refer for observation secondary to borderline hypoxia and asthma placing her at much greater risk for complications. * Continue azithromycin * Start Rocephin 2 g every 24 hours * Hold off on remdesivir secondary to not requiring supplemental oxygen * Start dexamethasone 6 mg p.o. daily. * Strict isolation * Seebri 1 puff daily * Albuterol 2 puffs 4 times daily * Toradol and ibuprofen as needed for headache and pain. * Potassium chloride 40 mEq p.o. x1 * Procalcitonin * CBC, CMP, magnesium daily * Trend C-reactive protein and d-dimer. 10/30/2019 * Start remdesivir * Patient was given "fax sheet for patient's and parents/caregivers" and risks including liver disease were discussed. * Continue dexamethasone, day 2 of 10 * Continue Rocephin and azithromycin * Strict isolation * Albuterol as needed * CBC, CMP, magnesium, C-reactive protein, and d-dimer in the morning 10/31/2019 * Continue current treatment of remdesivir, dexamethasone, and Rocephin. * Adjust FiO2 to keep SPO2 between 88 and 95% * Anticipated discharge in 4 days. * Recheck CBC, CMP, magnesium, and CRP tomorrow 11/01/2019 * Continue remdesivir, dexamethasone, and Rocephin * Start convalescent plasma. 2 units have been ordered, but only one is available today and the other will be given tomorrow. * Continue following CBC, CMP, magnesium, and C-reactive protein. * Get chest x-ray tomorrow.
[2019-11-01] MEDS: Cholecalciferol (Vitamin D3) 5,000 UNIT Tab PO SCH (17:10)
[2019-11-01] MEDS: Codeine/guaiFENesin 10-100 MG/5 ML Syrup 5 ML Cup PO PRN ×2 (17:10→20:59)
[2019-11-01] MEDS: Benzonatate 100 MG Cap PO PRN (17:10)
[2019-11-01] MEDS ORDERED: Melatonin 3 MG Tab PO PRN (21:00)
[2019-11-02] MEDS: LORazepam 2 MG/ML SDV IVPUSH PRN ×3 (01:26→23:47)
[2019-11-02] MEDS: Sodium Chloride 0.9% 10 ML Syringe FLUSH PRN (01:31)
[2019-11-02] MEDS: Albuterol 6.7 GM Inhaler INH SCH ×4 (05:50→20:08)
[2019-11-02] MEDS: Glycopyrrolate 15.6 MCG Cap.W.Dev Kit of 6 IH SCH ×2 (05:51→20:08)
--- NOTE | 2019-11-02 08:26 | CR ---
Chest: Portable view of the chest was obtained. Comparison: Prior chest x-ray of 10/30/19. Increased density on both sides of the chest, worse on the right side. Findings have somewhat increased in prominence from previous exam. Heart size and mediastinum are normal. Bony structures are grossly intact. Impression: 1. Worsening chest x-ray from previous study. Diagnostic code #5 This report was dictated in MDT
[2019-11-02] MEDS: Codeine/guaiFENesin 10-100 MG/5 ML Syrup 5 ML Cup PO PRN ×2 (08:35→21:22)
[2019-11-02] MEDS: Cholecalciferol (Vitamin D3) 5,000 UNIT Tab PO SCH (08:35)
[2019-11-02] MEDS: Dexamethasone 4 MG Tab PO SCH (08:35)
[2019-11-02] MEDS: Enoxaparin 40 MG/0.4 ML Syringe SUBCUT SCH ×2 (08:36→21:21)
[2019-11-02] MEDS: Famotidine 20 MG Tab PO SCH ×2 (08:36→21:21)
[2019-11-02] MEDS: Benzonatate 100 MG Cap PO PRN ×2 (08:36→21:22)
[2019-11-02] MEDS: Formoterol/Mometasone 200-5 MCG 8.8 GM Inhaler IH SCH ×2 (09:01→20:08)
[2019-11-02] MEDS ORDERED: Calcium Polycarbophil 625 MG Tab PO PRN (10:39)
[2019-11-02] MEDS: REMDESIVIR (EUA) 100 MG in Sodium Chloride 0.9% 100 ML IV SCH (10:58)
[2019-11-02] MEDS ORDERED: Sodium Chloride 0.9% 250 ML ONE (11:04)
[2019-11-02] MEDS: Bismuth Subsalicylate 262 MG/15 ML Susp 236 ML Bottle PO SCH ×2 (12:30→17:41)
[2019-11-02] MEDS: Simethicone 80 MG Tab.Chew PO SCH ×3 (12:31→23:48)
[2019-11-02] MEDS: cefTRIAXone 2 GM in Sodium Chloride 0.9% 100 ML IV SCH (12:33)
--- NOTE | 2019-11-02 14:15 | PCM.PN ---
- General Info Date of Service: 11/02/19 Subjective Update: Slept OK Decreased appetite Having abdominal discomfort and diarrhea Nursing reporting depression symptoms like anhedonia and decreased interest - Patient Data Vitals - Most Recent: Last Vital Signs Temp 97 F 11/02/19 08:33 Pulse 70 11/01/19 15:48 Resp 22 H 11/02/19 08:42 BP 107/76 11/02/19 08:33 Pulse Ox 92 L 11/02/19 08:42 Weight - Most Recent: 140.16 kg - Exam General: Alert, Oriented, Cooperative, No Acute Distress HEENT: Pupils Equal, Pupils Reactive, EOMI, Mucous Membr. Moist/[place] Neck: Supple Lungs: Decreased Breath Sounds. No: Crackles, Rales, Rhonchi, Rub, Stridor, Wheezing Cardiovascular: Regular Rate, Regular Rhythm. No: Murmurs, Gallops, Rubs GI/Abdominal Exam: Soft, Distended, Tender (generalized discomfort), Abnormal Bowel Sounds (increased intensity and frequency). No: Guarding, Rigid Extremities: Normal Inspection, No Pedal Edema, Normal Capillary Refill Peripheral Pulses: 2+: Radial (L), Radial (R) Skin: Warm, Dry Neurological: No New Focal Deficit Psy/Mental Status: Depressed (and anhedonic) Sepsis Event Note - Evaluation Sepsis Screening Result: Sepsis Risk - Problem List & Annotations (1) Asthma SNOMED Code(s): 824140551 Code(s): J45.909 - UNSPECIFIED ASTHMA, UNCOMPLICATED Status: Acute Qualifiers: Asthma severity: moderate Asthma persistence: persistent Asthma complication type: uncomplicated Qualified Code(s): J45.40 - Moderate persistent asthma, uncomplicated (2) Hypokalemia SNOMED Code(s): 20874306 Code(s): E87.6 - HYPOKALEMIA Status: Acute (3) Hypomagnesemia SNOMED Code(s): 188386408 Code(s): E83.42 - HYPOMAGNESEMIA Status: Acute (4) Hypoxia SNOMED Code(s): 567764449 Code(s): R09.02 - HYPOXEMIA Status: Acute (5) Pneumonia SNOMED Code(s): 135748625 Code(s): J18.9 - PNEUMONIA, UNSPECIFIED ORGANISM Status: Acute Qualifiers: Laterality: right Lung location: lower lobe of lung (6) Leukopenia SNOMED Code(s): 98086389, 064073206 Code(s): D72.819 - DECREASED WHITE BLOOD CELL COUNT, UNSPECIFIED Status: Acute (7) Acute hypoxemic respiratory failure due to COVID-19 SNOMED Code(s): 822178534 Code(s): U07.1 - COVID-19; J96.01 - ACUTE RESPIRATORY FAILURE WITH HYPOXIA Status: Acute (8) Obstructive sleep apnea SNOMED Code(s): 72958974 Code(s): G47.33 - OBSTRUCTIVE SLEEP APNEA (ADULT) (PEDIATRIC) Status: Acute (9) Acute depression SNOMED Code(s): 499334306 Code(s): F32.9 - MAJOR DEPRESSIVE DISORDER, SINGLE EPISODE, UNSPECIFIED Status: Acute - Problem List Review Problem List Initiated/Reviewed/Updated: Yes - Assessment Assessment:: 10/28/2019day of admission COVID positive infection - Testing done 3 days ago. - Symptoms include severe cough, shortness of breath, high fever, chills, and emesis. - Mildly hypoxic with a pulse ox in the low 90% on room air - D-dimer 0.7, C-reactive protein 17.1, negative troponin, ferritin 261, LDH 355 Pneumonia versus bronchitis right lower lobe - WBC 5 - CRP 17.1 Asthma - On Dulera at home. - Mild shortness of breath and cough. Hypomagnesemia, hypokalemia - Magnesium 1.6, potassium 3.2 PLAN - Refer for observation secondary to borderline hypoxia and asthma placing her at much greater risk for complications. - Start azithromycin - Hold off on remdesivir secondary to not requiring supplemental oxygen - Consider dexamethasone if symptoms are not improving or requiring steroids to treat her asthma, or requiring supplemental oxygen. - Strict isolation - Seebri 1 puff daily - Albuterol 2 puffs 4 times daily - Toradol and ibuprofen as needed for headache and pain. - Magnesium and potassium replacement - Procalcitonin - CBC, CMP, magnesium daily - Trend C-reactive protein and d-dimer. 10/29/2019 COVID positive - No change in C-reactive protein: 17.4 - Symptomatically she has no change. Pulse ox still in the low to mid 90s. - Not requiring FiO2 supplementation Pneumonia versus bronchitis right lower lobe - Currently on azithromycin - No change Asthma - Improvement with albuterol - Mild wheeze Hypomagnesemia, hypokalemia - Magnesium 2.2 - Potassium 3.4 PLAN - Continue azithromycin - Start Rocephin 2 g every 24 hours - Hold off on remdesivir secondary to not requiring supplemental oxygen - Start dexamethasone 6 mg p.o. daily. - Strict isolation - Seebri 1 puff daily - Albuterol 2 puffs 4 times daily - Toradol and ibuprofen as needed for headache and pain. - Potassium chloride 40 mEq p.o. x1 10/30/2019 COVID-19 infection with worsening hypoxemia Pneumonia Asthma - Worsening oxygenation - Started dexamethasone yesterday - On Rocephin and azithromycin - Started on 2 L nasal cannula - C-reactive protein 14.4 - White count 5.4 Hypomagnesemia, hypokalemia -resolved - Magnesium 2.2 - Potassium 3.9 PLAN - Start remdesivir - Patient was given "fax sheet for patient's and parents/caregivers" and risks including liver disease were discussed. - Continue dexamethasone, day 2 of 10 - Continue Rocephin and azithromycin - Strict isolation - Albuterol as needed - CBC, CMP, magnesium, C-reactive protein, and d-dimer in the morning 10/31/2019 COVID-19 infection with pneumonia Asthma - Started on 5-day course of remdesivir - Continuing on dexamethasone, Rocephin and finished azithromycin - O2 requirement from nothing to up to 2 L/min - C-reactive protein down to 6.2 - D-dimer 0.28 Elevated liver enzymes - AST 64, ALT 75. - Both improved since admission Electrolyte abnormalities resolved PLAN - Continue current treatment of remdesivir, dexamethasone, and Rocephin. - Adjust FiO2 to keep SPO2 between 88 and 95% - Anticipated discharge in 4 days. - Recheck CBC, CMP, magnesium, and CRP tomorrow 11/01/2019 Severe COVID-19 infection with pneumonia Asthma - Oxygen requirement increasing. Currently on 3 L. - Treated with remdesivir, dexamethasone, Rocephin, and azithromycin. - C-reactive protein is down to 2.9. - Expiratory wheeze noted. Asthma exacerbation may be worsening oxygenation. Concern for cytokine storm remains. Elevated liver enzymes - ALT 114, alk phos 49. - Continue to monitor because of remdesivir. PLAN - Continue remdesivir, dexamethasone, and Rocephin - Start convalescent plasma. 2 units have been ordered, but only one is available today and the other will be given tomorrow. - Continue following CBC, CMP, magnesium, and C-reactive protein. - Get chest x-ray tomorrow. 11/02/2019 BM today, loose Not eating most of his diet Continues to require higher and higher FiO2 Refusing high protein jelly Complaining of diarrhea dn abdominal distention CXR with worsening infiltrates VS trend - MAP: 94-117 - HR 63-82 - Tmax 97.3 - SatO2 > 88% Lab results - WBC up from 2.25 to 2.6 - CRP down from 2.9 to 1.6 - Plan Plan:: Pneumonia 2/2 COVID Acute hypoxemic respiratory failure Obstructive sleep apnea Asthma Leukopenia - Rocephin day 5 - Remdesivir day 4 - Dexamethasone day 4 - Continue O2 supplementation - Continue CPAP while sleeping Acute depression - Encourage mobility and patient to get out of bed Hypokalemia, resolved Hypomagnesemia, resolved PROPHYLAXIS DVT- Lovenox GI-not indicated CODE STATUS: FULL CODE DISPOSITION: Patient will remain admitted for COVID therapy and wean off O2 supplementation.
[2019-11-03] MEDS: Bismuth Subsalicylate 262 MG/15 ML Susp 236 ML Bottle PO SCH ×2 (02:36→07:09)
[2019-11-03] MEDS ORDERED: Sodium Chloride 0.9% Inhalation Soln 3 ML Neb INH SCH (05:00)
[2019-11-03] MEDS: Simethicone 80 MG Tab.Chew PO SCH ×3 (05:00→17:13)
[2019-11-03] MEDS: Glycopyrrolate 15.6 MCG Cap.W.Dev Kit of 6 IH SCH ×2 (06:03→20:15)
[2019-11-03] MEDS: Albuterol 6.7 GM Inhaler INH SCH ×4 (06:03→20:15)
[2019-11-03] MEDS ORDERED: Bismuth Subsalicylate 262 MG/15 ML Susp 236 ML Bottle PO PRN (07:44)
[2019-11-03] MEDS: Cholecalciferol (Vitamin D3) 5,000 UNIT Tab PO SCH (08:32)
[2019-11-03] MEDS: Dexamethasone 4 MG Tab PO SCH (08:32)
[2019-11-03] MEDS: Famotidine 20 MG Tab PO SCH ×2 (08:32→21:24)
[2019-11-03] MEDS: Enoxaparin 40 MG/0.4 ML Syringe SUBCUT SCH ×2 (08:32→21:24)
[2019-11-03] MEDS: Formoterol/Mometasone 200-5 MCG 8.8 GM Inhaler IH SCH ×2 (08:33→20:15)
[2019-11-03] MEDS: REMDESIVIR (EUA) 100 MG in Sodium Chloride 0.9% 100 ML IV SCH (10:56)
--- NOTE | 2019-11-03 20:31 | PCM.PN ---
- General Info Date of Service: 11/03/19 Subjective Update: BM today Not eating No improvement as per patient - Patient Data Vitals - Most Recent: Last Vital Signs Temp 97.9 F 11/03/19 11:12 Pulse 82 11/03/19 11:12 Resp 20 11/03/19 11:12 BP 106/76 11/03/19 11:12 Pulse Ox 89 L 11/03/19 20:17 Weight - Most Recent: 137.212 kg - Exam Quality Assessment: Supplemental Oxygen General: Alert, Oriented, Cooperative, Moderate Distress HEENT: Pupils Equal, Pupils Reactive, EOMI, Mucous Membr. Moist/[place] Neck: Supple. No: Lymphadenopathy Lungs: Decreased Breath Sounds, Crackles. No: Rales, Rhonchi, Rub, Stridor, Wheezing Cardiovascular: Regular Rate, Regular Rhythm. No: Murmurs, Gallops, Rubs GI/Abdominal Exam: Distended. No: Guarding, Rigid, Rebound, Tender Extremities: Normal Inspection, Pedal Edema, Slow Capillary Refill Peripheral Pulses: 2+: Radial (L), Radial (R) Psy/Mental Status: Depressed Sepsis Event Note - Evaluation Sepsis Screening Result: No Definite Risk - Problem List & Annotations (1) Asthma SNOMED Code(s): 161401428 Code(s): J45.909 - UNSPECIFIED ASTHMA, UNCOMPLICATED Status: Acute Qualifiers: Asthma severity: moderate Asthma persistence: persistent Asthma complication type: uncomplicated Qualified Code(s): J45.40 - Moderate persistent asthma, uncomplicated (2) Hypokalemia SNOMED Code(s): 54095415 Code(s): E87.6 - HYPOKALEMIA Status: Acute (3) Hypomagnesemia SNOMED Code(s): 593367542 Code(s): E83.42 - HYPOMAGNESEMIA Status: Acute (4) Hypoxia SNOMED Code(s): 335031333 Code(s): R09.02 - HYPOXEMIA Status: Acute (5) Pneumonia SNOMED Code(s): 377637232 Code(s): J18.9 - PNEUMONIA, UNSPECIFIED ORGANISM Status: Acute Qualifiers: Laterality: right Lung location: lower lobe of lung (6) Abdominal pain SNOMED Code(s): 65328789 Code(s): R10.9 - UNSPECIFIED ABDOMINAL PAIN Status: Acute Qualifiers: Abdominal location: upper abdomen, unspecified Qualified Code(s): R10.10 - Upper abdominal pain, unspecified (7) Acute depression SNOMED Code(s): 824456363 Code(s): F32.9 - MAJOR DEPRESSIVE DISORDER, SINGLE EPISODE, UNSPECIFIED Status: Acute (8) Acute hypoxemic respiratory failure due to COVID-19 SNOMED Code(s): 740128158 Code(s): U07.1 - COVID-19; J96.01 - ACUTE RESPIRATORY FAILURE WITH HYPOXIA Status: Acute (9) Leukopenia SNOMED Code(s): 28250535, 399459647 Code(s): D72.819 - DECREASED WHITE BLOOD CELL COUNT, UNSPECIFIED Status: Acute (10) Obstructive sleep apnea SNOMED Code(s): 39154699 Code(s): G47.33 - OBSTRUCTIVE SLEEP APNEA (ADULT) (PEDIATRIC) Status: Acute (11) Pneumonia due to COVID-19 virus SNOMED Code(s): 529761824 Code(s): U07.1 - COVID-19; J12.89 - OTHER VIRAL PNEUMONIA Status: Acute - Problem List Review Problem List Initiated/Reviewed/Updated: Yes - Assessment Assessment:: of admission COVID positive infection - Testing done 3 days ago. - Symptoms include severe cough, shortness of breath, high fever, chills, and emesis. - Mildly hypoxic with a pulse ox in the low 90% on room air - D-dimer 0.7, C-reactive protein 17.1, negative troponin, ferritin 261, LDH 355 Pneumonia versus bronchitis right lower lobe - WBC 5 - CRP 17.1 Asthma - On Dulera at home. - Mild shortness of breath and cough. Hypomagnesemia, hypokalemia - Magnesium 1.6, potassium 3.2 PLAN - Refer for observation secondary to borderline hypoxia and asthma placing her at much greater risk for complications. - Start azithromycin - Hold off on remdesivir secondary to not requiring supplemental oxygen - Consider dexamethasone if symptoms are not improving or requiring steroids to treat her asthma, or requiring supplemental oxygen. - Strict isolation - Seebri 1 puff daily - Albuterol 2 puffs 4 times daily - Toradol and ibuprofen as needed for headache and pain. - Magnesium and potassium replacement - Procalcitonin - CBC, CMP, magnesium daily - Trend C-reactive protein and d-dimer. 10/29/2019 COVID positive - No change in C-reactive protein: 17.4 - Symptomatically she has no change. Pulse ox still in the low to mid 90s. - Not requiring FiO2 supplementation Pneumonia versus bronchitis right lower lobe - Currently on azithromycin - No change Asthma - Improvement with albuterol - Mild wheeze Hypomagnesemia, hypokalemia - Magnesium 2.2 - Potassium 3.4 PLAN - Continue azithromycin - Start Rocephin 2 g every 24 hours - Hold off on remdesivir secondary to not requiring supplemental oxygen - Start dexamethasone 6 mg p.o. daily. - Strict isolation - Seebri 1 puff daily - Albuterol 2 puffs 4 times daily - Toradol and ibuprofen as needed for headache and pain. - Potassium chloride 40 mEq p.o. x1 10/30/2019 COVID-19 infection with worsening hypoxemia Pneumonia Asthma - Worsening oxygenation - Started dexamethasone yesterday - On Rocephin and azithromycin - Started on 2 L nasal cannula - C-reactive protein 14.4 - White count 5.4 Hypomagnesemia, hypokalemia -resolved - Magnesium 2.2 - Potassium 3.9 PLAN - Start remdesivir - Patient was given "fax sheet for patient's and parents/caregivers" and risks including liver disease were discussed. - Continue dexamethasone, day 2 of 10 - Continue Rocephin and azithromycin - Strict isolation - Albuterol as needed - CBC, CMP, magnesium, C-reactive protein, and d-dimer in the morning 10/31/2019 COVID-19 infection with pneumonia Asthma - Started on 5-day course of remdesivir - Continuing on dexamethasone, Rocephin and finished azithromycin - O2 requirement from nothing to up to 2 L/min - C-reactive protein down to 6.2 - D-dimer 0.28 Elevated liver enzymes - AST 64, ALT 75. - Both improved since admission Electrolyte abnormalities resolved PLAN - Continue current treatment of remdesivir, dexamethasone, and Rocephin. - Adjust FiO2 to keep SPO2 between 88 and 95% - Anticipated discharge in 4 days. - Recheck CBC, CMP, magnesium, and CRP tomorrow 11/01/2019 Severe COVID-19 infection with pneumonia Asthma - Oxygen requirement increasing. Currently on 3 L. - Treated with remdesivir, dexamethasone, Rocephin, and azithromycin. - C-reactive protein is down to 2.9. - Expiratory wheeze noted. Asthma exacerbation may be worsening oxygenation. Concern for cytokine storm remains. Elevated liver enzymes - ALT 114, alk phos 49. - Continue to monitor because of remdesivir. PLAN - Continue remdesivir, dexamethasone, and Rocephin - Start convalescent plasma. 2 units have been ordered, but only one is bao ilable today and the other will be given tomorrow. - Continue following CBC, CMP, magnesium, and C-reactive protein. - Get chest x-ray tomorrow. 11/02/2019 BM today, loose Not eating most of his diet Continues to require higher and higher FiO2 Refusing high protein jelly Complaining of diarrhea dn abdominal distention CXR with worsening infiltrates VS trend - MAP: 94-117 - HR 63-82 - Tmax 97.3 - SatO2 > 88% Lab results - WBC up from 2.25 to 2.6 - CRP down from 2.9 to 1.6 PLAN - Rocephin day 5 - Remdesivir day 4 - Dexamethasone day 4 - Continue O2 supplementation - Continue CPAP while sleeping - Encourage mobility and patient to get out of bed 11/03/2019 Still refusing to eat or get out of bed Still on 4LPM, drops to mid 80s on exertion Crackles on right base, yellow sputum VS trend - BP 107-123/55-86 - Tmax 97.6 - HR 49-99 - SatO2 > 87% on 3-4LPM on NC Lab results - WBC up from 2.6 to 3.66 - DD up from 0.28 to 0.83 - Na down from 138 to 135 - K down from 3.7 to 3.4 - LDH 419 - CRP down from 1.6 to 0.8 - Blood cultures negative x 5 days - Plan Plan:: Pneumonia 2/2 COVID Acute hypoxemic respiratory failure Obstructive sleep apnea Asthma Leukopenia - Remdesivir day 5 - Dexamethasone day 6 - Continue O2 supplementation - Continue CPAP while sleeping - Fasting sputum in AM - #2 convalescent plasma unit today Acute depression - Encourage mobility and patient to get out of bed - Start magic cup Hypokalemia, resolved Hypomagnesemia, resolved PROPHYLAXIS DVT- Lovenox GI-not indicated CODE STATUS: FULL CODE DISPOSITION: Patient will remain admitted for COVID therapy and wean off O2 supplementation.
[2019-11-03] MEDS ORDERED: Potassium Chloride 20 MEQ Tab.ER PO ONE (21:00)
[2019-11-03] MEDS: Potassium Chloride 20 MEQ Tab.ER PO SCH (21:23)
[2019-11-03] MEDS: LORazepam 2 MG/ML SDV IVPUSH PRN (21:24)
[2019-11-04] MEDS: Potassium Chloride 20 MEQ Tab.ER PO SCH (00:04)
[2019-11-04] MEDS: Codeine/guaiFENesin 10-100 MG/5 ML Syrup 5 ML Cup PO PRN (00:05)
[2019-11-04] MEDS: Simethicone 80 MG Tab.Chew PO SCH ×4 (00:05→17:12)
[2019-11-04] MEDS ORDERED: Sodium Chloride 0.9% Inhalation Soln 3 ML Neb INH SCH (05:00)
[2019-11-04] MEDS: Glycopyrrolate 15.6 MCG Cap.W.Dev Kit of 6 IH SCH ×2 (05:05→20:17)
[2019-11-04] MEDS: Albuterol 6.7 GM Inhaler INH SCH ×4 (05:06→20:17)
[2019-11-04] MEDS: Dexamethasone 4 MG Tab PO SCH (08:15)
[2019-11-04] MEDS: Cholecalciferol (Vitamin D3) 5,000 UNIT Tab PO SCH (08:16)
[2019-11-04] MEDS: Famotidine 20 MG Tab PO SCH ×2 (08:17→21:44)
[2019-11-04] MEDS: Enoxaparin 40 MG/0.4 ML Syringe SUBCUT SCH ×2 (08:17→21:43)
[2019-11-04] MEDS: Formoterol/Mometasone 200-5 MCG 8.8 GM Inhaler IH SCH ×2 (09:01→20:17)
[2019-11-04] MEDS ORDERED: Iopamidol 755 MG/ML 50 ML Bottle IVPUSH ONE (16:45)
[2019-11-04] MEDS ORDERED: Sodium Chloride 0.9% 100 ML IV SCH (16:45)
[2019-11-04] MEDS ORDERED: Sodium Chloride 0.9% 10 ML Syringe FLUSH PRN (16:45)
[2019-11-04] MEDS: Iopamidol 755 Mg/ML 100 ML Bottle IVPUSH ONE ×2 (17:21→17:25)
--- NOTE | 2019-11-04 17:36 | CT ---
CT chest Technique: Multiple axial sections were obtained from above the lung apices inferiorly through the lung bases. Intravenous contrast was utilized. Study performed with pulmonary angiogram protocol. Findings: Visualized upper abdominal structures shows prior cholecystectomy. Nothing acute is appreciated. Heart does not appear enlarged. Pulmonary arteries are fairly well opacified. No filling defects are seen to indicate discrete pulmonary embolism. Patchy groundglass areas of increased density are seen throughout both sides of the chest. Findings presumably due to multifocal pneumonia. Impression: 1. Patchy groundglass areas of increased density throughout both sides of the chest. Findings may represent diffuse pneumonia which is most likely viral. 2. No definite findings of pulmonary embolism are seen. 3. No additional abnormality is appreciated. Diagnostic code #5 This report was dictated in MDT
--- NOTE | 2019-11-04 18:50 | PCM.PN ---
- General Info Date of Service: 11/04/19 Subjective Update: Last BM today Still on 4LPM NC, dropping to low 80s on exertion Not eating - Patient Data Vitals - Most Recent: Last Vital Signs Temp 98.8 F 11/04/19 15:02 Pulse 90 11/04/19 16:03 Resp 24 H 11/04/19 15:02 BP 106/69 11/04/19 15:02 Pulse Ox 87 L 11/04/19 16:03 Weight - Most Recent: 135.715 kg - Exam Quality Assessment: Supplemental Oxygen General: Alert, Oriented, No Acute Distress. No: Cooperative HEENT: Pupils Equal, Pupils Reactive, EOMI, Mucous Membr. Moist/[place] Neck: Supple Lungs: Clear to Auscultation, Normal Respiratory Effort, Decreased Breath Sounds, Crackles. No: Rales, Rhonchi, Rub, Stridor, Wheezing Cardiovascular: Regular Rate, Regular Rhythm. No: Murmurs, Gallops, Rubs GI/Abdominal Exam: Distended. No: Guarding, Rigid, Rebound, Tender Extremities: Normal Inspection, Non-Tender, Pedal Edema Peripheral Pulses: 2+: Radial (L), Radial (R) Skin: Warm, Dry, Intact Psy/Mental Status: Depressed Sepsis Event Note - Evaluation Sepsis Screening Result: No Definite Risk - Problem List & Annotations (1) Asthma SNOMED Code(s): 068106489 Code(s): J45.909 - UNSPECIFIED ASTHMA, UNCOMPLICATED Status: Acute Qualifiers: Asthma severity: moderate Asthma persistence: persistent Asthma complication type: uncomplicated Qualified Code(s): J45.40 - Moderate persistent asthma, uncomplicated (2) Hypokalemia SNOMED Code(s): 79534306 Code(s): E87.6 - HYPOKALEMIA Status: Acute (3) Hypomagnesemia SNOMED Code(s): 241564479 Code(s): E83.42 - HYPOMAGNESEMIA Status: Acute (4) Hypoxia SNOMED Code(s): 506556136 Code(s): R09.02 - HYPOXEMIA Status: Acute (5) Pneumonia SNOMED Code(s): 809422940 Code(s): J18.9 - PNEUMONIA, UNSPECIFIED ORGANISM Status: Acute Qualifiers: Laterality: right Lung location: lower lobe of lung (6) Abdominal pain SNOMED Code(s): 89135808 Code(s): R10.9 - UNSPECIFIED ABDOMINAL PAIN Status: Acute Qualifiers: Abdominal location: upper abdomen, unspecified Qualified Code(s): R10.10 - Upper abdominal pain, unspecified (7) Acute depression SNOMED Code(s): 050460527 Code(s): F32.9 - MAJOR DEPRESSIVE DISORDER, SINGLE EPISODE, UNSPECIFIED Status: Acute (8) Acute hypoxemic respiratory failure due to COVID-19 SNOMED Code(s): 115700167 Code(s): U07.1 - COVID-19; J96.01 - ACUTE RESPIRATORY FAILURE WITH HYPOXIA Status: Acute (9) Anxiety SNOMED Code(s): 48891580 Code(s): F41.9 - ANXIETY DISORDER, UNSPECIFIED Status: Acute (10) Leukopenia SNOMED Code(s): 41156484, 956956045 Code(s): D72.819 - DECREASED WHITE BLOOD CELL COUNT, UNSPECIFIED Status: Acute (11) Obstructive sleep apnea SNOMED Code(s): 38809802 Code(s): G47.33 - OBSTRUCTIVE SLEEP APNEA (ADULT) (PEDIATRIC) Status: Acute (12) Pneumonia due to COVID-19 virus SNOMED Code(s): 596157328 Code(s): U07.1 - COVID-19; J12.89 - OTHER VIRAL PNEUMONIA Status: Acute (13) Hyponatremia SNOMED Code(s): 87039197 Code(s): E87.1 - HYPO-OSMOLALITY AND HYPONATREMIA Status: Acute - Problem List Review Problem List Initiated/Reviewed/Updated: Yes - Assessment Assessment:: of admission COVID positive infection - Testing done 3 days ago. - Symptoms include severe cough, shortness of breath, high fever, chills, and emesis. - Mildly hypoxic with a pulse ox in the low 90% on room air - D-dimer 0.7, C-reactive protein 17.1, negative troponin, ferritin 261, LDH 355 Pneumonia versus bronchitis right lower lobe - WBC 5 - CRP 17.1 Asthma - On Dulera at home. - Mild shortness of breath and cough. Hypomagnesemia, hypokalemia - Magnesium 1.6, potassium 3.2 PLAN - Refer for observation secondary to borderline hypoxia and asthma placing her at much greater risk for complications. - Start azithromycin - Hold off on remdesivir secondary to not requiring supplemental oxygen - Consider dexamethasone if symptoms are not improving or requiring steroids to treat her asthma, or requiring supplemental oxygen. - Strict isolation - Seebri 1 puff daily - Albuterol 2 puffs 4 times daily - Toradol and ibuprofen as needed for headache and pain. - Magnesium and potassium replacement - Procalcitonin - CBC, CMP, magnesium daily - Trend C-reactive protein and d-dimer. 10/29/2019 COVID positive - No change in C-reactive protein: 17.4 - Symptomatically she has no change. Pulse ox still in the low to mid 90s. - Not requiring FiO2 supplementation Pneumonia versus bronchitis right lower lobe - Currently on azithromycin - No change Asthma - Improvement with albuterol - Mild wheeze Hypomagnesemia, hypokalemia - Magnesium 2.2 - Potassium 3.4 PLAN - Continue azithromycin - Start Rocephin 2 g every 24 hours - Hold off on remdesivir secondary to not requiring supplemental oxygen - Start dexamethasone 6 mg p.o. daily. - Strict isolation - Seebri 1 puff daily - Albuterol 2 puffs 4 times daily - Toradol and ibuprofen as needed for headache and pain. - Potassium chloride 40 mEq p.o. x1 10/30/2019 COVID-19 infection with worsening hypoxemia Pneumonia Asthma - Worsening oxygenation - Started dexamethasone yesterday - On Rocephin and azithromycin - Started on 2 L nasal cannula - C-reactive protein 14.4 - White count 5.4 Hypomagnesemia, hypokalemia -resolved - Magnesium 2.2 - Potassium 3.9 PLAN - Start remdesivir - Patient was given "fax sheet for patient's and parents/caregivers" and risks including liver disease were discussed. - Continue dexamethasone, day 2 of 10 - Continue Rocephin and azithromycin - Strict isolation - Albuterol as needed - CBC, CMP, magnesium, C-reactive protein, and d-dimer in the morning 10/31/2019 COVID-19 infection with pneumonia Asthma - Started on 5-day course of remdesivir - Continuing on dexamethasone, Rocephin and finished azithromycin - O2 requirement from nothing to up to 2 L/min - C-reactive protein down to 6.2 - D-dimer 0.28 Elevated liver enzymes - AST 64, ALT 75. - Both improved since admission Electrolyte abnormalities resolved PLAN - Continue current treatment of remdesivir, dexamethasone, and Rocephin. - Adjust FiO2 to keep SPO2 between 88 and 95% - Anticipated discharge in 4 days. - Recheck CBC, CMP, magnesium, and CRP tomorrow 11/01/2019 Severe COVID-19 infection with pneumonia Asthma - Oxygen requirement increasing. Currently on 3 L. - Treated with remdesivir, dexamethasone, Rocephin, and azithromycin. - C-reactive protein is down to 2.9. - Expiratory wheeze noted. Asthma exacerbation may be worsening oxygenation. Concern for cytokine storm remains. Elevated liver enzymes - ALT 114, alk phos 49. - Continue to monitor because of remdesivir. PLAN - Continue remdesivir, dexamethasone, and Rocephin - Start convalescent plasma. 2 units have been ordered, but only one is available today and the other will be given tomorrow. - Continue following CBC, CMP, magnesium, and C-reactive protein. - Get chest x-ray tomorrow. 11/02/2019 BM today, loose Not eating most of his diet Continues to require higher and higher FiO2 Refusing high protein jelly Complaining of diarrhea dn abdominal distention CXR with worsening infiltrates VS trend - MAP: 94-117 - HR 63-82 - Tmax 97.3 - SatO2 > 88% Lab results - WBC up from 2.25 to 2.6 - CRP down from 2.9 to 1.6 PLAN - Rocephin day 5 - Remdesivir day 4 - Dexamethasone day 4 - Continue O2 supplementation - Continue CPAP while sleeping - Encourage mobility and patient to get out of bed 11/03/2019 Still refusing to eat or get out of bed Still on 4LPM, drops to mid 80s on exertion Crackles on right base, yellow sputum VS trend - BP 107-123/55-86 - Tmax 97.6 - HR 49-99 - SatO2 > 87% on 3-4LPM on NC Lab results - WBC up from 2.6 to 3.66 - DD up from 0.28 to 0.83 - Na down from 138 to 135 - K down from 3.7 to 3.4 - LDH 419 - CRP down from 1.6 to 0.8 - Blood cultures negative x 5 days PLAN - Remdesivir day 5 - Dexamethasone day 6 - Continue O2 supplementation - Continue CPAP while sleeping - Fasting sputum in AM - #2 convalescent plasma unit today - Start magic cup 11/04/19 Still refusing to eat and move Obviously apathetic on physical exam Unable to wean off O2 supplementation Complete Remdesivir treatment course yesterday Still hypoxemic so will perform a CTA chest to rule out any PE or changes in rub[place] g parenchyma VS trend - BP 100-141/60-100 - Tmax 98.2 - HR 44-76 - SatO2 > 83% on 4LPM Lab results - WBC up from 3.66 to 4.24 - DD down from 0.83 to 0.76 - ABGs: 7.41/34.9/60/21.5/88.5 - Na up from 135 to 137 - K up from 3.4 to 4.1 - LDH down from 419 to 389 - CRP down from 0.8 to 0.6 - Sputum with rare gram negative rods and many gram negative coccobacilli - Blood cultures negative x 6 days - Plan Plan:: Pneumonia 2/2 COVID Acute hypoxemic respiratory failure Obstructive sleep apnea Asthma Leukopenia - Dexamethasone day 7 - Continue O2 supplementation - Continue CPAP while sleeping - CTA chest - Start Mucinex Acute depression - Encourage mobility and patient to get out of bed - Start magic cup Hypokalemia, resolved Hypomagnesemia, resolved Hyponatremia, resolved PROPHYLAXIS DVT- Lovenox GI-not indicated CODE STATUS: FULL CODE DISPOSITION: Patient will remain admitted for COVID therapy and wean off O2 supplementation.
[2019-11-04] MEDS: LORazepam 2 MG/ML SDV IVPUSH PRN (21:48)
[2019-11-05] MEDS: Simethicone 80 MG Tab.Chew PO SCH ×3 (01:33→12:43)
[2019-11-05] MEDS: LORazepam 2 MG/ML SDV IVPUSH PRN (01:40)
[2019-11-05] MEDS: Glycopyrrolate 15.6 MCG Cap.W.Dev Kit of 6 IH SCH (05:38)
[2019-11-05] MEDS: Albuterol 6.7 GM Inhaler INH SCH ×3 (05:38→18:00)
[2019-11-05] MEDS: Formoterol/Mometasone 200-5 MCG 8.8 GM Inhaler IH SCH (09:23)
[2019-11-05] MEDS: Dexamethasone 4 MG Tab PO SCH (09:43)
[2019-11-05] MEDS: Famotidine 20 MG Tab PO SCH (09:43)
[2019-11-05] MEDS: Cholecalciferol (Vitamin D3) 5,000 UNIT Tab PO SCH (09:44)
[2019-11-05] MEDS: Enoxaparin 40 MG/0.4 ML Syringe SUBCUT SCH (09:45)
[2019-11-05 12:41] VITALS: BP 99/59; PULSE 84
[2019-11-05] MEDS: Acetaminophen 325 MG Tab PO PRN (13:58)
--- NOTE | 2019-11-05 14:12 | PCM.DCSUM1 ---
Discharge Summary - Hospital Course HPI Initial Comments: 39-year-old female presents emergency department after 3 days of fever, chills, and cough. She states that her temperature was 103 at home. She complains of a headache. She states that she has been coughing so hard that she vomits. She has decreased in appetite. She was camping over the weekend and went home because she was feeling ill. Patient was tested for the coronavirus 3 days prior to admission and while she was in the emergency department she had a phone call from the health department failure she was positive for COVID-19. Patient has a history of asthma and is on Dulera for maintenance. Patient's oxygen saturations were in the low 90s on room air in the emergency department. She had a temperature of 101.7. Chest x-ray showed Right sided perihilar markings likely due to bronchitis but difficult to exclude right lower lobe pneumonia. Initial labs:WBC 5000, hemoglobin 12.1, platelet count 158, d-dimer 0.71, C- reactive protein 17.1, troponin I less than 0.017, LDH 355, ferritin 261, magnesium 1.6, potassium 3.2, BUN 7, creatinine 1.0 Patient was admitted to the floor for observation because of her mildly reduced oxygen saturations and history of asthma. Diagnosis: Stroke: No - Discharge Data Discharge Date: 11/05/19 Discharge Disposition: Home, Self-Care 01 Condition: Good - Referral to Home Health Primary Care Physician: Maylin Lauren MD - Discharge Diagnosis/Problem(s) (1) Pneumonia due to COVID-19 virus SNOMED Code(s): 937392442 ICD Code: U07.1 - COVID-19; J12.89 - OTHER VIRAL PNEUMONIA Status: Acute (2) Asthma SNOMED Code(s): 230551098 ICD Code: J45.909 - UNSPECIFIED ASTHMA, UNCOMPLICATED Status: Acute Qualifiers: Asthma severity: moderate Asthma persistence: persistent Asthma complication type: uncomplicated Qualified Code(s): J45.40 - Moderate persistent asthma, uncomplicated (3) Hypokalemia SNOMED Code(s): 66869107 ICD Code: E87.6 - HYPOKALEMIA Status: Acute (4) Hypomagnesemia SNOMED Code(s): 325007261 ICD Code: E83.42 - HYPOMAGNESEMIA Status: Acute (5) Hypoxia SNOMED Code(s): 309788919 ICD Code: R09.02 - HYPOXEMIA Status: Acute (6) Pneumonia SNOMED Code(s): 689158645 ICD Code: J18.9 - PNEUMONIA, UNSPECIFIED ORGANISM Status: Acute Qualifiers: Laterality: right Lung location: lower lobe of lung (7) Acute depression SNOMED Code(s): 061091001 ICD Code: F32.9 - MAJOR DEPRESSIVE DISORDER, SINGLE EPISODE, UNSPECIFIED Status: Acute (8) Acute hypoxemic respiratory failure due to COVID-19 SNOMED Code(s): 973301916 ICD Code: U07.1 - COVID-19; J96.01 - ACUTE RESPIRATORY FAILURE WITH HYPOXIA Status: Acute (9) Anxiety SNOMED Code(s): 66124613 ICD Code: F41.9 - ANXIETY DISORDER, UNSPECIFIED Status: Acute (10) Hyponatremia SNOMED Code(s): 30136299 ICD Code: E87.1 - HYPO-OSMOLALITY AND HYPONATREMIA Status: Acute (11) Leukopenia SNOMED Code(s): 61315517, 555432065 ICD Code: D72.819 - DECREASED WHITE BLOOD CELL COUNT, UNSPECIFIED Status: Acute (12) Obstructive sleep apnea SNOMED Code(s): 55245065 ICD Code: G47.33 - OBSTRUCTIVE SLEEP APNEA (ADULT) (PEDIATRIC) Status: Acute (13) Vitamin D deficiency SNOMED Code(s): 00005444 ICD Code: E55.9 - VITAMIN D DEFICIENCY, UNSPECIFIED Status: Acute - Patient Summary/Data Hospital Course: 10/28/2019day of admission COVID positive infection - Testing done 3 days ago. - Symptoms include severe cough, shortness of breath, high fever, chills, and emesis. - Mildly hypoxic with a pulse ox in the low 90% on room air - D-dimer 0.7, C-reactive protein 17.1, negative troponin, ferritin 261, LDH 355 Pneumonia versus bronchitis right lower lobe - WBC 5 - CRP 17.1 Asthma - On Dulera at home. - Mild shortness of breath and cough. Hypomagnesemia, hypokalemia - Magnesium 1.6, potassium 3.2 PLAN - Refer for observation secondary to borderline hypoxia and asthma placing her at much greater risk for complications. - Start azithromycin - Hold off on remdesivir secondary to not requiring supplemental oxygen - Consider dexamethasone if symptoms are not improving or requiring steroids to treat her asthma, or requiring supplemental oxygen. - Strict isolation - Seebri 1 puff daily - Albuterol 2 puffs 4 times daily - Toradol and ibuprofen as needed for headache and pain. - Magnesium and potassium replacement - Procalcitonin - CBC, CMP, magnesium daily - Trend C-reactive protein and d-dimer. 10/29/2019 COVID positive - No change in C-reactive protein: 17.4 - Symptomatically she has no change. Pulse ox still in the low to mid 90s. - Not requiring FiO2 supplementation Pneumonia versus bronchitis right lower lobe - Currently on azithromycin - No change Asthma - Improvement with albuterol - Mild wheeze Hypomagnesemia, hypokalemia - Magnesium 2.2 - Potassium 3.4 PLAN - Continue azithromycin - Start Rocephin 2 g every 24 hours - Hold off on remdesivir secondary to not requiring supplemental oxygen - Start dexamethasone 6 mg p.o. daily. - Strict isolation - Seebri 1 puff daily - Albuterol 2 puffs 4 times daily - Toradol and ibuprofen as needed for headache and pain. - Potassium chloride 40 mEq p.o. x1 10/30/2019 COVID-19 infection with worsening hypoxemia Pneumonia Asthma - Worsening oxygenation - Started dexamethasone yesterday - On Rocephin and azithromycin - Started on 2 L nasal cannula - C-reactive protein 14.4 - White count 5.4 Hypomagnesemia, hypokalemia -resolved - Magnesium 2.2 - Potassium 3.9 PLAN - Start remdesivir - Patient was given "fax sheet for patient's and parents/caregivers" and risks including liver disease were discussed. - Continue dexamethasone, day 2 of 10 - Continue Rocephin and azithromycin - Strict isolation - Albuterol as needed - CBC, CMP, magnesium, C-reactive protein, and d-dimer in the morning 10/31/2019 COVID-19 infection with pneumonia Asthma - Started on 5-day course of remdesivir - Continuing on dexamethasone, Rocephin and finished azithromycin - O2 requirement from nothing to up to 2 L/min - C-reactive protein down to 6.2 - D-dimer 0.28 Elevated liver enzymes - AST 64, ALT 75. - Both improved since admission Electrolyte abnormalities resolved PLAN - Continue current treatment of remdesivir, dexamethasone, and Rocephin. - Adjust FiO2 to keep SPO2 between 88 and 95% - Anticipated discharge in 4 days. - Recheck CBC, CMP, magnesium, and CRP tomorrow 11/01/2019 Severe COVID-19 infection with pneumonia Asthma - Oxygen requirement increasing. Currently on 3 L. - Treated with remdesivir, dexamethasone, Rocephin, and azithromycin. - C-reactive protein is down to 2.9. - Expiratory wheeze noted. Asthma exacerbation may be worsening oxygenation. Concern for cytokine storm remains. Elevated liver enzymes - ALT 114, alk phos 49. - Continue to monitor because of remdesivir. PLAN - Continue remdesivir, dexamethasone, and Rocephin - Start convalescent plasma. 2 units have been ordered, but only one is available today and the other will be given tomorrow. - Continue following CBC, CMP, magnesium, and C-reactive protein. - Get chest x-ray tomorrow. 11/02/2019 BM today, loose Not eating most of his diet Continues to require higher and higher FiO2 Refusing high protein jelly Complaining of diarrhea dn abdominal distention CXR with worsening infiltrates VS trend - MAP: 94-117 - HR 63-82 - Tmax 97.3 - SatO2 > 88% Lab results - WBC up from 2.25 to 2.6 - CRP down from 2.9 to 1.6 PLAN - Rocephin day 5 - Remdesivir day 4 - Dexamethasone day 4 - Continue O2 supplementation - Continue CPAP while sleeping - Encourage mobility and patient to get out of bed 11/03/2019 Still refusing to eat or get out of bed Still on 4LPM, drops to mid 80s on exertion Crackles on right base, yellow sputum VS trend - BP 107-123/55-86 - Tmax 97.6 - HR 49-99 - SatO2 > 87% on 3-4LPM on NC Lab results - WBC up from 2.6 to 3.66 - DD up from 0.28 to 0.83 - Na down from 138 to 135 - K down from 3.7 to 3.4 - LDH 419 - CRP down from 1.6 to 0.8 - Blood cultures negative x 5 days PLAN - Remdesivir day 5 - Dexamethasone day 6 - Continue O2 supplementation - Continue CPAP while sleeping - Fasting sputum in AM - #2 convalescent plasma unit today - Start magic cup 11/04/19 Still refusing to eat and move Obviously apathetic on physical exam Unable to wean off O2 supplementation Complete Remdesivir treatment course yesterday Still hypoxemic so will perform a CTA chest to rule out any PE or changes in lung parenchyma VS trend - BP 100-141/60-100 - Tmax 98.2 - HR 44-76 - SatO2 > 83% on 4LPM Lab results - WBC up from 3.66 to 4.24 - DD down from 0.83 to 0.76 - ABGs: 7.41/34.9/60/21.5/88.5 - Na up from 135 to 137 - K up from 3.4 to 4.1 - LDH down from 419 to 389 - CRP down from 0.8 to 0.6 - Sputum with rare gram negative rods and many gram negative coccobacilli - Blood cultures negative x 6 days PLAN - Dexamethasone day 7 - Continue O2 supplementation - Continue CPAP while sleeping - CTA chest - Start Mucinex 11/05/19 CTA chest negative for PE RT performed 6MWT and qualified patient for O2 supplementation Completed Remdesivir Discharged to complete Dexamethasone 10 days - Patient Instructions Diet: Usual Diet as Tolerated Activity: As Tolerated - Discharge Plan *PRESCRIPTION DRUG MONITORING PROGRAM REVIEWED*: Not Applicable *COPY OF PRESCRIPTION DRUG MONITORING REPORT IN PATIENT ISAC: Not Applicable Prescriptions/Med Rec: dexAMETHasone [Dexamethasone] 6 mg PO DAILY #3 dose Glycopyrrolate [Seebri Neohaler] 15.6 mcg IH BIDRT #14 inhalant Simethicone 80 mg PO Q6H #30 tab.chew Cholecalciferol (Vitamin D3) [Vitamin D3] 5,000 unit PO DAILY #30 tablet Home Medications: Home Meds Mometasone/Formoterol [Dulera 200 Mcg-5 Mcg Inhaler] 2 puff INH BID 07/27/19 [History] Melatonin 20 mg PO BEDTIME PRN 11/01/19 [History] Cholecalciferol (Vitamin D3) [Vitamin D3] 5,000 unit PO DAILY #30 tablet 11/05/19 [Rx] Glycopyrrolate [Seebri Neohaler] 15.6 mcg IH BIDRT #14 inhalant 11/05/19 [Rx] Simethicone 80 mg PO Q6H #30 tab.chew 11/05/19 [Rx] dexAMETHasone [Dexamethasone] 6 mg PO DAILY #3 dose 11/05/19 [Rx] Oxygen Therapy Mode: Nasal Cannula Oxygen Flow Rate (L/min): 4 Maintain SpO2% greater than: 90 Patient Handouts: Asthma, Adult, COVID-19, Hypoxemia, Hypomagnesemia, Hypokalemia, COVID-19: How to Protect Yourself and Others - [facility] Referrals: Maylin Lauren MD [Primary Care Provider] - 11/19/19 1:30 pm (Please check in at 1:15 pm.) - Discharge Summary/Plan Comment DC Time >30 min.: Yes - General Info Date of Service: 11/05/19 Subjective Update: Feeling tired Hard time sleeping Still no appetite - Patient Data Vitals - Most Recent: Last Vital Signs Temp 97.9 F 11/05/19 12:35 Pulse 84 11/05/19 12:35 Resp 20 11/05/19 12:35 BP 99/59 L 11/05/19 12:35 Pulse Ox 87 L 11/05/19 12:35 Weight - Most Recent: 135.397 kg - Exam General: Reports: Alert, Oriented, Cooperative HEENT: Reports: Pupils Equal, Pupils Reactive, EOMI, Mucous Membr. Moist/[place] Neck: Reports: Supple Lungs: Reports: Decreased Breath Sounds. Denies: Normal Respiratory Effort, Crackles, Rales, Rhonchi, Rub, Stridor, Wheezing Cardiovascular: Reports: Regular Rate, Regular Rhythm. Denies: Murmurs, Gallops, Rubs GI/Abdominal Exam: Normal Bowel Sounds, Soft, Non-Tender, Distended. No: Guarding, Rigid, Rebound Extremities: Normal Inspection, Pedal Edema Skin: Reports: Warm, Dry Neurological: Reports: No New Focal Deficit Psy/Mental Status: Reports: Depressed
== END 2019-11-05 15:50 | disposition home or self-care (01) | DRG 177 ==
LOC: JD.ED 15:53 → JD.ICU 19:10 → OBSVTOIN 10-30 10:00 → JD.MS 11-03 07:58
PROVIDERS: ADMIT Family Medicine; ATTEND Family Medicine
PROC: XW033E5 Introduction of Remdesivir Anti-infective into Peripheral Vein, Percutaneous Approach, New Technology Group 5 (ICD-10-PCS; principal; 2019-10-30)
PROC: 8E0ZXY6 Isolation (ICD-10-PCS; 2019-10-30)
PROC: XW033E5 Introduction of Remdesivir Anti-infective into Peripheral Vein, Percutaneous Approach, New Technology Group 5 (ICD-10-PCS; 2019-10-31)
PROC: XW033E5 Introduction of Remdesivir Anti-infective into Peripheral Vein, Percutaneous Approach, New Technology Group 5 (ICD-10-PCS; 2019-11-01)
PROC: XW13325 Transfusion of Convalescent Plasma (Nonautologous) into Peripheral Vein, Percutaneous Approach, New Technology Group 5 (ICD-10-PCS; 2019-11-01)
PROC: XW13325 Transfusion of Convalescent Plasma (Nonautologous) into Peripheral Vein, Percutaneous Approach, New Technology Group 5 (ICD-10-PCS; 2019-11-01)
PROC: XW033E5 Introduction of Remdesivir Anti-infective into Peripheral Vein, Percutaneous Approach, New Technology Group 5 (ICD-10-PCS; 2019-11-02)
PROC: XW033E5 Introduction of Remdesivir Anti-infective into Peripheral Vein, Percutaneous Approach, New Technology Group 5 (ICD-10-PCS; 2019-11-03)
DX: U07.1 COVID-19 (principal); J12.89 Other viral pneumonia; Z68.42 Body mass index [BMI] 45.0-49.9, adult; J45.40 Moderate persistent asthma, uncomplicated; E87.6 Hypokalemia; E83.42 Hypomagnesemia; H54.7 Unspecified visual loss; G89.29 Other chronic pain; M54.2 Cervicalgia; M54.9 Dorsalgia, unspecified; F41.0 Panic disorder [episodic paroxysmal anxiety]; E66.9 Obesity, unspecified; Z79.899 Other long term (current) drug therapy; Z88.5 Allergy status to narcotic agent; Z90.49 Acquired absence of other specified parts of digestive tract; Z98.51 Tubal ligation status
CPT/HCPCS: 36415; 36430; 36600; 71045; 71045-26; 71275; 71275-26; 80053; 82306; 82550; 82728; 82803; 83615; 83735; 83880; 84100; 84145; 84484; 85007; 85025; 85027; 85379; 85610; 85730; 86140; 86900; 86901; 87040; 87070; 87205; 93005; 93010; 94640; 94660; 94761; 96361; 96365; 96366; 96367; 96372; 96374; 96375; 96376; 99285; 99285-25; A9270-GY; G0378; J0456; J0696; J1650; J1885; J2060; J2405; J3262; J3475; J7042; J7050; J7620-GY; J8540; P9017; Q9967

== ENCOUNTER 2019-11-18 19:24 | Emergency (ER) | payer MEDICAID ==
[2019-11-18 19:41] VITALS: BP 138/79; PULSE 64
--- NOTE | 2019-11-18 21:26 | EDM.PDOC ---
ED HPI GENERAL MEDICAL PROBLEM - General Chief Complaint: Respiratory Problem Stated Complaint: TIGHTNESS IN CHEST - COVID + Time Seen by Provider: 11/18/19 21:03 Source of Information: Reports: Patient, Old Records (D/D summary 11/05/2019) - History of Present Illness INITIAL COMMENTS - FREE TEXT/NARRATIVE: Ms. Sheets is a very pleasant 39-year-old woman who was tested for the SARS-CoV-2 virus on 10/25/2019, and was notified of a positive result on 10/28/2019. She was admitted to this hospital through 11/05/2019, during which time she was treated with room to severe, dexamethasone, convalescent plasma, and CPAP. He was discharged home on 4 L of oxygen per nasal cannula, continuously. She now returns to the ED stating that she has had 3 days of an intermittent cough, dyspnea on exertion, chest tightness, and palpitations. She also reports feeling quite anxious and hyperventilating, with tingling around her mouth and to both of her hands and fingers. No recent fever. The patient states that she has not followed up since she was discharged home on 11/05/2019. She states that she has a pulse oximeter at home, and that sometimes her oxygen will be completely normal, but that at other times, it would drop into the high 80s. She states that she felt well this morning, and therefore did not take her usual asthma inhalers until 11 AM. She and her boyfriend then went to a park, and her symptoms precipitated after she walked up a hill. She reports having some flecks of blood in her sputum after she coughed. Here in the ED, the patient is found to be hemodynamically stable, afebrile, s aturating 98% on 4 L of oxygen per nasal cannula, but up to 100% air. Other than the above symptoms, the patient denies having a recent fever, chills, sore throat, ear pain, nasal or sinus congestion, palpitations, nausea, vomiting, constipation, diarrhea, abdominal pain, urinary symptoms, recent weight gain or weight loss, recent bloody bowel movements or black bowel movements, recent joint aches, headaches, or rashes. The patient's PCP is Dr. Maylin Lauren. The patient has an appointment to see Dr. Lauren tomorrow at 13:30. Middle Chest Pain Score (Numeric/FACES): 8 - Related Data Allergies Allergy/AdvReac Type Severity Reaction Status Date / Time hydromorphone [From Dilaudid] AdvReac Mild Change Verified 11/18/19 19:41 Mental Status morphine AdvReac Mild Headache Verified 11/18/19 19:41 Home Meds: Home Meds Mometasone/Formoterol [Dulera 200 Mcg-5 Mcg Inhaler] 2 puff INH BID 07/27/19 [History] Melatonin 20 mg PO BEDTIME PRN 11/01/19 [History] Cholecalciferol (Vitamin D3) [Vitamin D3] 5,000 unit PO DAILY #30 tablet 11/05/19 [Rx] Glycopyrrolate [Seebri Neohaler] 15.6 mcg IH BIDRT #14 inhalant 11/05/19 [Rx] Simethicone 80 mg PO Q6H #30 tab.chew 11/05/19 [Rx] dexAMETHasone [Dexamethasone] 6 mg PO DAILY #3 dose 11/05/19 [Rx] Past Medical History HEENT History: Reports: Impaired Vision Respiratory History: Reports: Asthma (suspected, not tested) [employer] History: Reports: Other (See Below) (ovarian cysts) Psychiatric History: Reports: Addiction (alcohol), Anxiety, Panic Attack Endocrine/Metabolic History: Reports: Obesity/BMI 30+, Other (See Below) (Prediabetes) - Infectious Disease History Infectious Disease History: Reports: Novel Coronavirus - Past Surgical History HEENT Surgical History: Reports: Other (See Below) (Right facial cyst excision as a child) GI Surgical History: Reports: Cholecystectomy (around 2014) Female Surgical History: Reports: D&C (x 1), Tubal Ligation Social & Family History - Family History Family Medical History: Noncontributory - Tobacco Use Smoking Status *Q: Light Tobacco Smoker Tobacco Use Within Last Twelve Months: Vaping (last vaped nicotine Oct 2019) Years of Tobacco use: 16 Packs/Tins Daily: 0.1 Month/Year Tobacco Last Used: Down from 1/2 ppd - Caffeine Use Caffeine Use: Reports: None - Alcohol Use Alcohol Use History: Yes Date/Time of Last Drink Comment: Hx alcoholism - now drinking socially - Recreational Drug Use Recreational Drug Use: No - Living Situation & Occupation Living situation: Reports: Single, with Significant Other (Boyfriend), with Family (2 kids) Occupation: Unemployed ED ROS GENERAL - Review of Systems Review Of Systems: Comprehensive ROS is negative, except as noted in HPI. ED EXAM, GENERAL - Physical Exam Exam: See Below Exam Limited By: No Limitations General Appearance: Alert, WD/WN, No Apparent Distress, Anxious Eye Exam: Bilateral Eye: EOMI, Normal Inspection Ears: Normal External Exam, Normal Canal, Hearing Grossly Normal, Normal TMs Nose: Normal Inspection, Normal Mucosa, No Blood Throat/Mouth: Normal Inspection, Normal Lips, Normal Teeth, Normal Gums, Normal Oropharynx, Normal Voice, No Airway Compromise Head: Atraumatic, Normocephalic Neck: Normal Inspection, Supple, Non-Tender, Full Range of Motion. No: Lymphadenopathy (L), Lymphadenopathy (R) Respiratory/Chest: No Respiratory Distress, Lungs Clear, Normal Breath Sounds, No Accessory Muscle Use. No: Decreased Breath Sounds, Crackles, Rhonchi, Wheezing, Stridor, Prolonged Expiration Cardiovascular: Normal Peripheral Pulses, Regular Rate, Rhythm, No Gallop, No JVD, No Murmur, No Rub Peripheral Pulses: 3+: Radial (L), Radial (R) GI/Abdominal: Normal Bowel Sounds, Soft, Non-Tender, No Organomegaly, No Distention, No Abnormal Bruit, No Mass (Female) Exam: Deferred Rectal (Female) Exam: Deferred Back Exam: Normal Inspection, Full Range of Motion, NT Extremities: Normal Inspection, Normal Range of Motion, No Pedal Edema, Normal Capillary Refill Neurological: Alert, Oriented, Normal Cognition, No Motor/Sensory Deficits Psychiatric: Anxious Skin Exam: Warm, Dry, Intact, Normal Color, No Rash Course - Vital Signs Last Recorded V/S: Last Vital Signs Temp 36.3 C 11/18/19 19:34 Pulse 64 11/18/19 19:34 Resp 16 11/18/19 19:34 BP 138/79 11/18/19 19:34 Pulse Ox 98 11/18/19 19:34 - Orders/Labs/Meds Orders: Active Orders 24 hr Category Date Time Status Chest 2V [CR] Stat Exams 11/18/19 21:23 Taken - Re-Assessments/Exams Free Text/Narrative Re-Assessment/Exam: 11/18/19 21:24 As above, the patient presents with an increased cough, dyspnea on exertion, chest tightness, and intermittent tachycardia after walking up a hill at a park earlier today. She acknowledges that she is feeling quite anxious, with perioral and hand/finger tingling and numbness. Her oxygen saturation was 98% on 4 L of oxygen per nasal cannula, but appears to be maintaining 96% on room air. Her physical exam is grossly unremarkable, including lungs clear to auscultation bilaterally. I have ordered a chest x-ray, but at this time, I do not see an indication for any other testing. 11/18/19 22:11 Two-view chest radiograph reviewed. The cardiac silhouette is within normal limits. No pulmonary vascular congestion. No pleural effusions. There are bilateral hazy infiltrates throughout all lung ortega. No pneumothorax. Formal read per the Radiologist pending. At present, the patient's oxygen saturation is 100% on room air. 11/18/19 22:48 X-ray results discussed with the patient. I explained to the patient that her chest x-ray may remain abnormal for up to a month after her condition clinically resolves, but at the same time, it may take months for her clinical condition to resolve. The patient expressed concern about her oxygen saturation, noting that it is normal at this time, but that it drops with exertion at home. I recommended the patient apply oxygen if her oxygen saturation drops, since she has a pulse oximeter at home. She also inquired about a Seebri Neohaler, which she states she was prescribed 2 inhalers when she was discharged on 11/05/2019, and that they seem to help a lot. The Seebri Neohaler is glycopyrrolate, an anticholinergic. I offered to re-prescribe one for her, however, I also told her that she could take Benadryl with similar results. Since the patient already has Benadryl at home, she preferred that. The patient stated that she has an appointment to follow-up with her PCP at 1:30 tomorrow afternoon. Departure - Departure Time of Disposition: 22:59 Disposition: Home, Self-Care 01 Condition: Good Clinical Impression: COVID-19, Anxiety - Discharge Information *PRESCRIPTION DRUG MONITORING PROGRAM REVIEWED*: Not Applicable *COPY OF PRESCRIPTION DRUG MONITORING REPORT IN PATIENT ISAC: Not Applicable Instructions: COVID-19, Living With Anxiety Referrals: Maylin Lauren MD [Primary Care Provider] - Forms: ED Department Discharge Additional Instructions: You were seen in the emergency room for 3 days of on and off shortness of breath with chest tightness, coughing and decreased oxygen saturation. Work-up in the ER included a chest x-ray, which shows bilateral infiltrates, similar to your previous chest x-ray, but no other acute problems. Your oxygen saturation is normal on room air when you are not exerting yourself. We recommend that you continue to monitor your oxygen saturation, and apply oxygen if your oxygen saturation is 88% or below. You may take [id number] Benadryl for the same anticholinergic effect that you received from a Seebri Neohaler. Follow-up with your PCP, Dr. Maylin Lauren, at your previously scheduled appointment tomorrow, 11/19/2019, at 1:30 PM. If any other problems, please do not hesitate to return to the ER. Sepsis Event Note (ED) - Evaluation Sepsis Screening Result: No Definite Risk - Focused Exam Vital Signs: Vital Signs Temp Pulse Resp BP Pulse Ox 11/18/19 19:34 36.3 C 64 16 138/79 98 - My Orders Last 24 Hours: My Active Orders 11/18/19 21:23 Chest 2V [CR] Stat - Assessment/Plan Last 24 Hours: My Active Orders 11/18/19 21:23 Chest 2V [CR] Stat
--- NOTE | 2019-11-19 06:30 | CR ---
Chest: 2 views of the chest were obtained. Comparison: Prior chest x-ray of 10/28/19. Prior chest CT performed earlier on 11/04/19 is available. Diffuse increased density on both sides of the chest. Heart size and mediastinum are normal. Bony structures are within normal limits. Surgical clips are seen within the upper abdomen. Impression: 1. Diffuse increased density on both sides of the chest worsening from previous chest x-ray exam. Findings are fairly stable from chest CT. 2. Findings presumably due to diffuse infection either bacterial or viral. Diagnostic code #3 This report was dictated in MDT
== END 2019-11-18 23:10 | disposition home or self-care (01) ==
LOC: JD.ED 19:24
DX: U07.1 COVID-19 (principal); F41.9 Anxiety disorder, unspecified; J45.909 Unspecified asthma, uncomplicated; E66.9 Obesity, unspecified; F17.210 Nicotine dependence, cigarettes, uncomplicated; Z68.42 Body mass index [BMI] 45.0-49.9, adult; Z88.5 Allergy status to narcotic agent; Z79.899 Other long term (current) drug therapy
CPT/HCPCS: 71046; 71046-26; 99282; 99284

== ENCOUNTER 2019-12-03 15:05 | Emergency (ER) | payer MEDICAID ==
[2019-12-03 15:28] VITALS: BP 120/74; PULSE 116
[2019-12-03] MEDS ORDERED: Sodium Chloride 0.9% 10 ML Syringe FLUSH PRN (15:57)
[2019-12-03] MEDS ORDERED: Iopamidol 755 Mg/ML 100 ML Bottle IVPUSH ONE (16:43)
[2019-12-03] MEDS ORDERED: Sodium Chloride 0.9% 45 ML IV SCH (16:45)
[2019-12-03] MEDS ORDERED: Ketorolac 30 MG/ML SDV IVPUSH ONE (18:04)
--- NOTE | 2019-12-03 18:06 | EDM.PDOC ---
<Mike Vallecillo - Last Filed: 12/03/19 19:08> ED HPI GENERAL MEDICAL PROBLEM - General Chief Complaint: Respiratory Problem Stated Complaint: HEADACHE/CHEST PAIN/SOB Time Seen by Provider: 12/03/19 15:25 Source of Information: Reports: Patient History Limitations: Reports: No Limitations - History of Present Illness INITIAL COMMENTS - FREE TEXT/NARRATIVE: The patient presents with a headache, chest pain and shortness of breath. This has been going on for a few days. The patient was COVID 19 positive last Month October 27. She was admitted to the hospital and she did good. She does have some shortness of breath with exertion. That got a little worse the past couple of days. She also had a headache that started today. The headache feels like when she had COVID 19 last month. She does not have a cough. She also has some pain in her left chest. She has no history of DVT or PE. She does not have swelling or pain in her legs. Onset: Gradual Duration: Day(s): Location: Reports: Chest Quality: Reports: Sharp Severity: Moderate Improves with: Reports: None Worsens with: Reports: None Associated Symptoms: Reports: Chest Pain, Headaches, Shortness of Breath. Denies: Cough, Fever/Chills, Nausea/Vomiting Left Upper Chest Pain Score (Numeric/FACES): 6 - Related Data Allergies Allergy/AdvReac Type Severity Reaction Status Date / Time hydromorphone [From Dilaudid] AdvReac Mild Change Verified 12/03/19 15:27 Mental Status morphine AdvReac Mild Headache Verified 12/03/19 15:27 Home Meds: Home Meds Mometasone/Formoterol [Dulera 200 Mcg-5 Mcg Inhaler] 2 puff INH BID 07/27/19 [History] Melatonin 20 mg PO BEDTIME PRN 11/01/19 [History] Cholecalciferol (Vitamin D3) [Vitamin D3] 5,000 unit PO DAILY #30 tablet 11/05/19 [Rx] Simethicone 80 mg PO Q6H #30 tab.chew 11/05/19 [Rx] Albuterol Sulfate [Albuterol Sulfate Hfa] 1 puff PO ASDIRECTED 12/03/19 [History] Past Medical History - Past Health History Medical/Surgical History: Denies Medical/Surgical History HEENT History: Reports: Impaired Vision Other HEENT History: ringing of ears Cardiovascular History: Reports: Other (See Below) Other Cardiovascular History: chest pains with anxiety attacks Respiratory History: Reports: Asthma Gastrointestinal History: Reports: Helicobacter Pylori [employer] History: Reports: Other (See Below) Other [employer] History: ovarian cyst, hydrosalpinx, menorrhagia, pelvic pain and pressure Musculoskeletal History: Reports: Back Pain, Chronic, Neck Pain, Chronic Psychiatric History: Reports: Addiction, Anxiety, Panic Attack Other Psychiatric History: patient has hx of alcohol abuse Endocrine/Metabolic History: Reports: Obesity/BMI 30+, Other (See Below) - Infectious Disease History Infectious Disease History: Reports: Novel Coronavirus - Past Surgical History HEENT Surgical History: Reports: Other (See Below) GI Surgical History: Reports: Cholecystectomy Female Surgical History: Reports: D&C, Tubal Ligation Social & Family History - Family History Family Medical History: Noncontributory - Tobacco Use Smoking Status *Q: Former Smoker Used Tobacco, but Quit: Yes Month/Year Tobacco Last Used: 2016 - Caffeine Use Caffeine Use: Reports: Coffee, Tea - Recreational Drug Use Recreational Drug Use: No - Living Situation & Occupation Living situation: Reports: Single, with Significant Other (Boyfriend), with Family (2 kids) Occupation: Unemployed ED ROS GENERAL - Review of Systems Review Of Systems: See Below Constitutional: Reports: No Symptoms HEENT: Reports: No Symptoms Respiratory: Reports: Shortness of Breath. Denies: Cough Cardiovascular: Reports: Chest Pain Endocrine: Reports: No Symptoms GI/Abdominal: Reports: No Symptoms : Reports: No Symptoms Musculoskeletal: Reports: No Symptoms ED EXAM, GENERAL - Physical Exam Exam: See Below Exam Limited By: No Limitations General Appearance: Alert, No Apparent Distress Ears: Normal External Exam Nose: Normal Inspection Head: Atraumatic, Normocephalic Neck: Normal Inspection Respiratory/Chest: No Respiratory Distress, Lungs Clear, Normal Breath Sounds Cardiovascular: Regular Rate, Rhythm, No Edema, No Murmur GI/Abdominal: Soft, Non-Tender, No Organomegaly, No Mass Extremities: Normal Inspection EKG INTERPRETATION EKG Date: 12/03/19 Time: 18:49 Rhythm: Other (sinus tachycardia) Rate (Beats/Min): 112 [place]: Normal P-Wave: Present QRS: Normal ST-T: Normal QT: Normal Course - Re-Assessments/Exams Free Text/Narrative Re-Assessment/Exam: 12/03/19 18:13 I ordered an IV saline lock, EKG, CT angio of her chest and labs. I have also ordered toradol 30mg IV for her headache. 12/03/19 19:05 Her EKG shows a sinus tachycardia with no acute changes. Her CBC looks good. Her creatinine is slightly elevated at 1.1. Her total bili is elevated at 1.9. Her AST is elevated at 185. Her ALT is elevated at 98. Her troponin is negative. 12/03/19 19:08 It is change of shift. Dr Hutson to take over. Departure - Departure Disposition: Home, Self-Care 01 Clinical Impression: Pneumonia due to COVID-19 virus - Discharge Information Referrals: Maylin Lauren MD [Primary Care Provider] - Forms: ED Department Discharge Additional Instructions: Return to the emergency room with any questions problems or worsening symptoms. Follow-up with your regular healthcare provider at the end of this week. Turn your home O2 down to 2 L/min Sepsis Event Note (ED) - Evaluation Sepsis Screening Result: No Definite Risk <Sukhi Hutson - Last Filed: 12/03/19 20:23> Course - Vital Signs Last Recorded V/S: Last Vital Signs Temp 36.1 C 12/03/19 15:23 Pulse 116 H 12/03/19 15:23 Resp 20 12/03/19 15:23 BP 120/74 12/03/19 15:23 Pulse Ox 96 12/03/19 15:23 - Orders/Labs/Meds Orders: Active Orders 24 hr Category Date Time Status Cardiac Monitoring [RC] . DIRECTED Care 12/03/19 15:57 Active EKG Documentation Completion [RC] ASDIRECTED Care 12/03/19 18:12 Active Oxygen Therapy [RC] PRN Care 12/03/19 15:57 Active Peripheral IV Care [RC] . DIRECTED Care 12/03/19 15:58 Active CORONAVIRUS COVID-19 PCR PHL Stat Lab 12/03/19 18:30 Received Sodium Chloride 0.9% [Normal Saline] 45 ml Med 12/03/19 16:45 Active IV ASDIRECTED Sodium Chloride 0.9% [Saline Flush] Med 12/03/19 15:57 Active 10 ml FLUSH ASDIRECTED PRN Sodium Chloride 0.9% [Saline Flush] Med 12/03/19 16:43 Active 10 ml FLUSH ONETIME PRN Peripheral IV Insertion Adult [OM.PC] Stat Oth 12/03/19 15:57 Ordered EKG 12 Lead [EK] Stat Ther 12/03/19 18:12 Ordered Medication Orders Sodium Chloride (Normal Saline) 45 mls @ 40 mls/hr IV ASDIRECTED ANA Last Admin: 12/03/19 19:50 Dose: 40 mls/hr Documented by: ABBY Sodium Chloride (Saline Flush) 10 ml FLUSH ASDIRECTED PRN PRN Reason: Keep Vein Open Last Admin: 12/03/19 18:16 Dose: 10 ml Documented by: AKILA Sodium Chloride (Saline Flush) 10 ml FLUSH ONETIME PRN PRN Reason: Keep Vein Open Last Admin: 12/03/19 19:49 Dose: 10 ml Documented by: Admin: 12/03/19 18:16 Dose: 10 ml Documented by: AKILA Labs: Laboratory Tests 12/03/19 12/03/19 Range/Units 17:30 17:30 WBC 6.06 (3.98-10.04) K/mm3 RBC 4.59 (3.98-5.22) M/mm3 Hgb 13.8 (11.2-15.7) gm/dl Hct 42.1 (34.1-44.9) % MCV 91.7 D (79.4-94.8) fl MCH 30.1 (25.6-32.2) pg MCHC 32.8 (32.2-35.5) g/dl RDW Std Deviation 52.2 H (36.4-46.3) fL Plt Count 215 D (182-369) K/mm3 MPV 9.7 (9.4-12.3) fl Neut % (Auto) 92.0 H (34.0-71.1) % Lymph % (Auto) 6.3 L (19.3-51.7) % [place] % (Auto) 1.3 L (4.7-12.5) % Eos % (Auto) 0 L (0.7-5.8) Baso % (Auto) 0.2 (0.1-1.2) % Neut # (Auto) 5.58 (1.56-6.13) K/mm3 Lymph # (Auto) 0.38 L (1.18-3.74) K/mm3 [place] # (Auto) 0.08 L (0.24-0.36) K/mm3 Eos # (Auto) 0.00 L (0.04-0.36) K/mm3 Baso # (Auto) 0.01 (0.01-0.08) K/mm3 Manual Slide Review Abnormal smear Sodium 139 (136-145) mEq/L Potassium 3.5 (3.5-5.1) mEq/L Chloride 102 (98-107) mEq/L Carbon Dioxide 24 (21-32) mEq/L Anion Gap 16.5 H (5-15) BUN 8 (7-18) mg/dL Creatinine 1.1 H (0.55-1.02) mg/dL Est Cr Clr Drug Dosing 67.43 mL/min Estimated GFR (MDRD) 56 (>60) mL/min BUN/Creatinine Ratio 7.3 L (14-18) Glucose 116 H (74-106) mg/dL Calcium 9.0 (8.5-10.1) mg/dL Total Bilirubin 1.9 H (0.2-1.0) mg/dL AST 185 H (15-37) U/L ALT 98 H (14-59) U/L Alkaline Phosphatase 99 (46-116) U/L Troponin I < 0.017 (0.00-0.056) ng/mL Total Protein 7.7 (6.4-8.2) g/dl Albumin 4.2 (3.4-5.0) g/dl Globulin 3.5 gm/dL Albumin/Globulin Ratio 1.2 (1-2) Meds: Medications Generic Name Dose Route Start Last Admin Trade Name Freq PRN Reason Stop Dose Admin Sodium Chloride 45 mls @ 40 mls/hr 12/03/19 16:45 12/03/19 19:50 Normal Saline IV 40 mls/hr ASDIRECTED ANA Administration Sodium Chloride 10 ml 12/03/19 15:57 12/03/19 18:16 Saline Flush FLUSH 10 ml ASDIRECTED PRN Administration Keep Vein Open Sodium Chloride 10 ml 12/03/19 16:43 12/03/19 19:49 Saline Flush FLUSH 10 ml ONETIME PRN Administration Keep Vein Open Discontinued Medications Generic Name Dose Route Start Last Admin Trade Name José Miguel PRN Reason Stop Dose Admin Iopamidol 100 ml 12/03/19 16:43 12/03/19 19:49 Isovue-370 (76%) IVPUSH 12/03/19 16:44 100 ml ONETIME ONE Administration Ketorolac Tromethamine 30 mg 12/03/19 18:04 12/03/19 18:17 Toradol IVPUSH 12/03/19 18:05 30 mg ONETIME ONE Administration - Re-Assessments/Exams Free Text/Narrative Re-Assessment/Exam: 12/03/19 20:20 Assumed care at change of shift. Her CT is negative her troponin is negative. She is on 4 L of oxygen at home she is done very well on 2 L of oxygen here.. We will discharge at this point on 2 L of oxygen Departure - Departure Time of Disposition: 20:21 Sepsis Event Note (ED) - Focused Exam Vital Signs: Vital Signs Temp Pulse Resp BP Pulse Ox 12/03/19 15:23 36.1 C 116 H 20 120/74 96
[2019-12-03] MEDS: Sodium Chloride 0.9% 10 ML Syringe FLUSH PRN ×2 (18:16→19:49)
--- NOTE | 2019-12-03 20:05 | CT ---
CT chest Technique: Multiple axial sections through the chest were obtained. Intravenous contrast was utilized. Study performed as a pulmonary angiogram protocol. Comparison: Previous CT chest performed as a pulmonary angiogram dated 11/04/19. Findings: Pulmonary arteries are moderately well opacified. No filling defects are seen to indicate pulmonary embolism. Mediastinum and hilar regions show no adenopathy. No pericardial thickening is seen. Visualized upper abdominal structures shows no discrete abnormality. Lung window settings were reviewed. Diffuse haziness is noted throughout both lungs. Findings are not as severe as on prior study but findings have not resolved completely to baseline chest x-ray. No new areas of abnormal parenchymal density are seen. Impression: 1. Diffuse increased haziness throughout both lungs. Findings have not resolved but are improved from previous chest CT. Findings presumably due to slowly resolving Covid pneumonia. 2. No findings of pulmonary embolism. Nothing acute is appreciated. Diagnostic code #3 This report was dictated in MDT
== END 2019-12-03 20:40 | disposition home or self-care (01) ==
LOC: JD.ED 15:05
DX: U07.1 COVID-19 (principal); J12.89 Other viral pneumonia; R00.0 Tachycardia, unspecified; J45.909 Unspecified asthma, uncomplicated; E66.9 Obesity, unspecified; Z88.6 Allergy status to analgesic agent; Z90.49 Acquired absence of other specified parts of digestive tract; Z98.51 Tubal ligation status; Z79.899 Other long term (current) drug therapy; Z87.891 Personal history of nicotine dependence; Z68.42 Body mass index [BMI] 45.0-49.9, adult
CPT/HCPCS: 36415; 71275; 80053; 84484; 85025; 87635; 93005; 94762; 96361; 96374; 99285; J1885; J7050; Q9967; 93010; 99282; U0002

== ENCOUNTER 2019-12-07 06:41 | Emergency (ER) | payer MEDICAID ==
[2019-12-07 07:02] VITALS: BP 98/52; PULSE 114
--- NOTE | 2019-12-07 07:13 | EDM.PDOC ---
ED HPI GENERAL MEDICAL PROBLEM - General Chief Complaint: Respiratory Problem Stated Complaint: FEVER,HEART RACING,HEADACHE Time Seen by Provider: 12/07/19 07:03 Source of Information: Reports: Patient History Limitations: Reports: No Limitations - History of Present Illness INITIAL COMMENTS - FREE TEXT/NARRATIVE: 39-year-old female attends the ED aware that her heart is racing. Heart rate on the monitor is 117/min. Identifies that she spiked a fever on the evening of December 04. Yesterday she was running a temperature as high as 102. She did send the walk-in clinic yesterday afternoon was started on amoxicillin 500 mg 3 times daily. She was complaining of right-sided face pain and right-sided ear pain at that time. She denies cough or sputum production. No dysuria urgency or frequency does have a pain in her right mid back that is worsened by deep breathing. This developed over the last 12 to 18 hours. Of note the patient was diagnosed with COVID-19 October 27. She was tested October 24. She subsequently developed hypoxemia requiring admission to the hospital on 27 October and was here until the . She was treated with intravenous wilfredo to severe, dexamethasone IV and oxygen in the hospital. She also did receive convalescent plasma. She continues on oxygen 1 L/min by nasal cannula on intermittent basis as she is aware that she still develops low O2 sats in the upper 80s with exertion. Patient is not using her inhalers very much anymore as they aggravate her heart rate. She denies feeling dizzy lightheaded. She did not eat all that much yesterday or the day before. She believes she may have fallen behind on some of her fluid intake as well. She has been awake since 0300 hrs. this morning. She did take Tylenol at 0500 hrs. this morning. She is afebrile at present .Actually cool and clammy to touch. Patient has had 3 COVID tests thus far and remains positive. She had a repeat COVID test yesterday and has not got the results back yet. Onset: Gradual Onset Date: 12/05/19 Onset Time: 19:00 Duration: Hour(s): Location: Reports: Generalized (Development of fever.) Quality: Reports: Other (Generalized myalgia. Tachycardia with subjective mild dyspnea. Temperature at home reportedly 102 degrees this morning.) Severity: Moderate Improves with: Reports: Medication (No does bring down her temperature.) Worsens with: Reports: Movement (Feels more dyspneic on walking.) Context: Reports: Other (Resolving COVID-19 illness.). Denies: Activity, Exercise, Lifting, Sick Contact, Trauma Associated Symptoms: Reports: Chest Pain (Mild pain right upper back area size of a nickel), Diaphoresis, Fever/Chills (102 reportedly earlier this morning.), Headaches, Loss of Appetite, Malaise, Weakness. Denies: Confusion, Cough ( that is aggravated by deep breathing.), cough w sputum, Nausea/Vomiting, Rash, Seizure, Shortness of Breath, Syncope Treatments [employer] CL[employer] MANAGER: Reports: Acetaminophen Headache Pain Score (Numeric/FACES): 8 - Related Data Allergies Allergy/AdvReac Type Severity Reaction Status Date / Time hydromorphone [From Dilaudid] AdvReac Mild Change Verified 12/07/19 06:56 Mental Status morphine AdvReac Mild Headache Verified 12/07/19 06:56 Home Meds: Home Meds Mometasone/Formoterol [Dulera 200 Mcg-5 Mcg Inhaler] 2 puff INH BID 07/27/19 [History] Melatonin 20 mg PO BEDTIME PRN 11/01/19 [History] Cholecalciferol (Vitamin D3) [Vitamin D3] 5,000 unit PO DAILY #30 tablet 11/05/19 [Rx] Simethicone 80 mg PO Q6H #30 tab.chew 11/05/19 [Rx] Albuterol Sulfate [Albuterol Sulfate Hfa] 1 puff PO ASDIRECTED 12/03/19 [History] levoFLOXacin [Levaquin] 500 mg PO DAILY #9 tab 12/07/19 [Rx] Past Medical History - Past Health History Medical/Surgical History: Denies Medical/Surgical History HEENT History: Reports: Impaired Vision Other HEENT History: ringing of ears Cardiovascular History: Reports: Other (See Below) Other Cardiovascular History: chest pains with anxiety attacks Respiratory History: Reports: Asthma Gastrointestinal History: Reports: Helicobacter Pylori 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: Reports: Other (See Below) Other 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: ovarian cyst, hydrosalpinx, menorrhagia, pelvic pain and pressure Musculoskeletal History: Reports: Back Pain, Chronic, Neck Pain, Chronic Psychiatric History: Reports: Addiction, Anxiety, Panic Attack Other Psychiatric History: patient has hx of alcohol abuse Endocrine/Metabolic History: Reports: Obesity/BMI 30+, Other (See Below) - Infectious Disease History Infectious Disease History: Reports: Novel Coronavirus - Past Surgical History HEENT Surgical History: Reports: Other (See Below) GI Surgical History: Reports: Cholecystectomy Female Surgical History: Reports: D&C, Tubal Ligation Social & Family History - Family History Family Medical History: Noncontributory - Caffeine Use Caffeine Use: Reports: Coffee, Tea - Living Situation & Occupation Living situation: Reports: Single, with Significant Other (Boyfriend), with Fam ulises (2 kids) Occupation: Unemployed ED ROS GENERAL - Review of Systems Review Of Systems: See Below Constitutional: Reports: Fever, Malaise, Weakness, Fatigue, Decreased Appetite HEENT: Reports: Ear Pain (Right ear pain.). Denies: Vision Change Respiratory: Reports: Shortness of Breath, Pleuritic Chest Pain. Denies: Wheezing (On exertion primarily.), Cough (Mild pruritic pain size of a nickel on her right upper back.), Sputum, Hemoptysis Cardiovascular: Reports: Chest Pain, Dyspnea on Exertion, Lightheadedness, Palpitations. Denies: Blood Pressure Problem (Right upper mid back.), Claudication, Edema, Orthopnea Endocrine: Reports: Fatigue GI/Abdominal: Reports: Decreased Appetite, Nausea. Denies: Diarrhea, Vomiting (Patient on nausea) : Reports: No Symptoms Musculoskeletal: Reports: Other (Normalized musculoskeletal pain particular low back pain when her temperature is high.) Skin: Reports: No Symptoms Neurological: Reports: Dizziness, Headache (Mild.), Difficulty Walking, Weakness. Denies: Confusion, Numbness, Paresthesia, Pre-Existing Deficit, Seizure, Syncope, Tingling (Moderate.), Tremors, Trouble Speaking (Due to weakness and shortness of breath.), Change in Speech Psychiatric: Reports: No Symptoms Hematologic/Lymphatic: Reports: No Symptoms Immunologic: Reports: No Symptoms ED EXAM, GENERAL - Physical Exam Exam: See Below Exam Limited By: No Limitations General Appearance: Alert, WD/WN, No Apparent Distress, Other (Patient is cool a nd clammy to touch. Temperature is 36.8 with a heart rate of 114 to 120/min sinus rhythm on the monitor. Respiratory is 18 with O2 sats of 898 to 99%. BP 98/52.) Eye Exam: Bilateral Eye: Normal Inspection, PERRL Ears: Normal TMs Throat/Mouth: Normal Inspection, Normal Lips, Normal Teeth, Normal Oropharynx Head: Atraumatic, Normocephalic Neck: Normal Inspection, Supple, Non-Tender, Full Range of Motion. No: Carotid Bruit, Lymphadenopathy (L), Lymphadenopathy (R) Respiratory/Chest: No Respiratory Distress, Lungs Clear, Normal Breath Sounds, No Accessory Muscle Use. No: Rales, Rhonchi, Wheezing Cardiovascular: Regular Rate, Rhythm, No Edema, No Gallop, No Murmur, No Rub, Tachycardia (Tachycardia at rest 114 120/min.) Peripheral Pulses: 3+: Carotid (L), Carotid (R) GI/Abdominal: Normal Bowel Sounds, Soft, Non-Tender, No Organomegaly, No Mass, Pelvis Stable, Other (Moderately obese.) Back Exam: Normal Inspection. No: Full Range of Motion, CVA Tenderness (L), CVA Tenderness (R), Vertebral Tenderness Extremities: Normal Inspection, Normal Range of Motion, Non-Tender, No Pedal Edema Neurological: Alert, Oriented, CN II-XII Intact, Normal Cognition Psychiatric: Normal Affect, Normal Mood Skin Exam: Cool (Cool and clammy on my assessment.). No: Diaphoretic, Ecchymosis, Erythema, Increased Warmth EKG INTERPRETATION EKG Date: 12/07/19 Time: 07:52 Rhythm: Other (Sinus tachycardia) Rate (Beats/Min): 105 [place]: RAD-Right [place] Deviation (142 degrees) P-Wave: Enlarged (Consider left atrial hypertrophy) QRS: Other (Decreased voltage throughout the precordial leads. Early R wave transition V2 consider right ventricular hypertrophy.) ST-T: Other (T wave inversion V1 to V4 and flattening in V5 and V6 consider anterolateral ischemia.) QT: Prolonged (Minimally prolonged) EKG Interpretation Comments: Abnormal ECG Course - Vital Signs Last Recorded V/S: Last Vital Signs Temp 36.8 C 12/07/19 06:56 Pulse 114 H 12/07/19 06:56 Resp 18 12/07/19 06:56 BP 98/52 L 12/07/19 06:56 Pulse Ox 98 12/07/19 06:56 - Orders/Labs/Meds Orders: Active Orders 24 hr Category Date Time Status EKG Documentation Completion [RC] STAT Care 12/07/19 07:18 Active Chest 1V Frontal [CR] Stat Exams 12/07/19 07:16 Taken Dextrose 5%-0.9% NaCl [Dextrose 5%-Normal Saline] 1,000 Med 12/07/19 07:15 Active ml IV ASDIRECTED Medication Orders Dextrose/Sodium Chloride (Dextrose 5%-Normal Saline) 1,000 mls @ 999 mls/hr IV ASDIRECTED ANA Last Admin: 12/07/19 08:07 Dose: 999 mls/hr Documented by: SARAH Labs: Laboratory Tests 12/07/19 12/07/19 12/07/19 Range/Units 08:00 08:00 08:00 WBC 5.87 (3.98-10.04) K/mm3 RBC 4.17 (3.98-5.22) M/mm3 Hgb 12.4 (11.2-15.7) gm/dl Hct 37.1 (34.1-44.9) % MCV 89.0 (79.4-94.8) fl MCH 29.7 (25.6-32.2) pg MCHC 33.4 (32.2-35.5) g/dl RDW Std Deviation 51.4 H (36.4-46.3) fL Plt Count 143 L (182-369) K/mm3 MPV 10.3 (9.4-12.3) fl Neut % (Auto) 71.1 (34.0-71.1) % Lymph % (Auto) 20.3 (19.3-51.7) % [place] % (Auto) 8.0 (4.7-12.5) % Eos % (Auto) 0.2 L (0.7-5.8) Baso % (Auto) 0.2 (0.1-1.2) % Neut # (Auto) 4.18 (1.56-6.13) K/mm3 Lymph # (Auto) 1.19 (1.18-3.74) K/mm3 [place] # (Auto) 0.47 H (0.24-0.36) K/mm3 Eos # (Auto) 0.01 L (0.04-0.36) K/mm3 Baso # (Auto) 0.01 (0.01-0.08) K/mm3 PT (9.7-11.7) SECONDS INR APTT (22-31) SECONDS D-Dimer, Quantitative 2.27 H (0.19-0.50) mg/L Sodium 136 (136-145) mEq/L Potassium 3.4 L (3.5-5.1) mEq/L Chloride 103 (98-107) mEq/L Carbon Dioxide 21 (21-32) mEq/L Anion Gap 15.4 H (5-15) BUN 10 (7-18) mg/dL Creatinine 1.0 (0.55-1.02) mg/dL Est Cr Clr Drug Dosing TNP Estimated GFR (MDRD) > 60 (>60) mL/min BUN/Creatinine Ratio 10.0 L (14-18) Glucose 130 H (74-106) mg/dL Calcium 8.4 L (8.5-10.1) mg/dL Magnesium 1.9 (1.8-2.4) mg/dl Ferritin (8-252) ng/ml Total Bilirubin 0.6 (0.2-1.0) mg/dL AST 39 H (15-37) U/L ALT 74 H (14-59) U/L Alkaline Phosphatase 146 H (46-116) U/L Lactate Dehydrogenase 247 H (81-234) U/L Troponin I < 0.017 (0.00-0.056) ng/mL C-Reactive Protein 17.1 H* (<1.0) mg/dL NT-Pro-B Natriuret Pep (0-125) pg/mL Total Protein 6.5 (6.4-8.2) g/dl Albumin 3.1 L (3.4-5.0) g/dl Globulin 3.4 gm/dL Albumin/Globulin Ratio 0.9 L (1-2) Urine Color (Yellow) Urine Appearance (Clear) Urine pH (5.0-8.0) Ur Specific [place] (1.005-1.030) Urine Protein (Negative) Urine Glucose (UA) (Negative) Urine Ketones (Negative) Urine Occult Blood (Negative) Urine Nitrite (Negative) Urine Bilirubin (Negative) Urine Urobilinogen (0.2-1.0) Ur Leukocyte Esterase (Negative) Urine RBC (0-5) /hpf Urine WBC (0-5) /hpf Ur Squamous Epith Cells (0-5) /hpf Urine Bacteria (FEW) /hpf Urine Mucus (FEW) /hpf 12/07/19 12/07/19 12/07/19 Range/Units 08:00 08:00 08:00 WBC (3.98-10.04) K/mm3 RBC (3.98-5.22) M/mm3 Hgb (11.2-15.7) gm/dl Hct (34.1-44.9) % MCV (79.4-94.8) fl MCH (25.6-32.2) pg MCHC (32.2-35.5) g/dl RDW Std Deviation (36.4-46.3) fL Plt Count (182-369) K/mm3 MPV (9.4-12.3) fl Neut % (Auto) (34.0-71.1) % Lymph % (Auto) (19.3-51.7) % [place] % (Auto) (4.7-12.5) % Eos % (Auto) (0.7-5.8) Baso % (Auto) (0.1-1.2) % Neut # (Auto) (1.56-6.13) K/mm3 Lymph # (Auto) (1.18-3.74) K/mm3 [place] # (Auto) (0.24-0.36) K/mm3 Eos # (Auto) (0.04-0.36) K/mm3 Baso # (Auto) (0.01-0.08) K/mm3 PT 10.3 (9.7-11.7) SECONDS INR 0.96 APTT 27 (22-31) SECONDS D-Dimer, Quantitative (0.19-0.50) mg/L Sodium (136-145) mEq/L Potassium (3.5-5.1) mEq/L Chloride (98-107) mEq/L Carbon Dioxide (21-32) mEq/L Anion Gap (5-15) BUN (7-18) mg/dL Creatinine (0.55-1.02) mg/dL Est Cr Clr Drug Dosing Estimated GFR (MDRD) (>60) mL/min BUN/Creatinine Ratio (14-18) Glucose (74-106) mg/dL Calcium (8.5-10.1) mg/dL Magnesium (1.8-2.4) mg/dl Ferritin 90 (8-252) ng/ml Total Bilirubin (0.2-1.0) mg/dL AST (15-37) U/L ALT (14-59) U/L Alkaline Phosphatase (46-116) U/L Lactate Dehydrogenase (81-234) U/L Troponin I (0.00-0.056) ng/mL C-Reactive Protein (<1.0) mg/dL NT-Pro-B Natriuret Pep 322 H (0-125) pg/mL Total Protein (6.4-8.2) g/dl Albumin (3.4-5.0) g/dl Globulin gm/dL Albumin/Globulin Ratio (1-2) Urine Color (Yellow) Urine Appearance (Clear) Urine pH (5.0-8.0) Ur Specific [place] (1.005-1.030) Urine Protein (Negative) Urine Glucose (UA) (Negative) Urine Ketones (Negative) Urine Occult Blood (Negative) Urine Nitrite (Negative) Urine Bilirubin (Negative) Urine Urobilinogen (0.2-1.0) Ur Leukocyte Esterase (Negative) Urine RBC (0-5) /hpf Urine WBC (0-5) /hpf Ur Squamous Epith Cells (0-5) /hpf Urine Bacteria (FEW) /hpf Urine Mucus (FEW) /hpf 12/07/19 Range/Units 09:20 WBC (3.98-10.04) K/mm3 RBC (3.98-5.22) M/mm3 Hgb (11.2-15.7) gm/dl Hct (34.1-44.9) % MCV (79.4-94.8) fl MCH (25.6-32.2) pg MCHC (32.2-35.5) g/dl RDW Std Deviation (36.4-46.3) fL Plt Count (182-369) K/mm3 MPV (9.4-12.3) fl Neut % (Auto) (34.0-71.1) % Lymph % (Auto) (19.3-51.7) % [place] % (Auto) (4.7-12.5) % Eos % (Auto) (0.7-5.8) Baso % (Auto) (0.1-1.2) % Neut # (Auto) (1.56-6.13) K/mm3 Lymph # (Auto) (1.18-3.74) K/mm3 [place] # (Auto) (0.24-0.36) K/mm3 Eos # (Auto) (0.04-0.36) K/mm3 Baso # (Auto) (0.01-0.08) K/mm3 PT (9.7-11.7) SECONDS INR APTT (22-31) SECONDS D-Dimer, Quantitative (0.19-0.50) mg/L Sodium (136-145) mEq/L Potassium (3.5-5.1) mEq/L Chloride (98-107) mEq/L Carbon Dioxide (21-32) mEq/L Anion Gap (5-15) BUN (7-18) mg/dL Creatinine (0.55-1.02) mg/dL Est Cr Clr Drug Dosing Estimated GFR (MDRD) (>60) mL/min BUN/Creatinine Ratio (14-18) Glucose (74-106) mg/dL Calcium (8.5-10.1) mg/dL Magnesium (1.8-2.4) mg/dl Ferritin (8-252) ng/ml Total Bilirubin (0.2-1.0) mg/dL AST (15-37) U/L ALT (14-59) U/L Alkaline Phosphatase (46-116) U/L Lactate Dehydrogenase (81-234) U/L Troponin I (0.00-0.056) ng/mL C-Reactive Protein (<1.0) mg/dL NT-Pro-B Natriuret Pep (0-125) pg/mL Total Protein (6.4-8.2) g/dl Albumin (3.4-5.0) g/dl Globulin gm/dL Albumin/Globulin Ratio (1-2) Urine Color [place] H (Yellow) Urine Appearance Slt cloudy H (Clear) Urine pH 7.0 (5.0-8.0) Ur Specific [place] 1.015 (1.005-1.030) Urine Protein 1+ H (Negative) Urine Glucose (UA) 1+ H (Negative) Urine Ketones Negative (Negative) Urine Occult Blood 3+ H (Negative) Urine Nitrite Negative (Negative) Urine Bilirubin Negative (Negative) Urine Urobilinogen 0.2 (0.2-1.0) Ur Leukocyte Esterase Negative (Negative) Urine RBC Too numerous to cnt H (0-5) /hpf Urine WBC 0-5 (0-5) /hpf Ur Squamous Epith Cells 0-5 (0-5) /hpf Urine Bacteria Few (FEW) /hpf Urine Mucus Not seen (FEW) /hpf Meds: Medications Generic Name Dose Route Start Last Admin Trade Name Freq PRN Reason Stop Dose Admin Dextrose/Sodium Chloride 1,000 mls @ 999 mls/hr 12/07/19 07:15 12/07/19 08:07 Dextrose 5%-Normal Saline IV 999 mls/hr ASDIRECTED ANA Administration Discontinued Medications Generic Name Dose Route Start Last Admin Trade Name Freq PRN Reason Stop Dose Admin Levofloxacin/Dextrose 750 mg/ 150 mls @ 100 mls/hr 12/07/19 08:09 12/07/19 08:16 Premix IV 12/07/19 09:38 100 mls/hr ONETIME ONE Administration - Radiology Interpretation Free Text/Narrative:: 39-year-old female presents the ED for evaluation of fever as high as 102 degrees developing over the last 36 hours. Of note the patient developed COVID- 19 illness October 24 proved +October 27 and admitted to our hospital until 04 November. Her treatment included REM to severe, dexamethasone IV and convalescent plasma. She went home on oxygen at 4 L/min by nasal cannula. She remains on oxygen at 1 L/min. She has had 3 COVID tests since the original 1 and she remains positive. It is unlikely that she is still setting the virus. She was seen through the walk-in clinic yesterday and placed on amoxicillin 500 mg 3 times daily for unknown reason. She states temperature was 102 degrees at 4:00 this morning. She took Tylenol at 0500 hrs. On assessment here she is cool and clammy to touch. ENT exam is normal. Chest is clear to all station percussion. She is tachycardic at rest 117 to 120/min. Tongue is mildly dry and coated. Lungs are clear. Plan: IV will be D5 normal saline. Patient does not appear septic. She will have markers for COVID-19 such as ferritin, LDH and d-dimer done. Troponin and ECG as well. Chest x-ray and labs. - Re-Assessments/Exams Free Text/Narrative Re-Assessment/Exam: 12/07/19 08:05 chest x-ray done portably reveals a infiltrate left lower lobe compatible with a segmental lower lobe pneumonia. There remains mild diffuse inflammation throughout the remainder of the lung ortega diffuse groundglass appearance. Of note it is improved when compared to chest x-ray done November 18, 2019. Heart size is within normal limits. O2 sats remained 100% on room air. Her current heart rate is down to 101. 12/07/19 08:10 IV has now been established. Will order Levaquin 750 mg IV 12/07/19 08:29 O2 sats remained 98%. Heart rate is down to 86/min sinus rhythm. Free Text/Narrative Re-Assessment/Exam: 12/07/19 08:39 White count is 5.87. Differential shows 71% neutrophils. Hemoglobin is 12.4 with hematocrit of 37.1. Platelet count is still low at 143,000 12/07/19 08:58 PT is 10.3 with an INR of 0.96. PTT is 27. D-dimer is elevated at 2.27. Sodium 136 with potassium 3.4. Chloride is 103 with a bicarb of 21. Anion gap is 15.4. BUN is 10 with a creatinine of 1.0 and a GFR greater than 60. Glucose 130 with a calcium of 8.4 slightly low. Magnesium is 1.9. Liver function shows a bilirubin of 0.6 AST is 39 and ALT is 74. Alk phos days is mildly elevated at 146. LDH remains elevated at 247. Troponin I is less than 0.017. C-reactive protein is pending. Total protein 6.5 with an albumin fraction of 3.1. Suspect elevated d-dimer is due to pneumonia left lower lobe. With O2 sats of 99 to 100% on room air is unlikely she has suffered any significant pulmonary embolism. 12/07/19 09:26 C-reactive protein is markedly elevated at 17.1. BNP is mildly elevated at 322. O2 sats remained 98% on room air. Heart rate remains in the mid 80s.10 is 90-- normal. Urinalysis shows 1+ proteinuria 1+ glucosuria 3+ occult blood with too numerous to count RBCs. No white cells evident. Requires urinalysis follow-up. 12/07/19 10:00: Patient has completed antibiotic Levaquin 750 mg IV. She will discontinue the amoxicillin she was started on yesterday for right ear pain. She will replaced with Levaquin 500 mg once daily for another 9 days. Suggest follow-up with her primary care provider in 10 days time. She reports she has a date pitter appointment next week as well which she is to keep. Lab tests reveal there is still inflammation going on. CRP of 17.2 suggest underlying infection. LDH is also mildly elevated. D-dimer was elevated at 2.27. She had a CT pulmonary angiogram within the last week that was normal. 2 sats are 98 to 100% on room air. Elevated d-dimer is felt to be secondary to pneumonia left lower lobe. Advise follow-up with her primary care provider in 10 days time for repeat chest x-ray and urinalysis at that time. Departure - Departure Time of Disposition: 10:04 Disposition: Home, Self-Care 01 Condition: Fair Clinical Impression: Recurrent fever Pneumonia Qualifiers: Pneumonia type: due to unspecified organism Laterality: left Lung location: lower lobe of lung Qualified Code(s): J18.9 - Pneumonia, unspecified organism - Discharge Information *PRESCRIPTION DRUG MONITORING PROGRAM REVIEWED*: Not Applicable *COPY OF PRESCRIPTION DRUG MONITORING REPORT IN PATIENT ISAC: Not Applicable Prescriptions: levoFLOXacin [Levaquin] 500 mg PO DAILY #9 tab Referrals: Maylin Lauren MD [Primary Care Provider] - Forms: ED Department Discharge Additional Instructions: Evaluation in the emergency room today in regards to recurrence of fever during recovery from COVID-19 illness. Diagnosis of COVID-19 dating back to October 27 with symptom development October 24. You required initial hospitalization for 8 days. Development of fever 2 days ago and up to 102 degrees during the night. Right marilyn-facial pain right ear pain without evidence of ear infection. O2 sats remained 98 to 100% on room air. They still might go down with exertion and walking but are normal at rest. May use oxygen at 1 L as needed. Chest x- ray done today reveals a groundglass appearance to all lung ortega still suggesting resolving COVID 19 viral pneumonitis. There is a segment of the left lower lobe that has pneumonia. Lab tests revealed there is still significant inflammation related to COVID-19 illness. Treatment with Levaquin 750 mg intravenously while in the ED. Continue Motrin and/or Tylenol as needed for fever relief. Suggest antibiotic Levaquin 500 mg tablet once daily for 9 more days starting tomorrow morning. Suggest follow-up with your personal care provider in 10 days time. Sepsis Event Note (ED) - Evaluation Sepsis Screening Result: No Definite Risk - Focused Exam Vital Signs: Vital Signs Temp Pulse Resp BP Pulse Ox 12/07/19 06:56 36.8 C 114 H 18 98/52 L 98 - My Orders Last 24 Hours: My Active Orders 12/07/19 07:15 Dextrose 5%-0.9% NaCl [Dextrose 5%-Normal Saline] 1,000 ml IV ASDIRECTED 12/07/19 07:16 Chest 1V Frontal [CR] Stat 12/07/19 07:18 EKG Documentation Completion [RC] STAT - Assessment/Plan Last 24 Hours: My Active Orders 12/07/19 07:15 Dextrose 5%-0.9% NaCl [Dextrose 5%-Normal Saline] 1,000 ml IV ASDIRECTED 12/07/19 07:16 Chest 1V Frontal [CR] Stat 12/07/19 07:18 EKG Documentation Completion [RC] STAT
[2019-12-07] MEDS ORDERED: Dextrose 5%-0.9% NaCl 1,000 ML IV SCH (07:15)
[2019-12-07] MEDS ORDERED: Levofloxacin/Dextrose 5%-Water 750 MG in Premix Bag 1 BAG IV ONE (08:09)
--- NOTE | 2020-01-11 11:27 | CR ---
PROCEDURE INFORMATION: Exam: XR Chest, 1 View Exam date and time: 12/07/2019 7:18 AM Age: 39 years old Clinical indication: Fever; Chest pain; Other: Right sided posterior; Patient HX: 6 weeks post covid- 19 diagnosis TECHNIQUE: Imaging protocol: XR of the chest Views: 1 view. COMPARISON: DX Chest 2V 11/18/2019 9:54 PM FINDINGS: Lungs: Bilateral ground-glass airspace disease has improved since the prior examination. Pleural space: Unremarkable. No pleural effusion. No pneumothorax. Heart/Mediastinum: Unremarkable. No cardiomegaly. Bones/joints: Unremarkable. IMPRESSION: Bilateral ground-glass airspace disease has improved since the prior examination. Thank you for allowing us to participate in the care of your patient. Dictated and Authenticated by: Jayce Ashley MD 01/08/2020 5:39 AM Central Time ([place] & [place]) FANNY
== END 2019-12-07 10:33 | disposition home or self-care (01) ==
LOC: JD.ED 06:41
DX: J18.9 Pneumonia, unspecified organism (principal); R00.0 Tachycardia, unspecified; R79.1 Abnormal coagulation profile; R74.02 Elevation of levels of lactic acid dehydrogenase [LDH]; J45.909 Unspecified asthma, uncomplicated; E66.9 Obesity, unspecified; Z90.49 Acquired absence of other specified parts of digestive tract; Z98.51 Tubal ligation status; Z88.5 Allergy status to narcotic agent; Z79.899 Other long term (current) drug therapy
CPT/HCPCS: 36415; 71045; 80053; 81001; 82728; 83615; 83735; 83880; 84484; 85025; 85379; 85610; 85730; 86140; 93005; 96365; 99285; J1956; J7042; 93010; 99284

== ENCOUNTER 2020-01-08 17:01 | Emergency (ER) | payer MEDICAID ==
[2020-01-08 17:21] VITALS: BP 132/81; PULSE 80
[2020-01-08] MEDS ORDERED: Sodium Chloride 0.9% 1,000 ML IV STA (17:39)
[2020-01-08] MEDS ORDERED: Ondansetron 4 MG/2 ML SDV IVPUSH ONE (17:39)
[2020-01-08] MEDS ORDERED: LORazepam 2 MG/ML SDV IVPUSH ONE (17:39)
--- NOTE | 2020-01-08 18:22 | EDM.PDOCBH ---
ED HPI GENERAL MEDICAL PROBLEM - General Chief Complaint: Drug or Alcohol Abuse Stated Complaint: ALCOHOL WITHDRAWAL Time Seen by Provider: 01/08/20 17:29 Source of Information: Reports: Patient, RN Notes Reviewed History Limitations: Reports: No Limitations - History of Present Illness INITIAL COMMENTS - FREE TEXT/NARRATIVE: Patient is a 39-year-old female presenting to the emergency department for medical clearance to go to the residential crisis center. Patient states she has a long history of alcohol abuse which she has been trying to stop at home. She has been overall successful, however she relapsed on her sobriety 2 weeks ago. She states that the worst point, she would drink a case of beer per day, however she had been sober up until 2 weeks ago. She had one episode of binge drinking 2 weeks ago and then another last evening. Her last drink was around 4:00 this morning. She states that she feels anxious and nauseous at this time. She denies any history of DTs or seizures with withdrawal. She is having no visual or auditory hallucinations. She has recognized that she needs long-term treatment for her alcoholism. She contacted [facility] and they recommend that she come here for evaluation elation prior to going to the residential crisis center. She denies any illicit drug use. - Related Data Allergies Allergy/AdvReac Type Severity Reaction Status Date / Time hydromorphone [From Dilaudid] AdvReac Mild Change Verified 01/08/20 17:21 Mental Status morphine AdvReac Mild Headache Verified 01/08/20 17:21 Home Meds: Home Meds Mometasone/Formoterol [Dulera 200 Mcg-5 Mcg Inhaler] 2 puff INH BID 07/27/19 [History] Melatonin 20 mg PO BEDTIME PRN 11/01/19 [History] Cholecalciferol (Vitamin D3) [Vitamin D3] 5,000 unit PO DAILY #30 tablet 11/05/19 [Rx] Albuterol Sulfate [Albuterol Sulfate Hfa] 1 puff PO ASDIRECTED 12/03/19 [History] Calcium Carbonate [Calcium] 0 mg PO DAILY 01/08/20 [History] Ferrous Sulfate [Iron] 0 mg PO DAILY 01/08/20 [History] Fish Oil/[place]-3 Fatty Acids [Fish Oil 1,000 MG] 1 each PO DAILY 01/08/20 [History] hydrOXYzine pamoate [Hydroxyzine Pamoate] 50 mg PO TID 01/08/20 [History] Past Medical History - Past Health History Medical/Surgical History: Denies Medical/Surgical History HEENT History: Reports: Impaired Vision Other HEENT History: ringing of ears Cardiovascular History: Reports: Other (See Below) Other Cardiovascular History: chest pains with anxiety attacks Respiratory History: Reports: Asthma Gastrointestinal History: Reports: Helicobacter Pylori 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) Other FURNACE REPAIRER HELPER History: ovarian cyst, hydrosalpinx, menorrhagia, pelvic pain and pressure Musculoskeletal History: Reports: Back Pain, Chronic, Neck Pain, Chronic Psychiatric History: Reports: Addiction, Anxiety, Panic Attack Other Psychiatric History: patient has hx of alcohol abuse Endocrine/Metabolic History: Reports: Obesity/BMI 30+ - Infectious Disease History Infectious Disease History: Reports: Novel Coronavirus - Past Surgical History HEENT Surgical History: Reports: Other (See Below) GI Surgical History: Reports: Cholecystectomy Female Surgical History: Reports: D&C, Tubal Ligation Social & Family History - Family History Family Medical History: Noncontributory - Tobacco Use Tobacco Use Status *Q: Never Tobacco User - Caffeine Use Caffeine Use: Reports: Coffee, Tea - Recreational Drug Use Recreational Drug Use: No - Living Situation & Occupation Living situation: Reports: Single, with Significant Other (Boyfriend), with Family (2 kids) Occupation: Unemployed ED ROS GENERAL - Review of Systems Review Of Systems: See Below Constitutional: Reports: No Symptoms. Denies: Fever, Chills HEENT: Reports: No Symptoms Respiratory: Reports: No Symptoms Cardiovascular: Reports: No Symptoms Endocrine: Reports: No Symptoms GI/Abdominal: Reports: Nausea, Vomiting. Denies: Abdominal Pain, Diarrhea : Reports: No Symptoms Musculoskeletal: Reports: No Symptoms Skin: Reports: No Symptoms Neurological: Reports: Headache, Tremors. Denies: Dizziness Psychiatric: Reports: No Symptoms Hematologic/Lymphatic: Reports: No Symptoms Immunologic: Reports: No Symptoms ED EXAM, BEHAVIORAL HEALTH - Physical Exam Exam: See Below General Appearance: Alert, WD/WN, No Apparent Distress Respiratory/Chest: No Respiratory Distress, Lungs Clear, Normal Breath Sounds, No Accessory Muscle Use, Chest Non-Tender Cardiovascular: Normal Peripheral Pulses, Regular Rate, Rhythm, No Edema, No Gallop, No JVD, No Murmur, No Rub GI/Abdominal: Normal Bowel Sounds, Soft, Non-Tender, No Organomegaly, No Distention, No Abnormal Bruit, No Mass Neurological: Alert, Normal Mood/Affect, CN II-XII Intact, Normal Cognition, Normal Gait, Normal Reflexes, No Motor/Sensory Deficits, Oriented x 3 Psychiatric: Alert, Normal Affect, Normal Cognition, Normal Mood, Oriented, Other (Mildly anxious) Skin Exam: Warm, Dry, Intact, Normal color, No rash COURSE, BEHAVIORAL HEALTH COMP - Course Vital Signs: Last Vital Signs Temp 97.6 F 01/08/20 17:18 Pulse 80 01/08/20 17:18 Resp 16 01/08/20 17:18 BP 132/81 01/08/20 17:18 Pulse Ox 96 01/08/20 17:18 Orders, Labs, Meds: Active Orders 24 hr Category Date Time Status Oxygen Therapy [RC] PRN Care 01/08/20 17:30 Active Laboratory Tests 01/08/20 01/08/20 01/08/20 Range/Units 17:30 17:40 17:40 WBC 5.20 (3.98-10.04) K/mm3 RBC 3.93 L (3.98-5.22) M/mm3 Hgb 11.9 (11.2-15.7) gm/dl Hct 36.3 (34.1-44.9) % MCV 92.4 D (79.4-94.8) fl MCH 30.3 (25.6-32.2) pg MCHC 32.8 (32.2-35.5) g/dl RDW Std Deviation 51.2 H (36.4-46.3) fL Plt Count 339 D (182-369) K/mm3 MPV 8.9 L (9.4-12.3) fl Neut % (Auto) 53.9 (34.0-71.1) % Lymph % (Auto) 36.2 (19.3-51.7) % [place] % (Auto) 7.5 (4.7-12.5) % Eos % (Auto) 1.2 (0.7-5.8) Baso % (Auto) 1.0 (0.1-1.2) % Neut # (Auto) 2.81 (1.56-6.13) K/mm3 Lymph # (Auto) 1.88 (1.18-3.74) K/mm3 [place] # (Auto) 0.39 H (0.24-0.36) K/mm3 Eos # (Auto) 0.06 (0.04-0.36) K/mm3 Baso # (Auto) 0.05 (0.01-0.08) K/mm3 Sodium 144 (136-145) mEq/L Potassium 3.7 (3.5-5.1) mEq/L Chloride 108 H (98-107) mEq/L Carbon Dioxide 22 (21-32) mEq/L Anion Gap 17.7 H (5-15) BUN 3 L (7-18) mg/dL Creatinine 0.8 (0.55-1.02) mg/dL Est Cr Clr Drug Dosing 92.72 mL/min Estimated GFR (MDRD) > 60 (>60) mL/min BUN/Creatinine Ratio 3.8 L (14-18) Glucose 110 H (74-106) mg/dL Calcium 8.6 (8.5-10.1) mg/dL Total Bilirubin 0.4 (0.2-1.0) mg/dL AST 50 H (15-37) U/L ALT 71 H (14-59) U/L Alkaline Phosphatase 70 (46-116) U/L Total Protein 7.6 (6.4-8.2) g/dl Albumin 3.8 (3.4-5.0) g/dl Globulin 3.8 gm/dL Albumin/Globulin Ratio 1.0 (1-2) Urine Opiates Screen Negative (NUMFXH=812) Ur Buprenorphine Scrn Negative (CUTOFF=10) Ur Oxycodone Screen Negative (CQJ0BC=660) Urine Methadone Screen Negative (WZUMZC=378) Ur Propoxyphene Screen Negative (SOAGZK=603) Ur Barbiturates Screen Negative (TUWUWR=892) Ur Tricyclics Screen Negative (HNJUSO=828) Ur Phencyclidine Scrn Negative (CUTOFF=25) Ur Amphetamine Screen Negative (UOVKQX=258) U Methamphetamines Scrn Negative (GRAZAT=337) U Benzodiazepines Scrn Negative (SKDXAK=416) U Cocaine Metab Screen Negative (XYPWNR=933) U Marijuana (THC) Screen Negative (CUTOFF=50) Ethyl Alcohol 0.01 (0.00) gm% Medications Discontinued Medications Generic Name Dose Route Start Last Admin Trade Name Freq PRN Reason Stop Dose Admin Sodium Chloride 1,000 mls @ 999 mls/hr 01/08/20 17:39 01/08/20 18:13 Normal Saline IV 01/08/20 18:39 999 mls/hr NOW STA Administration Lorazepam 0.5 mg 01/08/20 17:39 01/08/20 18:13 Ativan IVPUSH 01/08/20 17:40 0.5 mg ONETIME ONE Administration Ondansetron HCl 4 mg 01/08/20 17:39 01/08/20 18:13 Zofran IVPUSH 01/08/20 17:40 4 mg ONETIME ONE Administration Medical Clearance: Patient is a 39-year-old female presenting to the emergency department for medical clearance to go to the residential crisis center for alcohol treatment. She reports binge drinking last evening. Prior to this she had not drank for 2 weeks. She feels mildly shaky but has no obvious tremor. She has nauseous. I do not feel that this is an actual alcohol withdrawal as her alcohol use has not been habitual as of recently. We will however treat her symptoms. Should get a 1 L bolus of normal saline, Zofran for nausea, and Ativan 0.5 mg IV for anxiety. I have ordered a CBC, CMP, CRP, EtOH, and urine drug screen. 01/08/20 19:01 Hematology was significant for an anion gap slightly elevated at 17.7, AST 50, ALT 71. Urine drug screen was negative. Blood alcohol was 0.01. Patient is feeling much better after the IV fluids, Zofran, and Ativan. I do not feel that she needs a tapering Ativan prescription as prior to yesterday, she was doing quite well without alcohol. I will give her Ativan 1 mg p.o. prior to discharge. We will discharge her to the residential crisis center for intake and subsequent treatment. Discharge instructions as documented. Departure - Departure Time of Disposition: 19:01 Disposition: Home, Self-Care 01 Condition: Good Clinical Impression: Alcohol abuse - Discharge Information *PRESCRIPTION DRUG MONITORING PROGRAM REVIEWED*: No *COPY OF PRESCRIPTION DRUG MONITORING REPORT IN PATIENT ISAC: No Referrals: Maylin Lauren MD [Primary Care Provider] - Forms: ED Department Discharge Additional Instructions: You were seen in the emergency department today for evaluation and medical clearance to go to the [facility]. Your work-up included blood work and urinalysis. Your work-up was found to be overall normal. Your liver enzymes were very minimally elevated. Potassium today was normal. While in the ER, you received a liter of IV fluids, Zofran for nausea, and Ativan for anxiety. This did improve your symptoms. You have been cleared to go to the [facility] crisis center. Recommend that you follow the treatment plan that is created for you. Return to ER as needed. Sepsis Event Note (ED) - Evaluation Sepsis Screening Result: No Definite Risk - Focused Exam Vital Signs: Vital Signs Temp Pulse Resp BP Pulse Ox 01/08/20 17:18 97.6 F 80 16 132/81 96 - My Orders Last 24 Hours: My Active Orders 01/08/20 17:30 Oxygen Therapy [RC] PRN - Assessment/Plan Last 24 Hours: My Active Orders 01/08/20 17:30 Oxygen Therapy [RC] PRN
[2020-01-08] MEDS ORDERED: LORazepam 1 MG Tab PO ONE (19:40)
== END 2020-01-08 20:11 | disposition home or self-care (01) ==
LOC: JD.ED 17:01
DX: F10.10 Alcohol abuse, uncomplicated (principal); J45.909 Unspecified asthma, uncomplicated; F41.9 Anxiety disorder, unspecified; E66.9 Obesity, unspecified; Z68.42 Body mass index [BMI] 45.0-49.9, adult; Z88.5 Allergy status to narcotic agent; Z79.899 Other long term (current) drug therapy
CPT/HCPCS: 36415; 80053; 80306; 80307; 85025; 96374; 96375; 99283; A9270; J2060; J2405; J7030

== ENCOUNTER 2020-01-31 00:23 | Emergency (ER) | payer MEDICAID ==
[2020-01-31 00:41] VITALS: BP 142/94; PULSE 87
[2020-01-31] MEDS ORDERED: Sodium Chloride 0.9% 10 ML Syringe FLUSH PRN (00:53)
[2020-01-31] MEDS ORDERED: Ondansetron 4 MG/2 ML SDV IVPUSH ONE (00:54)
[2020-01-31] MEDS ORDERED: Alum Hydrox/Mag Hydrox/Simeth 30 ML, Lidocaine 2% 15 ML PO ONE ×2 (00:54)
[2020-01-31] MEDS ORDERED: Famotidine 20 MG/2 ML SDV IVPUSH ONE (00:54)
[2020-01-31] MEDS ORDERED: LORazepam 2 MG/ML SDV IVPUSH ONE ×2 (00:55→02:17)
--- NOTE | 2020-01-31 02:03 | EDM.PDOC ---
ED HPI GENERAL MEDICAL PROBLEM - General Chief Complaint: Gastrointestinal Problem Stated Complaint: ACID REFLUX Time Seen by Provider: 01/31/20 00:32 Source of Information: Reports: Patient History Limitations: Reports: No Limitations - History of Present Illness INITIAL COMMENTS - FREE TEXT/NARRATIVE: The patient presents with heart burn. She said this started tonight before arrival. She has a burning sensation in her chest with radiation to her back. She tried a few things to get rid of it like antacids, pepto bismal, and milk. Nothing helped. She has no shortness of breath with it. She has no fever, chills, cough, congestion, runny nose abdominal pain, nausea or vomiting. She had no heart problems but her mother does. Onset: Gradual Duration: Hour(s): Location: Reports: Chest Quality: Reports: Burning Severity: Moderate Improves with: Reports: None Worsens with: Reports: None Associated Symptoms: Reports: Chest Pain. Denies: Cough, Fever/Chills, Headache s, Nausea/Vomiting, Shortness of Breath - Related Data Allergies Allergy/AdvReac Type Severity Reaction Status Date / Time hydromorphone [From Dilaudid] AdvReac Mild Change Verified 01/08/20 17:21 Mental Status morphine AdvReac Mild Headache Verified 01/08/20 17:21 Home Meds: Home Meds Mometasone/Formoterol [Dulera 200 Mcg-5 Mcg Inhaler] 2 puff INH BID 07/27/19 [History] Melatonin 20 mg PO BEDTIME PRN 11/01/19 [History] Cholecalciferol (Vitamin D3) [Vitamin D3] 5,000 unit PO DAILY #30 tablet 11/05/19 [Rx] Albuterol Sulfate [Albuterol Sulfate Hfa] 1 puff PO ASDIRECTED 12/03/19 [History] Calcium Carbonate [Calcium] 0 mg PO DAILY 01/08/20 [History] Ferrous Sulfate [Iron] 0 mg PO DAILY 01/08/20 [History] Fish Oil/[place]-3 Fatty Acids [Fish Oil 1,000 MG] 1 each PO DAILY 01/08/20 [History] hydrOXYzine pamoate [Hydroxyzine Pamoate] 50 mg PO TID 01/08/20 [History] Lidocaine 2% [Xylocaine 2% Viscous] 10 ml PO TID #100 ml 11/26/20 [Rx] Past Medical History - Past Health History Medical/Surgical History: Denies Medical/Surgical History HEENT History: Reports: Impaired Vision Other HEENT History: ringing of ears Cardiovascular History: Reports: Other (See Below) Other Cardiovascular History: chest pains with anxiety attacks Respiratory History: Reports: Asthma Other Respiratory History: COVID Gastrointestinal History: Reports: Helicobacter Pylori 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: ovarian cyst, hydrosalpinx, menorrhagia, pelvic pain and pressure Musculoskeletal History: Reports: Back Pain, Chronic, Neck Pain, Chronic Psychiatric History: Reports: Addiction, Anxiety, Panic Attack Other Psychiatric History: patient has hx of alcohol abuse Endocrine/Metabolic History: Reports: Obesity/BMI 30+ - Infectious Disease History Infectious Disease History: Reports: Novel Coronavirus - Past Surgical History HEENT Surgical History: Reports: Other (See Below) GI Surgical History: Reports: Cholecystectomy Female Surgical History: Reports: D&C, Tubal Ligation Other Female Surgeries/Procedures: tubes removed Social & Family History - Family History Family Medical History: No Pertinent Family History - Tobacco Use Tobacco Use Status *Q: Former Tobacco User Used Tobacco, but Quit: Yes Month/Year Tobacco Last Used: 06/21 - Caffeine Use Caffeine Use: Reports: Coffee, Tea - Recreational Drug Use Recreational Drug Use: No - Living Situation & Occupation Living situation: Reports: Single, with Significant Other (Boyfriend), with Family (2 kids) Occupation: Unemployed ED ROS GENERAL - Review of Systems Review Of Systems: See Below Constitutional: Reports: No Symptoms HEENT: Reports: No Symptoms Respiratory: Reports: No Symptoms Cardiovascular: Reports: Chest Pain Endocrine: Reports: No Symptoms GI/Abdominal: Reports: No Symptoms : Reports: No Symptoms Musculoskeletal: Reports: No Symptoms ED EXAM, GI/ABD - Physical Exam Exam: See Below Exam Limited By: No Limitations General Appearance: Alert, No Apparent Distress Ears: Normal External Exam Nose: Normal Inspection Head: Atraumatic, Normocephalic Neck: Normal Inspection Respiratory/Chest: No Respiratory Distress, Lungs Clear, Normal Breath Sounds Cardiovascular: Regular Rate, Rhythm, No Edema, No Murmur GI/Abdominal Exam: Soft, Non-Tender, No Organomegaly, No Mass Back Exam: Normal Inspection #1 Interpretation EKG Date: 01/31/20 Time: 01:14 Rhythm: NSR Rate (Beats/Min): 77 [place]: Normal P-Wave: Present QRS: Normal ST-T: Normal QT: Normal Course - Vital Signs Last Recorded V/S: Last Vital Signs Temp 96.7 F L 01/31/20 00:32 Pulse 87 01/31/20 00:32 Resp 20 01/31/20 00:32 BP 142/94 H 01/31/20 00:32 Pulse Ox 100 01/31/20 00:32 - Orders/Labs/Meds Orders: Active Orders 24 hr Category Date Time Status Cardiac Monitoring [RC] . DIRECTED Care 01/31/20 00:53 Active EKG Documentation Completion [RC] STAT Care 01/31/20 00:54 Active Peripheral IV Care [RC] . DIRECTED Care 01/31/20 00:54 Active Chest 1V Frontal [CR] Stat Exams 01/31/20 00:54 Taken Sodium Chloride 0.9% [Saline Flush] Med 01/31/20 00:53 Active 10 ml FLUSH ASDIRECTED PRN Peripheral IV Insertion Adult [OM.PC] Stat Oth 01/31/20 00:53 Ordered Medication Orders Sodium Chloride (Saline Flush) 10 ml FLUSH ASDIRECTED PRN PRN Reason: Keep Vein Open Last Admin: 01/31/20 01:31 Dose: 10 ml Documented by: YOUNG Labs: Laboratory Tests 01/31/20 01/31/20 Range/Units 01:22 01:22 WBC 8.36 (3.98-10.04) K/mm3 RBC 3.97 L (3.98-5.22) M/mm3 Hgb 12.3 (11.2-15.7) gm/dl Hct 36.6 (34.1-44.9) % MCV 92.2 (79.4-94.8) fl MCH 31.0 (25.6-32.2) pg MCHC 33.6 (32.2-35.5) g/dl RDW Std Deviation 48.0 H (36.4-46.3) fL Plt Count 314 (182-369) K/mm3 MPV 9.0 L (9.4-12.3) fl Neut % (Auto) 66.7 (34.0-71.1) % Lymph % (Auto) 24.2 (19.3-51.7) % [place] % (Auto) 6.9 (4.7-12.5) % Eos % (Auto) 1.7 (0.7-5.8) Baso % (Auto) 0.5 (0.1-1.2) % Neut # (Auto) 5.58 (1.56-6.13) K/mm3 Lymph # (Auto) 2.02 (1.18-3.74) K/mm3 [place] # (Auto) 0.58 H (0.24-0.36) K/mm3 Eos # (Auto) 0.14 (0.04-0.36) K/mm3 Baso # (Auto) 0.04 (0.01-0.08) K/mm3 Sodium 139 (136-145) mEq/L Potassium 3.5 (3.5-5.1) mEq/L Chloride 104 (98-107) mEq/L Carbon Dioxide 22 (21-32) mEq/L Anion Gap 16.5 H (5-15) BUN 9 (7-18) mg/dL Creatinine 0.9 (0.55-1.02) mg/dL Est Cr Clr Drug Dosing 81.61 mL/min Estimated GFR (MDRD) > 60 (>60) mL/min BUN/Creatinine Ratio 10.0 L (14-18) Glucose 109 H (74-106) mg/dL Calcium 8.8 (8.5-10.1) mg/dL Total Bilirubin 0.6 (0.2-1.0) mg/dL AST 25 (15-37) U/L ALT 46 (14-59) U/L Alkaline Phosphatase 77 (46-116) U/L Troponin I < 0.017 (0.00-0.056) ng/mL Total Protein 7.8 (6.4-8.2) g/dl Albumin 3.8 (3.4-5.0) g/dl Globulin 4.0 gm/dL Albumin/Globulin Ratio 1.0 (1-2) Meds: Medications Generic Name Dose Route Start Last Admin Trade Name Freq PRN Reason Stop Dose Admin Sodium Chloride 10 ml 01/31/20 00:53 01/31/20 01:31 Saline Flush FLUSH 10 ml ASDIRECTED PRN Administration Keep Vein Open Discontinued Medications Generic Name Dose Route Start Last Admin Trade Name Freq PRN Reason Stop Dose Admin Al Hydroxide/Mg Hydroxide 30 0 ml 01/31/20 00:54 01/31/20 01:25 ml/ Lidocaine HCl 15 ml PO 01/31/20 00:55 45 ml ONETIME ONE Administration Famotidine 20 mg 01/31/20 00:54 01/31/20 01:28 Pepcid IVPUSH 01/31/20 00:55 20 mg ONETIME ONE Administration Lorazepam 1 mg 01/31/20 00:55 01/31/20 01:29 Ativan IVPUSH 01/31/20 00:56 1 mg ONETIME ONE Administration Ondansetron HCl 4 mg 01/31/20 00:54 01/31/20 01:26 Zofran IVPUSH 01/31/20 00:55 4 mg ONETIME ONE Administration - Re-Assessments/Exams Free Text/Narrative Re-Assessment/Exam: 01/31/20 02:01 I ordered an IV saline lock, pepcid 20mg IV, ativan 1mg IV, GI cocktail, EKG, CXR and labs. Her EKG shows a NSR with no acute changes. Her CXR looks good. Her CBC and CMP look good. Her troponin is negative. Departure - Departure Time of Disposition: 02:10 Disposition: Home, Self-Care 01 Condition: Good Clinical Impression: GERD (gastroesophageal reflux disease) Qualifiers: Esophagitis presence: without esophagitis Qualified Code(s): K21.9 - Gastro- esophageal reflux disease without esophagitis - Discharge Information *PRESCRIPTION DRUG MONITORING PROGRAM REVIEWED*: Not Applicable *COPY OF PRESCRIPTION DRUG MONITORING REPORT IN PATIENT ISAC: Not Applicable Prescriptions: Lidocaine 2% [Xylocaine 2% Viscous] 10 ml PO TID #100 ml Referrals: Maylin Lauren MD [Primary Care Provider] - 1 Week Forms: ED Department Discharge Additional Instructions: Take pepcid daily for 2 weeks. If you have more pain mix the viscous lidocaine 10mls with 15mls of maalox. You can do that 3 times per day. Please return if you are worse. Sepsis Event Note (ED) - Evaluation Sepsis Screening Result: No Definite Risk - Focused Exam Vital Signs: Vital Signs Temp Pulse Resp BP Pulse Ox 01/31/20 00:32 96.7 F L 87 20 142/94 H 100 - My Orders Last 24 Hours: My Active Orders 01/31/20 00:53 Cardiac Monitoring [RC] . DIRECTED Sodium Chloride 0.9% [Saline Flush] 10 ml FLUSH ASDIRECTED PRN Peripheral IV Insertion Adult [OM.PC] Stat 01/31/20 00:54 EKG Documentation Completion [RC] STAT Peripheral IV Care [RC] . DIRECTED Chest 1V Frontal [CR] Stat - Assessment/Plan Last 24 Hours: My Active Orders 01/31/20 00:53 Cardiac Monitoring [RC] . DIRECTED Sodium Chloride 0.9% [Saline Flush] 10 ml FLUSH ASDIRECTED PRN Peripheral IV Insertion Adult [OM.PC] Stat 01/31/20 00:54 EKG Documentation Completion [RC] STAT Peripheral IV Care [RC] . DIRECTED Chest 1V Frontal [CR] Stat
--- NOTE | 2020-02-04 09:13 | CR ---
PROCEDURE INFORMATION: Exam: XR Chest, 1 View Exam date and time: 01/31/2020 1:29 AM Age: 40 years old Clinical indication: Type not specified; Patient HX: PT having chest pain onset few hours prior; Additional info: Prior reports scanned for your review TECHNIQUE: Imaging protocol: XR of the chest Views: 1 view. COMPARISON: CR Chest 1V Frontal 12/07/2019 7:18 AM FINDINGS: Lungs: Unremarkable. No consolidation. Pleural space: Unremarkable. No pleural effusion. No pneumothorax. Heart/Mediastinum: Unremarkable. No cardiomegaly. Bones/joints: Unremarkable. IMPRESSION: No acute findings. Thank you for allowing us to participate in the care of your patient. Dictated and Authenticated by: Sukhi Stanton MD 01/31/2020 2:58 AM Central Time ([place] & [place]) FANNY
== END 2020-01-31 02:33 | disposition home or self-care (01) ==
LOC: JD.ED 00:23
DX: K21.9 Gastro-esophageal reflux disease without esophagitis (principal); J45.909 Unspecified asthma, uncomplicated; F41.9 Anxiety disorder, unspecified; E66.9 Obesity, unspecified; Z87.891 Personal history of nicotine dependence; Z68.42 Body mass index [BMI] 45.0-49.9, adult; Z88.5 Allergy status to narcotic agent
CPT/HCPCS: 36415; 71045; 80053; 84484; 85025; 93005; 96374; 96375; 96376; 99284; A9270; J2060; J2405; J3490

== ENCOUNTER 2020-02-21 21:43 | Emergency (ER) | payer MEDICAID ==
[2020-02-21 21:53] VITALS: BP 133/90; PULSE 83
[2020-02-21] MEDS ORDERED: Alum Hydrox/Mag Hydrox/Simeth 30 ML, Lidocaine 2% 15 ML PO STA ×2 (22:01)
[2020-02-21] MEDS ORDERED: Famotidine 20 MG Tab PO STA (22:02)
[2020-02-21] MEDS ORDERED: Ondansetron 4 MG Tab.DIS PO ONE (22:12)
[2020-02-21] MEDS ORDERED: LORazepam 1 MG Tab PO ONE (22:12)
--- NOTE | 2020-02-21 22:19 | EDM.PDOC ---
ED HPI GENERAL MEDICAL PROBLEM - General Chief Complaint: Chest Pain Stated Complaint: BURNING IN CHEST AREA Time Seen by Provider: 02/21/20 21:54 Source of Information: Reports: Patient History Limitations: Reports: No Limitations - History of Present Illness INITIAL COMMENTS - FREE TEXT/NARRATIVE: Ms. Sheets is a very pleasant 40-year-old woman with a past medical history signi ficant for untreated GERD, who now presents the ED with a complaint of GERD symptoms, including a burning sensation going up her throat with an acid taste in her mouth, and nausea, that began around 20:30 to 21:00 tonight. She states that she took Tums, Pepto-Bismol, without relief, followed by Kaopectate, also without relief. She has had these same symptoms numerous times in the past, and that GI cocktails have worked well for her in the past. She states that her GERD symptoms are increasing her anxiety, and she would like some Ativan. Here in the ED, the patient is found to be hemodynamically stable, afebrile, saturating 98% on room air. Other than her GERD symptoms tonight, the patient denies having a recent fever, chills, sore throat, ear pain, nasal or sinus congestion, cough, dyspnea, chest pain, palpitations, nausea, vomiting, constipation, diarrhea, abdominal pain, urinary symptoms, recent weight gain or weight loss, recent bloody bowel movements or black bowel movements, recent joint aches, headaches, or rashes. The patient's PCP is Dr. Maylin Lauren. 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 She already received an Valenza vaccine this season. Upper Chest Pain Score (Numeric/FACES): 7 - Related Data Allergies Allergy/AdvReac Type Severity Reaction Status Date / Time hydromorphone [From Dilaudid] AdvReac Mild Change Verified 01/08/20 17:21 Mental Status morphine AdvReac Mild Headache Verified 01/08/20 17:21 Home Meds: Home Meds Mometasone/Formoterol [Dulera 200 Mcg-5 Mcg Inhaler] 2 puff INH BID 07/27/19 [History] Melatonin 20 mg PO BEDTIME PRN 11/01/19 [History] Cholecalciferol (Vitamin D3) [Vitamin D3] 5,000 unit PO DAILY #30 tablet 11/05/19 [Rx] Albuterol Sulfate [Albuterol Sulfate Hfa] 1 puff PO ASDIRECTED 12/03/19 [History] Calcium Carbonate [Calcium] 0 mg PO DAILY 01/08/20 [History] Ferrous Sulfate [Iron] 0 mg PO DAILY 01/08/20 [History] Fish Oil/[place]-3 Fatty Acids [Fish Oil 1,000 MG] 1 each PO DAILY 01/08/20 [History] hydrOXYzine pamoate [Hydroxyzine Pamoate] 50 mg PO TID 01/08/20 [History] Lidocaine 2% [Xylocaine 2% Viscous] 10 ml PO TID #100 ml 01/31/20 [Rx] Ondansetron [Zofran ODT] 1 tab PO Q8H PRN #10 tab.dis 02/21/20 [Rx] Past Medical History HEENT History: Reports: Impaired Vision Respiratory History: Reports: Asthma (suspected, not tested) Gastrointestinal History: Reports: GERD 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) (ovarian 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) Psychiatric History: Reports: Addiction (alcohol), Anxiety, Panic Attack Endocrine/Metabolic History: Reports: Obesity/BMI 30+, Other (See Below) (Prediabetes) - Infectious Disease History Infectious Disease History: Reports: Novel Coronavirus (dx'd 10/25/2019) - Past Surgical History HEENT Surgical History: Reports: Other (See Below) (Right facial cyst excised as a child) GI Surgical History: Reports: Cholecystectomy (around 2014) Female Surgical History: Reports: D&C (x 1), Tubal Ligation Social & Family History - Tobacco Use Tobacco Use Status *Q: Current Every Day Tobacco User Tobacco Use Within Last Twelve Months: Vaping (stopped vaping nicotine Oct 2019) Years of Tobacco use: 16 Packs/Tins Daily: 0.1 Packs/Tins Daily Comment: Down from 03/08 ppd - Caffeine Use Caffeine Use: Reports: Coffee, Tea - Alcohol Use Alcohol Use History: Yes Date/Time of Last Drink Comment: States 1 glass of wine with dinner Alcohol Use Frequency: Daily - Recreational Drug Use Recreational Drug Use: No - Living Situation & Occupation Living situation: Reports: Single, with Significant Other (Boyfriend), with Family (2 kids) Occupation: Unemployed ED ROS GENERAL - Review of Systems Review Of Systems: Comprehensive ROS is negative, except as noted in HPI. ED EXAM, GI/ABD - Physical Exam Exam: See Below Exam Limited By: No Limitations General Appearance: Alert, WD/WN, No Apparent Distress Eyes: Bilateral: Normal Appearance, EOMI Ears: Normal External Exam, Hearing Grossly Normal Nose: Normal Inspection Throat/Mouth: Normal Inspection, Normal Lips, Normal Voice, No Airway Compromise Head: Atraumatic, Normocephalic Neck: Normal Inspection, Full Range of Motion Respiratory/Chest: No Respiratory Distress, Lungs Clear, Normal Breath Sounds, No Accessory Muscle Use Cardiovascular: Normal Peripheral Pulses, Regular Rate, Rhythm, No Gallop, No JVD, No Murmur, No Rub GI/Abdominal Exam: Normal Bowel Sounds, Soft, Non-Tender, No Organomegaly, No Distention, No Abnormal Bruit, No Mass Back Exam: Normal Inspection, Full Range of Motion, NT Extremities: Normal Inspection, Normal Range of Motion, Normal Capillary Refill Neurological: Alert, Oriented, Normal Cognition, No Motor/Sensory Deficits Psychiatric: Normal Affect Skin Exam: Warm, Dry, Intact, Normal Color, No Rash Course - Vital Signs Last Recorded V/S: Last Vital Signs Temp 37.1 C 02/21/20 21:51 Pulse 83 02/21/20 21:51 Resp 18 02/21/20 21:51 BP 133/90 02/21/20 21:51 Pulse Ox 98 02/21/20 21:51 - Orders/Labs/Meds Meds: Medications Discontinued Medications Generic Name Dose Route Start Last Admin Trade Name Freq PRN Reason Stop Dose Admin Al Hydroxide/Mg Hydroxide 30 0 ml 02/21/20 22:01 ml/ Lidocaine HCl 15 ml PO 02/21/20 22:02 ONETIME STA Famotidine 40 mg 02/21/20 22:02 Pepcid PO 02/21/20 22:03 ONETIME STA Lorazepam 1 mg 02/21/20 22:12 Ativan PO 02/21/20 22:13 ONETIME ONE Ondansetron HCl 4 mg 02/21/20 22:12 Zofran Odt PO 02/21/20 22:13 ONETIME ONE - Re-Assessments/Exams Free Text/Narrative Re-Assessment/Exam: 02/21/20 22:13 The patient will be given a GI cocktail, followed by 40 mg of oral famotidine, 4 mg of Zofran ODT, and 1 mg of oral lorazepam. I will submit a prescription for Zofran, but not lorazepam. Going forward, I am recommending that she begin taking [id number] famotidine, 1 tablet twice a day. If that fails to suppress her GERD symptoms, she needs to discuss that with her PCP when she is seen on 02/27/2020. An EGD may be indicated. Departure - Departure Time of Disposition: 22:14 Disposition: Home, Self-Care 01 Condition: Good Clinical Impression: GERD (gastroesophageal reflux disease) - Discharge Information *PRESCRIPTION DRUG MONITORING PROGRAM REVIEWED*: Not Applicable *COPY OF PRESCRIPTION DRUG MONITORING REPORT IN PATIENT ISAC: Not Applicable Referrals: Maylin Laurne MD [Primary Care Provider] - Additional Instructions: You were seen in the emergency room for recurrent symptoms of acid reflux, including a burning sensation going up your throat with an acid taste in your mouth. You were treated with a GI cocktail, followed by oral famotidine, oral Zofran, and oral lorazepam. A prescription for Zofran has been sent to the [facility] [employer]. You may dissolve 1 tablet of Zofran on your tongue up to every 8 hours, as needed for nausea/vomiting. Going forward, we recommend that you purchase and take [id number] famotidine, 1 tablet twice a day, on a regular basis. As discussed, it is very important that you stop drinking alcohol altogether, as alcohol dissolves your stomach protective lining, contributing to stomach inflammation. Follow-up with your PCP, Dr. Maylin Lauren, at your previously scheduled appointment on 02/27/2020. If you are still having acid reflux symptoms, talk to her about switching to a proton pump inhibitor and getting an EGD (scope of your stomach). If any other problems, please do not hesitate to return to the ER. Sepsis Event Note (ED) - Evaluation Sepsis Screening Result: No Definite Risk - Focused Exam Vital Signs: Vital Signs Temp Pulse Resp BP Pulse Ox 02/21/20 21:51 37.1 C 83 18 133/90 98
== END 2020-02-21 22:28 | disposition home or self-care (01) ==
LOC: JD.ED 21:43
DX: K21.9 Gastro-esophageal reflux disease without esophagitis (principal); J45.909 Unspecified asthma, uncomplicated; E66.9 Obesity, unspecified; F41.9 Anxiety disorder, unspecified; F17.210 Nicotine dependence, cigarettes, uncomplicated; Z68.42 Body mass index [BMI] 45.0-49.9, adult; Z88.5 Allergy status to narcotic agent; Z79.899 Other long term (current) drug therapy
CPT/HCPCS: 99283; 99284; A9270-GY

== ENCOUNTER 2020-08-18 19:43 | Emergency (ER) | payer MEDICAID ==
[2020-08-18 20:13] VITALS: BP 132/77; PULSE 67
[2020-08-18] MEDS ORDERED: Ondansetron 4 MG Tab.DIS PO ONE (20:18)
[2020-08-18] MEDS ORDERED: LORazepam 1 MG Tab PO ONE (20:18)
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
== END 2020-08-18 21:55 | disposition home or self-care (01) ==
LOC: JD.ED 19:43
DX: F10.230 Alcohol dependence with withdrawal, uncomplicated (principal); E66.9 Obesity, unspecified; Z68.30 Body mass index [BMI] 30.0-30.9, adult; Z86.16 Personal history of COVID-19; Z88.6 Allergy status to analgesic agent; Z88.5 Allergy status to narcotic agent; Y90.5 Blood alcohol level of 100-119 mg/100 ml
CPT/HCPCS: 36415; 80053; 80306; 80307; 83735; 84703; 85025; 99284; A9270

== ENCOUNTER 2020-10-12 19:14 | Emergency (ER) | payer MEDICAID ==
[2020-10-12 19:50] VITALS: BP 135/82; PULSE 145
--- NOTE | 2020-10-12 19:54 | EDM.PDOC ---
ED HPI GENERAL MEDICAL PROBLEM - General Chief Complaint: Fever Stated Complaint: FEVER/HEADACHE/DIFFICULTY BREATHING/ Time Seen by Provider: 10/12/20 19:21 Source of Information: Reports: Patient History Limitations: Reports: No Limitations - History of Present Illness INITIAL COMMENTS - FREE TEXT/NARRATIVE: Patient is a 40-year-old female who has numerous complaints including anxiety and some abdominal pain that goes to her back bilaterally some difficulty urinating with mild dysuria. She is also feeling feverish and somewhat achy at times. Patient has had Covid previously and has had immunization with the [place] vaccine. Patient is feeling somewhat achy all over and has episodic chest pain. She has not been nauseous or vomiting denies any hematuria or bloody or tarry stools. Onset: Unknown/Unsure Location: Reports: Generalized Quality: Reports: Ache Associated Symptoms: Reports: Chest Pain, Fever/Chills, Malaise. Denies: Loss of Appetite, Nausea/Vomiting, Shortness of Breath Headache Pain Score (Numeric/FACES): 10 Lower Abdomen Pain Score (Numeric/FACES): 7 - Related Data Allergies Allergy/AdvReac Type Severity Reaction Status Date / Time hydromorphone [From Dilaudid] AdvReac Severe Change Verified 10/12/20 19:46 Mental Status morphine AdvReac Severe Headache Verified 10/12/20 19:46 Home Meds: Home Meds Mometasone/Formoterol [Dulera 200 Mcg-5 Mcg Inhaler] 2 puff INH BID 07/27/19 [History] Melatonin 20 mg PO BEDTIME PRN 11/01/19 [History] Cholecalciferol (Vitamin D3) [Vitamin D3] 5,000 unit PO DAILY #30 tablet 11/05/19 [Rx] Albuterol Sulfate [Albuterol Sulfate Hfa] 1 puff PO ASDIRECTED 12/03/19 [History] Calcium Carbonate [Calcium] 0 mg PO DAILY 01/08/20 [History] Ferrous Sulfate [Iron] 0 mg PO DAILY 01/08/20 [History] Fish Oil/[place]-3 Fatty Acids [Fish Oil 1,000 MG] 1 each PO DAILY 01/08/20 [History] hydrOXYzine pamoate [Hydroxyzine Pamoate] 50 mg PO TID 01/08/20 [History] LORazepam [Ativan] 1 mg PO DAILY #18 tablet 08/18/20 [Rx] LORazepam [Ativan] 1 mg PO DAILY #18 tablet 08/18/20 [Rx] Lidocaine 2% [Xylocaine 2% Viscous] 10 ml PO TID PRN 08/18/20 [History] Ondansetron [Zofran ODT] 4 mg PO Q6H PRN #20 tab.dis 08/18/20 [Rx] Ondansetron [Zofran ODT] 4 mg PO Q6H PRN #20 tab.dis 08/18/20 [Rx] Phenazopyridine HCl [Pyridium] 100 mg PO TID PRN #10 tablet 10/12/20 [Rx] Sulfamethoxazole/Trimethoprim [Bactrim Ds Tablet] 1 each PO BID #14 tablet 10/12/20 [Rx] Past Medical History HEENT History: Reports: Impaired Vision Other HEENT History: ringing of ears Cardiovascular History: Reports: Other (See Below) Other Cardiovascular History: chest pains with anxiety attacks Respiratory History: Reports: Asthma Other Respiratory History: COVID Gastrointestinal History: Reports: GERD MANAGER QUALITY History: Reports: Other (See Below) Other MANAGER QUALITY History: ovarian cyst, hydrosalpinx, menorrhagia, pelvic pain and pressure Musculoskeletal History: Reports: Back Pain, Chronic, Neck Pain, Chronic Psychiatric History: Reports: Addiction, Anxiety, Panic Attack Other Psychiatric History: patient has hx of alcohol abuse Endocrine/Metabolic History: Reports: Obesity/BMI 30+ - Infectious Disease History Infectious Disease History: Reports: Novel Coronavirus - Past Surgical History HEENT Surgical History: Reports: Other (See Below) GI Surgical History: Reports: Cholecystectomy Female Surgical History: Reports: D&C, Tubal Ligation Other Female Surgeries/Procedures: tubes removed Social & Family History - Family History Family Medical History: No Pertinent Family History - Tobacco Use Tobacco Use Status *Q: Former Tobacco User Used Tobacco, but Quit: Yes Month/Year Tobacco Last Used: 2017 - Caffeine Use Caffeine Use: Reports: Coffee, Tea - Recreational Drug Use Recreational Drug Use: No - Living Situation & Occupation Living situation: Reports: Single, with Significant Other (Boyfriend), with Family (2 kids) Occupation: Unemployed ED ROS GENERAL - Review of Systems Review Of Systems: Comprehensive ROS is negative, except as noted in HPI. ED EXAM, GENERAL - Physical Exam Exam: See Below Exam Limited By: No Limitations General Appearance: Alert, Anxious Head: Normocephalic Neck: Normal Inspection, Supple, Non-Tender Respiratory/Chest: No Respiratory Distress, Lungs Clear, Normal Breath Sounds Cardiovascular: Regular Rate, Rhythm, No Edema, No JVD GI/Abdominal: Normal Bowel Sounds, Soft, Non-Tender, No Distention Back Exam: Full Range of Motion. No: CVA Tenderness (L), CVA Tenderness (R) Extremities: Normal Inspection, No Pedal Edema Neurological: Alert, Oriented, Normal Cognition Psychiatric: Anxious Skin Exam: Warm, Dry, Normal Color Lymphatic: No Adenopathy Course - Vital Signs Text/Narrative:: Patient's lab work are all within normal limits except for her urine which does show a UTI. I am starting her on Bactrim and Pyridium. Patient's heart rate has slowed down to the 80s and she is feeling much better. I am encouraging her to keep drinking more fluids to keep her urine light yellow to clear in color. She may take Tylenol and ibuprofen as needed. She should return to ER if worse and follow-up with her PCP over the next week for recheck. Last Recorded V/S: Last Vital Signs Temp 101.9 F H 10/12/20 19:49 Pulse 145 H 10/12/20 19:49 Resp 20 10/12/20 19:49 BP 135/82 10/12/20 19:49 Pulse Ox 98 10/12/20 19:49 - Orders/Labs/Meds Orders: Active Orders 24 hr Category Date Time Status Orthostatic Vital Signs [RC] ASDIRECTED Care 10/12/20 20:30 Active Orthostatic Vital Signs [RC] ASDIRECTED Care 10/12/20 21:13 Active Labs: Laboratory Tests 10/12/20 10/12/20 10/12/20 Range/Units 20:16 20:16 20:16 WBC 7.55 (3.98-10.04) K/mm3 RBC 3.90 L (3.98-5.22) M/mm3 Hgb 11.1 L (11.2-15.7) gm/dl Hct 34.4 (34.1-44.9) % MCV 88.2 (79.4-94.8) fl MCH 28.5 (25.6-32.2) pg MCHC 32.3 (32.2-35.5) g/dl RDW Std Deviation 49.3 H (36.4-46.3) fL Plt Count 190 D (182-369) K/mm3 MPV 9.5 (9.4-12.3) fl Neutrophils % (Manual) 85 H (40-60) % Band Neutrophils % 4 (0-10) % Lymphocytes % (Manual) 8 L (20-40) % Atypical Lymphs % 0 % Monocytes % (Manual) 3 (2-10) % Eosinophils % (Manual) 0 L (0.7-5.8) % Basophils % (Manual) 0 L (0.1-1.2) Platelet Estimate Adequate RBC Morph Comment Normal Sodium 138 (136-145) mEq/L Potassium 3.2 L (3.5-5.1) mEq/L Chloride 104 (98-107) mEq/L Carbon Dioxide 21 (21-32) mEq/L Anion Gap 16.2 H (5-15) BUN 10 (7-18) mg/dL Creatinine 1.1 H (0.55-1.02) mg/dL Est Cr Clr Drug Dosing 66.77 mL/min Estimated GFR (MDRD) 55 (>60) mL/min BUN/Creatinine Ratio 9.1 L (14-18) Glucose 172 H (70-99) mg/dL Lactic Acid 1.5 (0.4-2.0) mmol/L Calcium 8.4 L (8.5-10.1) mg/dL Total Bilirubin 0.5 (0.2-1.0) mg/dL AST 18 (15-37) U/L ALT 27 (14-59) U/L Alkaline Phosphatase 136 H (46-116) U/L Total Protein 7.0 (6.4-8.2) g/dl Albumin 2.9 L (3.4-5.0) g/dl Globulin 4.1 gm/dL Albumin/Globulin Ratio 0.7 L (1-2) Urine Color (Yellow) Urine Appearance (Clear) Urine pH (5.0-8.0) Ur Specific [place] (1.005-1.030) Urine Protein (Negative) Urine Glucose (UA) (Negative) Urine Ketones (Negative) Urine Occult Blood (Negative) Urine Nitrite (Negative) Urine Bilirubin (Negative) Urine Urobilinogen (0.2-1.0) Ur Leukocyte Esterase (Negative) 08/08/21 Range/Units 22:30 WBC (3.98-10.04) K/mm3 RBC (3.98-5.22) M/mm3 Hgb (11.2-15.7) gm/dl Hct (34.1-44.9) % MCV (79.4-94.8) fl MCH (25.6-32.2) pg MCHC (32.2-35.5) g/dl RDW Std Deviation (36.4-46.3) fL Plt Count (182-369) K/mm3 MPV (9.4-12.3) fl Neutrophils % (Manual) (40-60) % Band Neutrophils % (0-10) % Lymphocytes % (Manual) (20-40) % Atypical Lymphs % % Monocytes % (Manual) (2-10) % Eosinophils % (Manual) (0.7-5.8) % Basophils % (Manual) (0.1-1.2) Platelet Estimate RBC Morph Comment Sodium (136-145) mEq/L Potassium (3.5-5.1) mEq/L Chloride (98-107) mEq/L Carbon Dioxide (21-32) mEq/L Anion Gap (5-15) BUN (7-18) mg/dL Creatinine (0.55-1.02) mg/dL Est Cr Clr Drug Dosing mL/min Estimated GFR (MDRD) (>60) mL/min BUN/Creatinine Ratio (14-18) Glucose (70-99) mg/dL Lactic Acid (0.4-2.0) mmol/L Calcium (8.5-10.1) mg/dL Total Bilirubin (0.2-1.0) mg/dL AST (15-37) U/L ALT (14-59) U/L Alkaline Phosphatase (46-116) U/L Total Protein (6.4-8.2) g/dl Albumin (3.4-5.0) g/dl Globulin gm/dL Albumin/Globulin Ratio (1-2) Urine Color Miriam H (Yellow) Urine Appearance Cloudy H (Clear) Urine pH 6.0 (5.0-8.0) Ur Specific [place] 1.025 (1.005-1.030) Urine Protein 2+ H (Negative) Urine Glucose (UA) Negative (Negative) Urine Ketones Trace H (Negative) Urine Occult Blood 2+ H (Negative) Urine Nitrite Positive H (Negative) Urine Bilirubin 1+ H (Negative) Urine Urobilinogen 1.0 (0.2-1.0) Ur Leukocyte Esterase 1+ H (Negative) Meds: Medications Discontinued Medications Generic Name Dose Route Start Last Admin Trade Name José Miguel PRN Reason Stop Dose Admin Ibuprofen 600 mg 10/12/20 20:03 10/12/20 20:16 Ibuprofen 600 Mg Tab PO 10/12/20 20:04 600 mg ONETIME ONE Administration Departure - Departure Time of Disposition: 22:57 Disposition: Home, Self-Care 01 Condition: Good Clinical Impression: Dehydration, UTI, Urinary tract infectious disease, Panic disorder - Discharge Information Instructions: Dehydration, Adult, [id number], Urinary Tract Infection, Adult, [id number] Referrals: Maylin Lauren MD [Primary Care Provider] - Forms: ED Department Discharge Additional Instructions: Increase fluids. Tylenol and/or ibuprofen with meals. Meds as prescribed. Return to ER if worse. Follow-up with PCP in 1 week for recheck sooner if not improving. Sepsis Event Note (ED) - Evaluation Sepsis Screening Result: No Definite Risk - Focused Exam Vital Signs: Vital Signs Temp Pulse Resp BP Pulse Ox 10/12/20 19:49 101.9 F H 145 H 20 135/82 98 - My Orders Last 24 Hours: My Active Orders 10/12/20 20:30 Orthostatic Vital Signs [RC] ASDIRECTED 10/12/20 21:13 Orthostatic Vital Signs [RC] ASDIRECTED - Assessment/Plan Last 24 Hours: My Active Orders 10/12/20 20:30 Orthostatic Vital Signs [RC] ASDIRECTED 10/12/20 21:13 Orthostatic Vital Signs [RC] ASDIRECTED
[2020-10-12] MEDS ORDERED: Ibuprofen 600 MG Tab PO ONE (20:03)
[2020-10-12] MEDS ORDERED: Sulfamethoxazole/Trimethoprim 800-160 MG Tab PO ONE (22:53)
[2020-10-12] MEDS ORDERED: Phenazopyridine 95 MG Tab ONE (23:07)
[2020-10-13] MEDS ORDERED: Phenazopyridine 95 MG Tab PO SCH (09:00)
== END 2020-10-13 00:25 | disposition home or self-care (01) ==
LOC: JD.ED 19:14
DX: E86.0 Dehydration (principal); N39.0 Urinary tract infection, site not specified; F41.0 Panic disorder [episodic paroxysmal anxiety]; J45.909 Unspecified asthma, uncomplicated; E66.9 Obesity, unspecified; Z68.43 Body mass index [BMI] 50.0-59.9, adult; Z87.891 Personal history of nicotine dependence; Z86.16 Personal history of COVID-19; Z88.5 Allergy status to narcotic agent
CPT/HCPCS: 36415; 80053; 81003; 83605; 85007; 85027; 99284; A9270; 99283

== ENCOUNTER 2020-11-29 19:59 | Emergency (ER) | payer MEDICAID ==
[2020-11-29 20:15] VITALS: BP 135/89; PULSE 88
[2020-11-29] MEDS ORDERED: LORazepam 1 MG Tab PO ONE (20:47)
[2020-11-29] MEDS ORDERED: Ondansetron 4 MG Tab.DIS PO ONE (20:47)
--- NOTE | 2020-11-29 21:06 | EDM.PDOC ---
<Jarrell Cardona - Last Filed: 11/30/20 03:55> ED HPI GENERAL MEDICAL PROBLEM - General Chief Complaint: Chest Pain Stated Complaint: CHEST PAIN Time Seen by Provider: 11/29/20 20:35 - Related Data Allergies Allergy/AdvReac Type Severity Reaction Status Date / Time hydromorphone [From Dilaudid] AdvReac Severe Change Verified 11/29/20 20:15 Mental Status morphine AdvReac Severe Headache Verified 11/29/20 20:15 Home Meds: Home Meds Mometasone/Formoterol [Dulera 200 Mcg-5 Mcg Inhaler] 2 puff INH BID 07/27/19 [History] Melatonin 20 mg PO BEDTIME PRN 11/01/19 [History] Cholecalciferol (Vitamin D3) [Vitamin D3] 5,000 unit PO DAILY #30 tablet 11/05/19 [Rx] Albuterol Sulfate [Albuterol Sulfate Hfa] 1 puff PO ASDIRECTED 12/03/19 [History] Calcium Carbonate [Calcium] 0 mg PO DAILY 01/08/20 [History] Ferrous Sulfate [Iron] 0 mg PO DAILY 01/08/20 [History] Fish Oil/[place]-3 Fatty Acids [Fish Oil 1,000 MG] 1 each PO DAILY 01/08/20 [History] hydrOXYzine pamoate [Hydroxyzine Pamoate] 50 mg PO TID 01/08/20 [History] #1 Interpretation EKG Date: 11/29/20 Time: 20:11 Rhythm: NSR Rate (Beats/Min): 75 [place]: Normal P-Wave: Present QRS: Normal ST-T: Normal QT: Normal Comparison: No Change (01/31/2020) Departure - Departure Disposition: Home, Self-Care 01 Clinical Impression: Anxiety - Discharge Information Instructions: Managing Anxiety, Adult Referrals: Maylin Lauren MD [Primary Care Provider] - Forms: ED Department Discharge Additional Instructions: You were seen in the emergency department today for evaluation of anxiety attack. While in the ER, you received Ativan and Zofran which did improve your symptoms significantly. Recommend that you go home and rest. Follow-up with your primary care provider as scheduled next week. Return to ER as needed. <Gogo Wharton - Last Filed: 11/30/20 23:19> ED HPI GENERAL MEDICAL PROBLEM - General Source of Information: Reports: Patient, RN Notes Reviewed History Limitations: Reports: No Limitations - History of Present Illness INITIAL COMMENTS - FREE TEXT/NARRATIVE: Patient is a 40-year-old female presenting to the emergency department with complaints of "anxiety attack ". She reports a long history of anxiety. This evening, she took CBD Gummies and melatonin in attempt to treat her anxiety, however she feels that it made her symptoms much worse. She complains of anxiety, numbness and tingling in her fingers and around her mouth, hyperventilation, and tightness in her chest. Reports that she has had symptoms similar to this in the past caused by her anxiety. She has hydroxyzine at home which was been prescribed, however she did not take this as she states it does not work. She has appointment scheduled on with her primary care provider to have referral to [facility] to see psychiatry. Bilateral Middle Chest Pain Score (Numeric/FACES): 4 Past Medical History HEENT History: Reports: Impaired Vision Other HEENT History: ringing of ears Cardiovascular History: Reports: Other (See Below) Other Cardiovascular History: chest pains with anxiety attacks Respiratory History: Reports: Asthma Other Respiratory History: COVID Gastrointestinal History: Reports: GERD PROFESSOR OF GENETICS History: Reports: Other (See Below) Other PROFESSOR OF GENETICS History: ovarian cyst, hydrosalpinx, menorrhagia, pelvic pain and pressure Musculoskeletal History: Reports: Back Pain, Chronic, Neck Pain, Chronic Psychiatric History: Reports: Addiction, Anxiety, Panic Attack Other Psychiatric History: patient has hx of alcohol abuse Endocrine/Metabolic History: Reports: Obesity/BMI 30+ - Infectious Disease History Infectious Disease History: Reports: Novel Coronavirus - Past Surgical History HEENT Surgical History: Reports: Other (See Below) GI Surgical History: Reports: Cholecystectomy Female Surgical History: Reports: D&C, Tubal Ligation Other Female Surgeries/Procedures: tubes removed Social & Family History - Family History Family Medical History: No Pertinent Family History - Tobacco Use Tobacco Use Status *Q: Never Tobacco User - Caffeine Use Caffeine Use: Reports: Coffee, Tea - Recreational Drug Use Recreational Drug Use: No - Living Situation & Occupation Living situation: Reports: Single, with Significant Other (Boyfriend), with Family (2 kids) Occupation: Unemployed ED ROS GENERAL - Review of Systems Review Of Systems: Comprehensive ROS is negative, except as noted in HPI. ED EXAM, GENERAL - Physical Exam Exam: See Below Exam Limited By: No Limitations General Appearance: Alert, WD/WN, No Apparent Distress Respiratory/Chest: No Respiratory Distress, Lungs Clear, Normal Breath Sounds, No Accessory Muscle Use, Other (bilateral anterior chest wall tenderness) Cardiovascular: Normal Peripheral Pulses, Regular Rate, Rhythm, No Edema, No G allop, No JVD, No Murmur, No Rub Neurological: Alert, Oriented, CN II-XII Intact, Normal Cognition, Normal Gait, Normal Reflexes, No Motor/Sensory Deficits Psychiatric: Normal Affect, Normal Mood Skin Exam: Warm, Dry, Intact, Normal Color, No Rash Course - Vital Signs Last Recorded V/S: Last Vital Signs Temp 97.4 F 11/29/20 20:08 Pulse 88 11/29/20 20:08 Resp 14 11/29/20 20:08 BP 135/89 11/29/20 20:08 Pulse Ox 97 11/29/20 20:08 - Orders/Labs/Meds Meds: Medications Discontinued Medications Generic Name Dose Route Start Last Admin Trade Name José Miguel PRScott Reason Stop Dose Admin Lorazepam 1 mg 11/29/20 20:47 11/29/20 20:55 Lorazepam 1 Mg Tab PO 11/29/20 20:48 1 mg ONETIME ONE Administration Ondansetron HCl 4 mg 11/29/20 20:47 11/29/20 20:54 Ondansetron 4 Mg Tab.Dis PO 11/29/20 20:48 4 mg ONETIME ONE Administration - Re-Assessments/Exams Free Text/Narrative Re-Assessment/Exam: 40-year-old female presenting to the emergency department for evaluation after experiencing panic attack. She reports anxiety, hyperventilation, numbness and tingling in her fingers and around her mouth, as well as chest tightness. She has long history of anxiety and has had similar symptoms to this in the past. I have ordered Ativan 1 mg p.o. and Zofran ODT 4 mg. 11/29/20 21:47 Patient is feeling much better after the medications given. We will discharge her home with recommendation that she keep her follow-up appointment with her primary care provider on . Discharge instructions as documented. Departure - Departure Time of Disposition: 21:48 Condition: Good - Discharge Information *PRESCRIPTION DRUG MONITORING PROGRAM REVIEWED*: No *COPY OF PRESCRIPTION DRUG MONITORING REPORT IN PATIENT ISAC: No
== END 2020-11-29 21:57 | disposition home or self-care (01) ==
LOC: JD.ED 19:59
DX: F41.9 Anxiety disorder, unspecified (principal); E66.9 Obesity, unspecified; J45.909 Unspecified asthma, uncomplicated; Z68.43 Body mass index [BMI] 50.0-59.9, adult; Z88.5 Allergy status to narcotic agent; Z86.16 Personal history of COVID-19
CPT/HCPCS: 93005; 99284; A9270

== ENCOUNTER 2021-01-04 06:55 | Emergency (ER) | payer MEDICAID ==
[2021-01-04 07:27] VITALS: BP 124/88; PULSE 80
[2021-01-04] MEDS ORDERED: LORazepam 1 MG Tab PO ONE (07:41)
[2021-01-04] MEDS ORDERED: Albuterol 0.083% 2.5 MG/3 ML Neb Soln NEB ONE (07:41)
[2021-01-04] MEDS ORDERED: Ondansetron 4 MG Tab.DIS ONE (07:50)
[2021-01-04] MEDS ORDERED: Ondansetron 4 MG Tab.DIS PO ONE (07:52)
--- NOTE | 2021-01-04 08:10 | EDM.PDOC ---
ED HPI GENERAL MEDICAL PROBLEM - General Chief Complaint: Respiratory Problem Stated Complaint: ASTHMA ATTACK/ANXIETY/CHEST PAIN Time Seen by Provider: 01/04/21 07:24 Source of Information: Reports: Patient, RN Notes Reviewed - History of Present Illness INITIAL COMMENTS - FREE TEXT/NARRATIVE: 40 yr old female comes in with sx of palpitations and short of breath. Started about 7 hrs ago. Chest still feels tight, still feels mildly short of breath. Has not bee recently ill. Chest Pain Score (Numeric/FACES): 6 - Related Data Allergies Allergy/AdvReac Type Severity Reaction Status Date / Time hydromorphone [From Dilaudid] AdvReac Intermediate Change Verified 01/04/21 07:27 Mental Status morphine AdvReac Mild Headache Verified 01/04/21 07:27 Home Meds: Home Meds Melatonin 20 mg PO BEDTIME PRN 11/01/19 [History] Albuterol Sulfate [Albuterol Sulfate Hfa] 1 puff PO ASDIRECTED 12/03/19 [History] hydrOXYzine pamoate [Hydroxyzine Pamoate] 50 mg PO TID 01/08/20 [History] Past Medical History HEENT History: Reports: Impaired Vision Other HEENT History: ringing of ears Cardiovascular History: Reports: Other (See Below) Other Cardiovascular History: chest pains with anxiety attacks Respiratory History: Reports: Asthma Other Respiratory History: COVID Gastrointestinal History: Reports: GERD RN PICU History: Reports: Other (See Below) Other RN PICU History: ovarian cyst, hydrosalpinx, menorrhagia, pelvic pain and pressure Musculoskeletal History: Reports: Back Pain, Chronic, Neck Pain, Chronic Psychiatric History: Reports: Addiction, Anxiety, Panic Attack Other Psychiatric History: patient has hx of alcohol abuse Endocrine/Metabolic History: Reports: Obesity/BMI 30+ - Infectious Disease History Infectious Disease History: Reports: Novel Coronavirus - Past Surgical History HEENT Surgical History: Reports: Other (See Below) GI Surgical History: Reports: Cholecystectomy Female Surgical History: Reports: D&C, Tubal Ligation Other Female Surgeries/Procedures: tubes removed Social & Family History - Family History Family Medical History: No Pertinent Family History - Caffeine Use Caffeine Use: Reports: Coffee, Tea - Living Situation & Occupation Living situation: Reports: Single, with Significant Other (Boyfriend), with Family (2 kids) Occupation: Unemployed ED ROS GENERAL - Review of Systems Review Of Systems: See Below Constitutional: Denies: Fever, Chills HEENT: Denies: Rhinitis, Sinus Problem, Throat Pain Respiratory: Reports: Shortness of Breath, Wheezing. Denies: Cough Cardiovascular: Reports: Chest Pain GI/Abdominal: Denies: Abdominal Pain, Nausea, Vomiting Musculoskeletal: Denies: Shoulder Pain, Arm Pain Skin: Reports: No Symptoms Neurological: Reports: No Symptoms ED EXAM, GENERAL - Physical Exam Exam: See Below General Appearance: Alert, Anxious (mild) Head: Atraumatic Neck: Supple Respiratory/Chest: No Respiratory Distress, Lungs Clear, Normal Breath Sounds. No: Rales, Rhonchi, Wheezing Cardiovascular: Regular Rate, Rhythm GI/Abdominal: Soft, Non-Tender Extremities: No: Leg Pain, Increased Warmth, Redness Neurological: Alert, Oriented, No Motor/Sensory Deficits Skin Exam: Warm, Dry, Normal Color Course - Vital Signs Last Recorded V/S: Last Vital Signs Temp 98.4 F 01/04/21 07:21 Pulse 80 01/04/21 07:21 Resp 18 01/04/21 07:21 BP 124/88 01/04/21 07:21 Pulse Ox 100 01/04/21 08:16 - Orders/Labs/Meds Meds: Medications Discontinued Medications Generic Name Dose Route Start Last Admin Trade Name José Miguel PRScott Reason Stop Dose Admin Albuterol 2.5 mg 01/04/21 07:41 01/04/21 08:16 Albuterol 0.083% 2.5 Mg/3 Ml Neb Soln NEB 01/04/21 07:42 2.5 mg ONETIME ONE Administration Lorazepam 1 mg 01/04/21 07:41 01/04/21 07:52 Lorazepam 1 Mg Tab PO 01/04/21 07:42 1 mg ONETIME ONE Administration Ondansetron HCl 4 mg 01/04/21 07:52 01/04/21 07:52 Ondansetron 4 Mg Tab.Dis PO 01/04/21 07:53 4 mg ONETIME ONE Administration Ondansetron HCl Confirm 01/04/21 07:50 Ondansetron 4 Mg Tab.Dis Administered 01/04/21 07:51 Dose 4 mg .ROUTE .STK-MED ONE - Re-Assessments/Exams Free Text/Narrative Re-Assessment/Exam: 01/04/21 13:24 have given a neb rx and ativan 1 mg PO. Departure - Departure Time of Disposition: 08:08 Disposition: Home, Self-Care 01 Condition: Fair Clinical Impression: Asthma Qualifiers: Asthma severity: mild Asthma persistence: unspecified Asthma complication type: unspecified Qualified Code(s): J45.909 - Unspecified asthma, uncomplicated - Discharge Information Instructions: Asthma, Adult, [id number] Referrals: PCP,Unknown [Primary Care Provider] - Forms: ED Department Discharge Additional Instructions: You have been given an albuteral neb and ativan while in the ED. Because you have been given sedating medication do not drive for the next 8 hours. Follow up clinic or return to ED as needed. Sepsis Event Note (ED) - Evaluation Sepsis Screening Result: No Definite Risk - Focused Exam Vital Signs: Vital Signs Temp Pulse Resp BP Pulse Ox Pulse Ox 01/04/21 08:16 100 01/04/21 07:21 98.4 F 80 18 124/88 100
== END 2021-01-04 08:23 | disposition home or self-care (01) ==
LOC: JD.ED 06:55
DX: J45.909 Unspecified asthma, uncomplicated (principal); K21.9 Gastro-esophageal reflux disease without esophagitis; E66.9 Obesity, unspecified; Z68.41 Body mass index [BMI] 40.0-44.9, adult; Z86.16 Personal history of COVID-19; Z88.5 Allergy status to narcotic agent
CPT/HCPCS: 94640; 99284; A9270

== ENCOUNTER 2021-04-06 23:25 | Emergency (ER) | payer MEDICAID ==
[2021-04-06 23:39] VITALS: BP 142/101; PULSE 83
[2021-04-07] MEDS ORDERED: Ketorolac 15 MG/ML SDV IM ONE (00:30)
[2021-04-07] MEDS ORDERED: diphenhydrAMINE 50 MG/ML SDV IM ONE (00:30)
== END 2021-04-07 01:44 | disposition home or self-care (01) ==
LOC: JD.ED 23:25
DX: J06.9 Acute upper respiratory infection, unspecified (principal); J45.909 Unspecified asthma, uncomplicated; E66.9 Obesity, unspecified; Z68.43 Body mass index [BMI] 50.0-59.9, adult; Z87.891 Personal history of nicotine dependence; Z88.5 Allergy status to narcotic agent
CPT/HCPCS: 87651; 96372; 99283; J1200; J1885

== ENCOUNTER 2021-06-07 07:58 | Emergency (ER) | payer MEDICAID ==
[2021-06-07] MEDS ORDERED: Acetaminophen 325 MG Tab PO ONE (08:24)
[2021-06-07] MEDS ORDERED: Ondansetron 4 MG Tab.DIS PO ONE (08:24)
[2021-06-07] MEDS ORDERED: LORazepam 1 MG Tab PO ONE (08:24)
[2021-06-07 09:31] VITALS: BP 106/78; PULSE 86
== END 2021-06-07 09:31 | disposition home or self-care (01) ==
LOC: JD.ED 07:58
DX: R07.89 Other chest pain (principal); F41.9 Anxiety disorder, unspecified; E66.9 Obesity, unspecified; K21.9 Gastro-esophageal reflux disease without esophagitis; Z68.34 Body mass index [BMI] 34.0-34.9, adult; Z86.16 Personal history of COVID-19
CPT/HCPCS: 36415; 71045; 84484; 93005; 99285; A9270; 93010; 99284

== ENCOUNTER 2021-09-25 20:16 | Emergency (ER) | payer MEDICAID ==
[2021-09-25 20:43] VITALS: BP 139/96; PULSE 74
[2021-09-25] MEDS ORDERED: Sodium Chloride 0.9% 10 ML Syringe FLUSH PRN (20:54)
== END 2021-09-26 00:59 | disposition home or self-care (01) ==
LOC: JD.ED 20:16
DX: R20.2 Paresthesia of skin (principal); R60.0 Localized edema; I10 Essential (primary) hypertension; E66.9 Obesity, unspecified; Z68.42 Body mass index [BMI] 45.0-49.9, adult; Z86.73 Personal history of transient ischemic attack (TIA), and cerebral infarction without residual deficits; Z87.891 Personal history of nicotine dependence
CPT/HCPCS: 36415; 71275; 80053; 84484; 85025; 85379; 93005; 93970; 99284; J3490; 93010

== ENCOUNTER 2021-11-09 07:50 | Emergency (ER) | payer MEDICAID ==
[2021-11-09 08:06] VITALS: BP 123/82; PULSE 88
[2021-11-09] MEDS ORDERED: Metoclopramide 10 MG/2 ML SDV IVPUSH ONE (08:34)
[2021-11-09] MEDS ORDERED: LORazepam 2 MG/ML SDV IVPUSH ONE (08:34)
[2021-11-09] MEDS ORDERED: Dextrose 5%-Lactated Ringers 1,000 ML IV SCH (08:45)
[2021-11-09 08:47] LABS: CORONAVIRUS COVID-19 NAA NEGATIVE (NEGATIVE)
[2021-11-09] MEDS ORDERED: Potassium Chloride 20 MEQ Tab.ER PO ONE (09:57)
[2021-11-09] MEDS ORDERED: Potassium Chloride 10 MEQ in Premix Bag 1 BAG IV ONE (09:57)
== END 2021-11-09 11:31 | disposition home or self-care (01) ==
LOC: JD.ED 07:50
DX: R25.2 Cramp and spasm (principal); E86.9 Volume depletion, unspecified; E86.0 Dehydration; E87.6 Hypokalemia; E66.9 Obesity, unspecified; Z68.30 Body mass index [BMI] 30.0-30.9, adult; Z88.5 Allergy status to narcotic agent; Z86.16 Personal history of COVID-19; Z20.822 Contact with and (suspected) exposure to COVID-19
CPT/HCPCS: 0241U; 36415; 80053; 83540; 83735; 84466; 85025; 96361; 96374; 96375; 99284; A9270; J2060; J2765; J7121

== ENCOUNTER 2021-12-04 15:03 | Emergency (ER) | payer MEDICAID ==
[2021-12-04 18:11] VITALS: BP 100/46; PULSE 68
[2021-12-04] MEDS ORDERED: Potassium Chloride 20 MEQ Tab.ER PO ONE (19:07)
[2021-12-04] MEDS ORDERED: Acetaminophen 325 MG Tab PO ONE (19:22)
== END 2021-12-04 19:25 | disposition home or self-care (01) ==
LOC: JD.ED 15:03
DX: R07.81 Pleurodynia (principal); E87.6 Hypokalemia; J45.909 Unspecified asthma, uncomplicated; E66.9 Obesity, unspecified; Z68.41 Body mass index [BMI] 40.0-44.9, adult; Z88.6 Allergy status to analgesic agent; Z79.899 Other long term (current) drug therapy; Z86.16 Personal history of COVID-19; Z90.49 Acquired absence of other specified parts of digestive tract
CPT/HCPCS: 36415; 71101; 80053; 99283; A9270; 99284

== ENCOUNTER 2022-04-11 03:51 | Emergency (ER) | payer MEDICAID ==
[2022-04-11 04:04] VITALS: BP 122/69; PULSE 111
[2022-04-11] MEDS ORDERED: HYDROmorphone 1 MG/ML Syringe IM ONE (04:10)
[2022-04-11] MEDS ORDERED: Ketorolac 30 MG/ML SDV IM ONE (04:16)
== END 2022-04-11 05:00 | disposition home or self-care (01) ==
LOC: JD.ED 03:51
DX: S50.02XA Contusion of left elbow, initial encounter (principal); J45.909 Unspecified asthma, uncomplicated; E66.9 Obesity, unspecified; Z68.30 Body mass index [BMI] 30.0-30.9, adult; Z88.6 Allergy status to analgesic agent; Z79.899 Other long term (current) drug therapy; Z86.16 Personal history of COVID-19; Z90.49 Acquired absence of other specified parts of digestive tract; Z87.891 Personal history of nicotine dependence; W00.0XXA Fall on same level due to ice and snow, initial encounter
CPT/HCPCS: 73080; 96372; 99283; J1885

== ENCOUNTER 2022-08-04 02:06 | Emergency (ER) | payer OTHER ==
[2022-08-04 02:24] LABS: BASOPHILS ABSOLUTE AUTO 0.05 K/mm3 (0.01-0.08); BASOPHILS PERCENT AUTO 0.6 % (0.1-1.2); EOSINOPHILS ABSOLUTE AUTO 0.04 K/mm3 (0.04-0.36); EOSINOPHILS PERCENT AUTO 0.5 (0.7-5.8); HEMATOCRIT 39.4 % (34.1-44.9); HEMOGLOBIN 13.3 gm/dl (11.2-15.7); IMMATURE GRAN ABSOLUTE AUTO 0.02 K/mm3 (0.00-0.10); IMMATURE GRAN PERCENT AUTO 0.2 % (<=1.0); LYMPHOCYTES ABSOLUTE AUTO 3.32 K/mm3 (1.18-3.74); LYMPHOCYTES PERCENT AUTO 39.6 % (19.3-51.7); MEAN CORPUSCULAR HGB CONC 33.8 g/dl (32.2-35.5); MEAN CORPUSCULAR VOLUME 94.7 fl (79.4-94.8); MEAN PLATELET VOLUME 9.3 fl (9.4-12.3); MONOCYTES ABSOLUTE AUTO 0.44 K/mm3 (0.24-0.36); MONOCYTES PERCENT AUTO 5.3 % (4.7-12.5); NEUTROPHILS ABSOLUTE AUTO 4.51 K/mm3 (1.56-6.13); NEUTROPHILS PERCENT AUTO 53.8 % (34.0-71.1); PLATELET COUNT,PLT 311 K/mm3 (182-369); RED BLOOD CELL COUNT 4.16 M/mm3 (3.98-5.22); WHITE BLOOD CELL COUNT,WBC 8.38 K/mm3 (3.98-10.04)
[2022-08-04] MEDS ORDERED: Sodium Chloride 0.9% 1,000 ML IV ONE (02:34)
[2022-08-04 02:59] LABS: ALANINE AMINOTRANSFERASE,ALT 33 U/L (14-59); ALBUMIN 3.9 g/dl (3.4-5.0); ALKALINE PHOSPHATASE 87 U/L (46-116); ANION GAP 16.4 (5-15); ASPARTATE AMNIOTRANSFERASE,AST 16 U/L (15-37); BILIRUBIN TOTAL 0.2 mg/dL (0.2-1.0); BLOOD UREA NITROGEN,BUN 10 mg/dL (7-18); CALCIUM 8.2 mg/dL (8.5-10.1); CARBON DIOXIDE,CO2 22 mEq/L (21-32); CHLORIDE,CL 106 mEq/L (98-107); ESTIMATED GFR 73 mL/min (>60); ETHANOL BLOOD MEDICAL 0.38 gm% (0.00); GLUCOSE RANDOM 114 mg/dL (70-99); POTASSIUM,K 3.4 mEq/L (3.5-5.1); PROTEIN TOTAL,TP 7.7 g/dl (6.4-8.2); SODIUM,NA 141 mEq/L (136-145)
[2022-08-04 03:00] LABS: ACETAMINOPHEN 0 ug/mL (10-30)
[2022-08-04] MEDS ORDERED: Flumazenil 0.1 MG/ML 5 ML MDV ONE (03:11)
[2022-08-04] MEDS ORDERED: Sodium Chloride 0.9% 1,000 ML IV SCH (03:15)
[2022-08-04 03:38] LABS: BARBITURATE SCREEN,URINE NEGATIVE (CUTOFF=200); BENZODIAZEPINES SCREEN,URINE PRESUMPTIVE POSITIVE (CUTOFF=150); BUPRENORPHINE SCREEN,URINE NEGATIVE (CUTOFF=10); METHADONE SCREEN, URINE NEGATIVE (CUTOFF=200); METHAMPHETAMINES SCREEN, URINE NEGATIVE (CUTOFF=500); OXYCODONE SCREEN,URINE NEGATIVE (CUT0FF=100); PROPOXYPHENE SCREEN,URINE NEGATIVE (CUTOFF=300); THC SCREEN,URINE 20 NG/ML NEGATIVE (CUTOFF=50)
[2022-08-04 03:44] LABS: AMPHETAMINES SCREEN, URINE NEGATIVE (CUTOFF=500)
[2022-08-04 04:06] VITALS: BP 96/74
[2022-08-04 09:45] VITALS: PULSE 79
== END 2022-08-04 13:30 | disposition left against medical advice (07) ==
LOC: JD.ED 02:06
DX: T42.4X4A Poisoning by benzodiazepines, undetermined, initial encounter (principal); F10.920 Alcohol use, unspecified with intoxication, uncomplicated; J45.909 Unspecified asthma, uncomplicated; E66.9 Obesity, unspecified; Z68.28 Body mass index [BMI] 28.0-28.9, adult; Z86.16 Personal history of COVID-19; Z88.5 Allergy status to narcotic agent; Z79.899 Other long term (current) drug therapy
CPT/HCPCS: 36415; 80053; 80143; 80179; 80306; 80307; 81025; 85025; 93005; 96360; 96361; 99285; J7030; 93010

== ENCOUNTER 2023-01-08 12:46 | Emergency (ER) | payer OTHER ==
[2023-01-08] MEDS ORDERED: Sodium Chloride 0.9% 1,000 ML IV STA (13:38)
[2023-01-08] MEDS ORDERED: Sodium Chloride 0.9% 10 ML Syringe FLUSH PRN (13:38)
[2023-01-08 14:01] LABS: BASOPHILS ABSOLUTE AUTO 0.1 K/mm3 (0.0-0.2); BASOPHILS PERCENT AUTO 1.3 % (0.0-1.0); EOSINOPHILS ABSOLUTE AUTO 0.1 K/mm3 (0.0-0.4); EOSINOPHILS PERCENT AUTO 1.3 % (0.0-6.0); HEMATOCRIT 35.6 % (37.0-47.0); HEMOGLOBIN 12.1 gm/dl (12.0-16.0); IMMATURE GRAN ABSOLUTE AUTO 0.01 K/mm3 (0.00-0.05); IMMATURE GRAN PERCENT AUTO 0.3 % (0.0-0.4); LYMPHOCYTES PERCENT AUTO 52.6 % (24.0-44.0); MEAN CORPUSCULAR HEMOGLOBIN 32.2 pg (28.0-32.0); MEAN CORPUSCULAR VOLUME 94.7 fl (83.0-99.0); MEAN PLATELET VOLUME 8.8 fl (9.4-12.3); MONOCYTES ABSOLUTE AUTO 0.2 K/mm3 (0.0-0.8); MONOCYTES PERCENT AUTO 6.3 % (0.0-8.0); NEUTROPHILS ABSOLUTE AUTO 1.5 K/mm3 (1.8-7.7); NEUTROPHILS PERCENT AUTO 38.2 % (41.0-71.0); PLATELET COUNT,PLT 252 K/mm3 (150-400); RED BLOOD CELL COUNT 3.76 M/mm3 (4.10-5.30); WHITE BLOOD CELL COUNT,WBC 3.84 K/mm3 (3.9-11.3)
[2023-01-08 14:25] LABS: A/G RATIO 1.1 (1-2); ALBUMIN 3.7 g/dl (3.4-5.0); ANION GAP 15.6 (5-15); BILIRUBIN TOTAL 0.3 mg/dL (0.2-1.0); BUN/CREATININE RATIO 6.7 (14-18); CALCIUM 7.9 mg/dL (8.5-10.1); CREATININE 0.9 mg/dL (0.55-1.02); EST CRCL DRUG DOSING (CG) 79.99 mL/min; ETHANOL BLOOD MEDICAL 0.34 gm% (0.00); POTASSIUM,K 3.6 mEq/L (3.5-5.1); PROTEIN TOTAL,TP 7.2 g/dl (6.4-8.2)
[2023-01-08 16:43] VITALS: BP 120/80; PULSE 83
== END 2023-01-08 17:00 | disposition home or self-care (01) ==
LOC: JD.ED 12:46
DX: F10.180 Alcohol abuse with alcohol-induced anxiety disorder (principal); F17.210 Nicotine dependence, cigarettes, uncomplicated; E66.9 Obesity, unspecified; Z68.36 Body mass index [BMI] 36.0-36.9, adult; Z86.16 Personal history of COVID-19; Z79.899 Other long term (current) drug therapy; Z90.49 Acquired absence of other specified parts of digestive tract; Z88.5 Allergy status to narcotic agent
CPT/HCPCS: 36415; 80053; 80307; 85025; 96360; 99284; J7030; 99283

== ENCOUNTER 2023-10-24 18:40 | Emergency (ER) | payer OTHER ==
[2023-10-24 18:51] VITALS: BP 131/75; PULSE 74
== END 2023-10-24 19:10 | disposition left against medical advice (07) ==
LOC: JD.ED 18:40
DX: S90.122A Contusion of left lesser toe(s) without damage to nail, initial encounter (principal); M79.674 Pain in right toe(s); E66.9 Obesity, unspecified; Z88.5 Allergy status to narcotic agent; W18.40XA Slipping, tripping and stumbling without falling, unspecified, initial encounter
CPT/HCPCS: 73660-26-LT; 73660-26-T7; 73660-LT; 73660-T7; 99283

== ENCOUNTER 2023-10-24 19:32 | Emergency (ER) | payer OTHER ==
[2023-10-24] MEDS: Sodium Chloride 0.9% 1,000 ML IV SCH (19:55)
[2023-10-24 20:02] LABS: BASOPHILS ABSOLUTE AUTO 0.1 K/mm3 (0.0-0.2); BASOPHILS PERCENT AUTO 1.2 % (0.0-1.0); EOSINOPHILS PERCENT AUTO 0.6 % (0.0-6.0); HEMOGLOBIN 12.5 gm/dl (12.0-16.0); IMMATURE GRAN ABSOLUTE AUTO 0.01 K/mm3 (0.00-0.05); IMMATURE GRAN PERCENT AUTO 0.2 % (0.0-0.4); LYMPHOCYTES ABSOLUTE AUTO 1.6 K/mm3 (1.0-4.8); MEAN CORPUSCULAR HGB CONC 33.8 g/dl (32.0-36.0); MEAN CORPUSCULAR VOLUME 94.6 fl (83.0-99.0); MEAN PLATELET VOLUME 8.9 fl (9.4-12.3); MONOCYTES ABSOLUTE AUTO 0.4 K/mm3 (0.0-0.8); MONOCYTES PERCENT AUTO 7.5 % (0.0-8.0); NEUTROPHILS ABSOLUTE AUTO 2.9 K/mm3 (1.8-7.7); NEUTROPHILS PERCENT AUTO 58.5 % (41.0-71.0); PLATELET COUNT,PLT 254 K/mm3 (150-400); RED BLOOD CELL COUNT 3.91 M/mm3 (4.10-5.30); WHITE BLOOD CELL COUNT,WBC 4.91 K/mm3 (3.9-11.3)
[2023-10-24] MEDS: Ketorolac 30 MG/ML SDV IVPUSH ONE (20:29)
[2023-10-24 20:57] LABS: A/G RATIO 1.1 (1-2); ALANINE AMINOTRANSFERASE,ALT 112 U/L (14-59); ALBUMIN 3.5 g/dl (3.4-5.0); ALKALINE PHOSPHATASE 135 U/L (46-116); ANION GAP 13.2 (5-15); ASPARTATE AMNIOTRANSFERASE,AST 177 U/L (15-37); BILIRUBIN TOTAL 0.4 mg/dL (0.2-1.0); BLOOD UREA NITROGEN,BUN 7 mg/dL (7-18); BUN/CREATININE RATIO 7.8 (14-18); CALCIUM 7.9 mg/dL (8.5-10.1); CARBON DIOXIDE,CO2 24 mEq/L (21-32); CHLORIDE,CL 107 mEq/L (98-107); CREATININE 0.9 mg/dL (0.55-1.02); ESTIMATED GFR 82 mL/min (>60); ETHANOL BLOOD MEDICAL 0.24 gm% (0.00); GLUCOSE RANDOM 98 mg/dL (70-99); POTASSIUM,K 3.2 mEq/L (3.5-5.1); PROTEIN TOTAL,TP 6.6 g/dl (6.4-8.2); SODIUM,NA 141 mEq/L (136-145)
[2023-10-24 21:36] VITALS: BP 104/71; PULSE 79
== END 2023-10-24 21:35 | disposition home or self-care (01) ==
LOC: JD.ED 19:32
DX: M79.674 Pain in right toe(s) (principal); M79.675 Pain in left toe(s); E87.6 Hypokalemia; F10.120 Alcohol abuse with intoxication, uncomplicated; R94.5 Abnormal results of liver function studies; E66.9 Obesity, unspecified; Z86.16 Personal history of COVID-19; Z79.899 Other long term (current) drug therapy; Z88.5 Allergy status to narcotic agent; Z88.8 Allergy status to other drugs, medicaments and biological substances
CPT/HCPCS: 36415; 80053; 80307; 84484; 85025; 93005; 96361; 96374; 99285; J1885; J7030

== ENCOUNTER 2024-01-26 22:06 | Emergency (ER) | payer OTHER ==
[2024-01-26 22:16] VITALS: BP 131/96; PULSE 102
== END 2024-01-26 22:35 | disposition left against medical advice (07) ==
LOC: JD.ED 22:06 → EEVIPCON 22:06 → JD.ED 22:35
DX: T76.21XA Adult sexual abuse, suspected, initial encounter (principal); M25.531 Pain in right wrist; J45.909 Unspecified asthma, uncomplicated; Z90.49 Acquired absence of other specified parts of digestive tract; Z88.5 Allergy status to narcotic agent; E11.9 Type 2 diabetes mellitus without complications
CPT/HCPCS: 73120-26-RT; 73120-RT; 99284

== ENCOUNTER 2024-01-30 11:55 | Emergency (ER) | payer OTHER ==
[2024-01-30 12:10] VITALS: BP 151/87; PULSE 79
[2024-01-30] MEDS ORDERED: Sodium Chloride 0.9% 10 ML Syringe FLUSH PRN ×2 (12:25→12:30)
[2024-01-30] MEDS ORDERED: HYDROmorphone 0.5 MG/0.5 ML Syringe IVPUSH ONE (12:26)
[2024-01-30 12:58] LABS: BASOPHILS PERCENT AUTO 0.8 % (0.0-1.0); EOSINOPHILS ABSOLUTE AUTO 0.1 K/mm3 (0.0-0.4); EOSINOPHILS PERCENT AUTO 2.9 % (0.0-6.0); HEMATOCRIT 37.5 % (37.0-47.0); HEMOGLOBIN 12.7 gm/dl (12.0-16.0); IMMATURE GRAN ABSOLUTE AUTO 0.01 K/mm3 (0.00-0.05); IMMATURE GRAN PERCENT AUTO 0.3 % (0.0-0.4); LYMPHOCYTES ABSOLUTE AUTO 0.6 K/mm3 (1.0-4.8); LYMPHOCYTES PERCENT AUTO 16.2 % (24.0-44.0); MEAN CORPUSCULAR HEMOGLOBIN 32.1 pg (28.0-32.0); MEAN CORPUSCULAR HGB CONC 33.9 g/dl (32.0-36.0); MEAN CORPUSCULAR VOLUME 94.7 fl (83.0-99.0); MEAN PLATELET VOLUME 9.4 fl (9.4-12.3); MONOCYTES ABSOLUTE AUTO 0.2 K/mm3 (0.0-0.8); MONOCYTES PERCENT AUTO 5.3 % (0.0-8.0); NEUTROPHILS ABSOLUTE AUTO 2.8 K/mm3 (1.8-7.7); NEUTROPHILS PERCENT AUTO 74.5 % (41.0-71.0); PLATELET COUNT,PLT 205 K/mm3 (150-400); RED BLOOD CELL COUNT 3.96 M/mm3 (4.10-5.30); WHITE BLOOD CELL COUNT,WBC 3.77 K/mm3 (3.9-11.3)
[2024-01-30] MEDS: Sodium Chloride 0.9% 100 ML IV SCH (12:58)
[2024-01-30] MEDS: Iopamidol 612 MG/ML 100 ML Bottle IVPUSH ONE ×2 (12:59→13:00)
[2024-01-30] MEDS: Iopamidol 612 MG/ML 30 ML SDV IVPUSH ONE (13:00)
[2024-01-30] MEDS: Iopamidol 612 MG/ML 30 ML SDV IV ONE (13:00)
[2024-01-30] MEDS: fentaNYL 100 MCG/2 ML SDV IVPUSH ONE (13:05)
[2024-01-30] MEDS: Metoclopramide 10 MG/2 ML SDV IVPUSH ONE (13:06)
[2024-01-30 13:37] LABS: A/G RATIO 1.1 (1-2); ALBUMIN 3.7 g/dl (3.4-5.0); ANION GAP 15.6 (5-15); BILIRUBIN TOTAL 2.3 mg/dL (0.2-1.0); CALCIUM 8.3 mg/dL (8.5-10.1); EST CRCL DRUG DOSING (CG) 70.54 mL/min; POTASSIUM,K 3.6 mEq/L (3.5-5.1); PROTEIN TOTAL,TP 7.2 g/dl (6.4-8.2)
== END 2024-01-30 14:36 | disposition home or self-care (01) ==
LOC: JD.ED 11:55
DX: S06.0X0A Concussion without loss of consciousness, initial encounter (principal); S20.213A Contusion of bilateral front wall of thorax, initial encounter; S30.1XXA Contusion of abdominal wall, initial encounter; E66.9 Obesity, unspecified; Z88.5 Allergy status to narcotic agent; Z90.49 Acquired absence of other specified parts of digestive tract; Y04.8XXA Assault by other bodily force, initial encounter
CPT/HCPCS: 36415; 70450; 71260; 74177; 80053; 83690; 85025; 96374; 96375; 99284; J2765; J3010; J3490; Q9967

== ENCOUNTER 2024-05-23 18:25 | Emergency (ER) | payer OTHER ==
[2024-05-23 18:47] VITALS: BP 128/80; PULSE 103
[2024-05-23] MEDS: Acetaminophen 325 MG Tab PO ONE (19:12)
[2024-05-23] MEDS: Ondansetron 4 MG/2 ML SDV IVPUSH ONE (19:13)
== END 2024-05-23 19:16 | disposition home or self-care (01) ==
LOC: JD.ED 18:25
DX: S00.83XA Contusion of other part of head, initial encounter (principal); F10.920 Alcohol use, unspecified with intoxication, uncomplicated; E66.9 Obesity, unspecified; Z90.49 Acquired absence of other specified parts of digestive tract; Z86.16 Personal history of COVID-19; Z88.5 Allergy status to narcotic agent; Z68.37 Body mass index [BMI] 37.0-37.9, adult; W01.0XXA Fall on same level from slipping, tripping and stumbling without subsequent striking against object, initial encounter
CPT/HCPCS: 70450; 70450-26; 70486; 70486-26; 99284; 99285